=== PATIENT | female | born 1990 | race African-American/Black ===

== ENCOUNTER 2018-08-15 10:41 | Inpatient (IN) | payer OTHER ==
[2018-08-15 11:02] VITALS: BMI 21.4
--- NOTE | 2018-08-15 12:09 | HP ---
CIWA Score Nausea/Vomitin Muscle Tremors: 2 Anxiety: 2 Agitation: 2 Paroxysmal Sweats: 2 Orientation: 0-Oriented Tacttile Disturbances: 1-Very Mild Itch/Numbness Auditory Disturbances: 1-Very Mild Visual Disturbances: 0-None Headache: 2-Mild CIWA-Ar Total Score: 14 - Admission Criteria OASAS Guidelines: Admission for Medically Managed Detox: Requires at least one of the followin. CIWA greater than 12 2. Seizures within the past 24 hours 3. Delirium tremens within the past 24 hours 4. Hallucinations within the past 24 hours 5. Acute intervention needed for co occurring medical disorder 6. Acute intervention needed for co occurring psychiatric disorder 7. Severe withdrawal that cannot be handled at a lower level of care (continued vomiting, continued diarrhea, abnormal vital signs) requiring intravenous medication and/or fluids 8. Patient presents the following: CIWA greater than 12 Admission Criteria Met: Admission criteria met Admission ROS [facility] Chief Complaint: i need help to stop drinking alcohol Allergies/Adverse Reactions: Allergies Allergy/AdvReac Type Severity Reaction Status Date / Time No Known Allergies Allergy Verified 08/15/18 11:13 History of Present Illness: this 27 yearr old female with alcohol dependence,seeking detox,last treatment to 07/16/16, seizure last 04/25 weight loss depression,insomnia,anger longest period of sobriety 6 months - Ebola screening Have you traveled outside of the country in the last 21 days: No Have you had contact with anyone from an Ebola affected area: No Have you been sick,other than usual withdrawal symptoms: No Do you have a fever: No - Review of Systems Constitutional: Loss of Appetite, Malaise, Night Sweats, Changes in sleep, Weakness, Unintentional Wgt. Loss EENT: reports: Tearing, Nose Congestion Respiratory: reports: No Symptoms reported Cardiac: reports: Palpitations GI: reports: Diarrhea, Nausea, Abdominal cramping : reports: No Symptoms Reported Musculoskeletal: reports: Back Pain, Muscle Pain Integumentary: reports: Dryness Neuro: reports: Tremors Endocrine: reports: No Symptoms Reported Hematology: reports: No Symptoms Reported Psychiatric: reports: No Sypmtoms Reported, Judgement Intact, Mood/Affect Appropiate, Orientated x3 (insomnia), Anxious, Depressed Patient History - Patient Medical History Hx Anemia: No Hx Asthma: No Hx Chronic Obstructive Pulmonary Disease (COPD): No Hx Cancer: No Hx Cardiac Disorders: No Hx Congestive Heart Failure: No Hx Hypertension: No Hx Hypercholesterolemia: No Hx Pacemaker: No HX Cerebrovascular Accident: No Hx Seizures: Yes (LAST SEIZURE WAS 2017) Hx Dementia: No Hx Diabetes: No Hx Gastrointestinal Disorders: No Hx Liver Disease: No Hx Genitourinary Disorders: No Hx Sexually Transmitted Disorders: No Hx Renal Disease (ESRD): No Hx Thyroid Disease: No Hx Human Immunodeficiency Virus (HIV): No Hx Hepatitis C: No Hx Depression: Yes (anxiety,insomnia) Hx Suicide Attempt: No Hx Bipolar Disorder: No Hx Schizophrenia: No Other Medical History: no suicidal,no homicidal,sorethroat,coughinbng for 2 days with yellowish sp - Patient Surgical History Past Surgical History: No Hx Neurologic Surgery: No Hx Cataract Extraction: No Hx Cardiac Surgery: No Hx Lung Surgery: No Hx Breast Surgery: No Hx Breast Biopsy: No Hx Abdominal Surgery: No Hx Appendectomy: No Hx Cholecystectomy: No Hx Genitourinary Surgery: No Hx Section: No Hx Orthopedic Surgery: No Anesthesia Reaction: No - PPD History Previous Implant?: Yes Documented Results: Negative w/proof Implanted On Prior [facility] Admission?: Yes Date: 07/15/16 PPD to be Administered?: Yes - Reproductive History Patient is a Female of Child Bearing Age (11 -55 yrs old): Yes Last Menstrual Period: 07/22/18 Patient : No - Smoking Cessation Smoking history: Current every day smoker Have you smoked in the past 12 months: Yes Aproximately how many cigarettes per day: 5 If you are a former smoker, when did you quit?: may 2015( 6 months gestation ) Hx Chewing Tobacco Use: No Initiated information on smoking cessation: Yes 'Breaking Loose' booklet given: 08/15/18 - Substance & Tx. History Hx Alcohol Use: Yes Hx Substance Use: No Substance Use Type: Alcohol Hx Substance Use Treatment: Yes ([facility] 07/13/16 to 07/16/16) - Substances Abused Alcohol Route: Oral Frequency: Daily Amount used: 1PINT -1 LITER OF VODKA Age of first use: 17 Date of Last Use: 08/15/18 Family Disease History - Family Disease History Family History: Denies Admission Physical Exam BHS - Vital Signs Vital Signs: Vital Signs - 24 hr 01/08/19 11:01 Temperature 100.4 F H Pulse Rate 130 H Respiratory 20 Rate Blood Pressure 123/79 - Physical General Appearance: Yes: Moderate Distress, Tremorous, Irritable, Sweating, Anxious HEENTM: Yes: Normal ENT Inspection, FLORY, Pharynx Normal Respiratory: Yes: Lungs Clear, Normal Breath Sounds, No Respiratory Distress Neck: Yes: Within Normal Limits, Supple, Trachea in good position Breast: Yes: Breast Exam Deferred Cardiology: Yes: Within Normal Limits, Regular Rhythm, Regular Rate, S1, S2 Abdominal: Yes: Within Normal Limits, Normal Bowel Sounds, Non Tender, Flat, Soft Genitourinary: Yes: Within Normal Limits Back: Yes: Normal Inspection, Muscle Spasm Musculoskeletal: Yes: Back pain, Muscle Pain Extremities: Yes: Within Normal Limits, Normal Range of Motion, Tremors Neurological: Yes: cancellation clerk II-XII NML intact, Fully Oriented, Alert, Motor Strength 5/5 Integumentary: Yes: Dry Lymphatic: Yes: Within Normal Limits - Diagnostic (1) Alcohol dependence with uncomplicated withdrawal Current Visit: No Status: Chronic (2) Palpitations Current Visit: No Status: Acute (3) Nicotine dependence Current Visit: No Status: Chronic (4) URI (upper respiratory infection) Current Visit: Yes Status: Acute (5) Acute bronchitis Current Visit: Yes Status: Acute Cleared for Admission [facility] - Detox or Rehab [facility] Level of Care: Medically Managed Detox Regimen/Protocol: Librium [facility] Breath Alcohol Content Breath Alcohol Content: 0.013 Urine Pregancy Test - Result Urine Test Results: Negative- NO Line Present Urine Drug Screen - Results Drug Screen Negative: Yes
[2018-08-15] MEDS ORDERED: levETIRAcetam 500 MG TABLET (FP) PO SCH (14:00)
[2018-08-15] MEDS ORDERED: CEPHALEXIN MONOHYDRATE 500 MG CAPSULE (UD) PO SCH (14:00)
[2018-08-15] MEDS ORDERED: P-EPHED 60MG/TRIPROLIDI 2.5MG TABLET PO PRN (14:32)
[2018-08-15] MEDS ORDERED: chlordiazePOXIDE HCL 25 MG CAPSULE PO PRN (14:32)
[2018-08-15] MEDS ORDERED: MAGNESIUM HYDROX 2400MG/30ML ORAL SUSPENSION 30 ML CUP PO PRN (14:32)
[2018-08-15] MEDS ORDERED: ACETAMINOPHEN 325 MG TABLET (FP) PO PRN (14:32)
[2018-08-15] MEDS ORDERED: guaiFENesin/D-METHORPHAN HB 10 ML UNIT-DOSE CUPS PO PRN (14:32)
[2018-08-15] MEDS ORDERED: IBUPROFEN 400 MG TABLET (FP) PO PRN (14:32)
[2018-08-15] MEDS ORDERED: hydrOXYzine PAMOATE 50 MG CAPSULE (FP) PO PRN (14:32)
[2018-08-15] MEDS ORDERED: MAGNESIUM CITRATE 300 ML BOTTLE PO PRN (14:32)
[2018-08-15] MEDS ORDERED: LOPERAMIDE HCL 2 MG CAPSULE PO PRN (14:32)
[2018-08-15] MEDS ORDERED: MAG HYDROX/AL HYDROX/SIMETH 30 ML UNIT-DOSE CUP PO PRN (14:32)
[2018-08-15] MEDS: CEPHALEXIN MONOHYDRATE 500 MG CAPSULE (UD) PO SCH ×2 (17:48→23:04)
[2018-08-15] MEDS: chlordiazePOXIDE HCL 25 MG CAPSULE PO SCH ×2 (17:48→22:07)
[2018-08-15] MEDS: levETIRAcetam 500 MG TABLET (FP) PO SCH (22:07)
[2018-08-15] MEDS: THIAMINE HCL 100 MG TABLET (FP) PO SCH (22:07)
[2018-08-15] MEDS: MELATONIN 5 MG TABLETS PO PRN (23:03)
[2018-08-16] MEDS: chlordiazePOXIDE HCL 25 MG CAPSULE PO SCH ×4 (05:19→22:13)
[2018-08-16] MEDS: CEPHALEXIN MONOHYDRATE 500 MG CAPSULE (UD) PO SCH ×4 (05:19→23:01)
[2018-08-16] MEDS: PRENATAL VITAMINS W/ FOLIC ACID TABLET (FP) PO SCH (10:20)
[2018-08-16] MEDS: levETIRAcetam 500 MG TABLET (FP) PO SCH ×2 (10:20→22:13)
[2018-08-16] MEDS: MENTHOL/PHENOL 1 EACH UD MM PRN (10:22)
[2018-08-16 10:24] LABS: HEMATOCRIT 37.9 % (32.4-45.2); MCH 32.5 pg (25.7-33.7); MCHC 31.7 g/dl (32.0-36.0); MEAN CELL VOLUME 102.4 fl (80-96); MEAN PLT VOLUME 9.7 fl (7.5-11.1); PLATELET COUNT 166 K/MM3 (134-434); RDW 13.5 % (11.6-15.6); WHITE BLOOD COUNT 9.5 K/mm3 (4.0-10.0)
--- NOTE | 2018-08-16 10:32 | PN ---
S CIWA - CIWA Score Nausea/Vomitin-No Nausea/No Vomiting Muscle Tremors: 3 Anxiety: 3 Agitation: 3 Paroxysmal Sweats: 3 Orientation: 0-Oriented Tacttile Disturbances: 0-None Auditory Disturbances: 0-None Visual Disturbances: 0-None Headache: 0-None Present CIWA-Ar Total Score: 12 BHS Progress Note (SOAP) Subjective: tired sweats interrupted sleep body aches Objective: 08/16/18 10:31 Vital Signs Temperature 97.3 F L 08/16/18 09:26 Pulse Rate 78 08/16/18 09:26 Respiratory Rate 18 08/16/18 09:26 Blood Pressure 111/78 08/16/18 09:26 O2 Sat by Pulse Oximetry (%) Assessment: 08/16/18 10:36 withdrawal sx Plan: continue detox increase fluids
[2018-08-16 11:10] LABS: ALBUMIN 3.9 g/dl (3.4-5.0); ALK PHOS 76 U/L (45-117); ANION GAP 14 MMOL/L (8-16); BILIRUBIN,TOTAL 1.4 mg/dL (0.2-1); BLOOD UREA NITROGEN 7 mg/dL (7-18); CALCIUM 9.3 mg/dL (8.5-10.1); CHLORIDE 96 mmol/L (98-107); CO2 24 mmol/L (21-32); CREATININE 0.7 mg/dL (0.55-1.3); GLUCOSE,RANDOM 78 mg/dL (74-106); POTASSIUM 3.8 mmol/L (3.5-5.1); SGOT/AST 51 U/L (15-37); SGPT/ALT 42 U/L (13-61); SODIUM 134 mmol/L (136-145); TOT PROT 8.7 g/dl (6.4-8.2)
[2018-08-16] MEDS: MELATONIN 5 MG TABLETS PO PRN (22:13)
[2018-08-16] MEDS: THIAMINE HCL 100 MG TABLET (FP) PO SCH (22:15)
[2018-08-17] MEDS: chlordiazePOXIDE HCL 25 MG CAPSULE PO SCH ×2 (05:56→10:32)
[2018-08-17] MEDS: CEPHALEXIN MONOHYDRATE 500 MG CAPSULE (UD) PO SCH ×4 (05:57→22:55)
[2018-08-17] MEDS: levETIRAcetam 500 MG TABLET (FP) PO SCH ×2 (10:32→22:16)
[2018-08-17] MEDS: PRENATAL VITAMINS W/ FOLIC ACID TABLET (FP) PO SCH (10:32)
[2018-08-17] MEDS: MENTHOL/PHENOL 1 EACH UD MM PRN (10:35)
--- NOTE | 2018-08-17 13:13 | PN ---
[facility] CIWA - CIWA Score Nausea/Vomitin-No Nausea/No Vomiting Muscle Tremors: None Anxiety: 0-No Anxiety, at Ease Agitation: 0-Normal Activity Paroxysmal Sweats: 3 Orientation: 2-Disoriented Date<2 days Tacttile Disturbances: 3-Moderate Itch/Numb/Burn Auditory Disturbances: 0-None Visual Disturbances: 3-Moderate Sensitivity Headache: 0-None Present CIWA-Ar Total Score: 11 S Progress Note (SOAP) Subjective: Sweating, Diarrhea, Fatigue, Body Aches, Interrupted Sleep. Objective: PATIENT A & O X 2 (UNCERTAIN ABOUT CURRENT DAY / DATE). IN NO ACUTE DISTRESS. 08/17/18 13:10 Vital Signs Temperature 97.5 F L 08/17/18 09:31 Pulse Rate 69 08/17/18 09:31 Respiratory Rate 18 08/17/18 09:31 Blood Pressure 113/67 08/17/18 09:31 O2 Sat by Pulse Oximetry (%) Laboratory Tests 08/16/18 08/16/18 08/16/18 05:45 05:45 05:45 WBC 9.5 RBC 3.70 Hgb 12.0 Hct 37.9 MCV 102.4 H MCH 32.5 MCHC 31.7 L RDW 13.5 D Plt Count 166 D MPV 9.7 D Sodium 134 L Potassium 3.8 Chloride 96 L Carbon Dioxide 24 Anion Gap 14 BUN 7 Creatinine 0.7 Creat Clearance w eGFR > 60 Random Glucose 78 Calcium 9.3 Total Bilirubin 1.4 H AST 51 H ALT 42 Alkaline Phosphatase 76 Total Protein 8.7 H Albumin 3.9 RPR Titer Nonreactive LABS NOTED. Assessment: 08/17/18 13:10 WITHDRAWAL SYMPTOMS. Plan: CONTINUE DETOX. INCREASE DAILY PO FLUID INTAKE. PRN IMMODIUM FOR DIARRHEA.
[2018-08-17] MEDS: chlordiazePOXIDE 5 MG CAPSULE PO SCH ×2 (18:30→22:19)
[2018-08-17] MEDS: THIAMINE HCL 100 MG TABLET (FP) PO SCH (22:16)
[2018-08-17] MEDS: MELATONIN 5 MG TABLETS PO PRN (22:18)
[2018-08-18] MEDS: chlordiazePOXIDE 5 MG CAPSULE PO SCH ×2 (05:12→10:34)
[2018-08-18] MEDS: CEPHALEXIN MONOHYDRATE 500 MG CAPSULE (UD) PO SCH ×4 (05:13→23:09)
[2018-08-18] MEDS: PRENATAL VITAMINS W/ FOLIC ACID TABLET (FP) PO SCH (10:33)
[2018-08-18] MEDS: levETIRAcetam 500 MG TABLET (FP) PO SCH ×2 (10:33→22:23)
--- NOTE | 2018-08-18 12:52 | PN ---
BHS Progress Note (SOAP) Subjective: Pt here for alcohol detox- states feeling tired, but feeling fine. O: Vital Signs - 24 hr 08/17/18 08/17/18 08/17/18 13:41 17:27 22:00 Temperature 98.2 F 97.9 F 98.1 F Pulse Rate 109 H 77 82 Respiratory 18 19 18 Rate Blood Pressure 142/60 116/59 L 119/70 08/18/18 08/18/18 08/18/18 03:30 06:41 09:25 Temperature 97.7 F 97.7 F Pulse Rate 91 H 78 Respiratory 16 16 18 Rate Blood Pressure 120/62 115/77 Laboratory Tests 08/16/18 08/16/18 08/16/18 05:45 05:45 05:45 WBC 9.5 RBC 3.70 Hgb 12.0 Hct 37.9 MCV 102.4 H MCH 32.5 MCHC 31.7 L RDW 13.5 D Plt Count 166 D MPV 9.7 D Sodium 134 L Potassium 3.8 Chloride 96 L Carbon Dioxide 24 Anion Gap 14 BUN 7 Creatinine 0.7 Creat Clearance w eGFR > 60 Random Glucose 78 Calcium 9.3 Total Bilirubin 1.4 H AST 51 H ALT 42 Alkaline Phosphatase 76 Total Protein 8.7 H Albumin 3.9 RPR Titer Nonreactive a/p: alcohol detox- continue detox protocol, pt doing well, considering going to rehab after completing detox
[2018-08-18] MEDS: chlordiazePOXIDE HCL 10 MG CAPSULE PO SCH ×2 (17:47→22:23)
[2018-08-18] MEDS: THIAMINE HCL 100 MG TABLET (FP) PO SCH (22:23)
[2018-08-18] MEDS: MELATONIN 5 MG TABLETS PO PRN (22:24)
[2018-08-19] MEDS: chlordiazePOXIDE HCL 10 MG CAPSULE PO SCH (05:24)
[2018-08-19] MEDS: CEPHALEXIN MONOHYDRATE 500 MG CAPSULE (UD) PO SCH (05:25)
[2018-08-19 06:42] VITALS: BP 106/61; PULSE 84; TEMP 98.2
--- NOTE | 2018-08-19 14:15 | DS ---
[facility] Discharge Summary Admission Date: 08/15/18 Discharge Date: 08/19/18 - History Additional Comments: Pt completed discharge. Pt left unit prior to provider arriving unit Vital Signs Temperature 98.2 F 08/19/18 06:00 Pulse Rate 84 08/19/18 06:00 Respiratory Rate 16 08/19/18 06:00 Blood Pressure 106/61 08/19/18 06:00 O2 Sat by Pulse Oximetry (%) - Physical Exam Results Vital Signs: Vital Signs Temperature 98.2 F 08/19/18 06:00 Pulse Rate 84 08/19/18 06:00 Respiratory Rate 16 08/19/18 06:00 Blood Pressure 106/61 08/19/18 06:00 O2 Sat by Pulse Oximetry (%) - Treatment Hospital Course: Detox Protocol Followed, Detoxed Safely, Responded well, Discharged Condition Good - Medication Discharge Medications: Ambulatory Orders Cephalexin [Keflex] 500 mg PO Q6H 08/15/18 Ibuprofen [Motrin -] 600 mg PO Q6H PRN 08/15/18 Lamotrigine [Lamictal] 25 mg PO DAILY 08/15/18 Multivit,Calc,Mins/Iron/Folic [Therapeutic-M Tablet] 1 each PO DAILY 08/15/18 Thiamine Mononitrate [Vitamin B-1] 100 mg PO DAILY 08/15/18 levETIRAcetam [Keppra -] 500 mg PO Q12H 08/15/18 - AMA Did Patient Leave Against Medical Advice: No
== END 2018-08-19 09:05 | disposition home or self-care (01) | DRG 775 ==
LOC: YASAS 10:41 → Y6N 13:06
PROC: HZ2ZZZZ Detoxification Services for Substance Abuse Treatment (ICD-10-PCS; principal; 2018-08-15)
DX: F10.230 Alcohol dependence with withdrawal, uncomplicated (principal); F17.210 Nicotine dependence, cigarettes, uncomplicated; F41.9 Anxiety disorder, unspecified; F32.9 Major depressive disorder, single episode, unspecified; G40.909 Epilepsy, unspecified, not intractable, without status epilepticus; R00.2 Palpitations; G47.00 Insomnia, unspecified; R63.4 Abnormal weight loss; Z68.21 Body mass index [BMI] 21.0-21.9, adult
CPT/HCPCS: 36415; 80053; 85027; 86593; 93005; 93010

== ENCOUNTER 2018-10-22 08:14 | Inpatient (IN) | payer OTHER ==
[2018-10-22 08:20] VITALS: BMI 20.7
--- NOTE | 2018-10-22 09:09 | HP ---
CIWA Score Nausea/Vomitin Muscle Tremors: 2 Anxiety: 2 Agitation: 2 Paroxysmal Sweats: 1-Minimal Palms Moist Orientation: 0-Oriented Tacttile Disturbances: 1-Very Mild Itch/Numbness Auditory Disturbances: 1-Very Mild Visual Disturbances: 0-None Headache: 2-Mild CIWA-Ar Total Score: 13 - Admission Criteria OASAS Guidelines: Admission for Medically Managed Detox: Requires at least one of the followin. CIWA greater than 12 2. Seizures within the past 24 hours 3. Delirium tremens within the past 24 hours 4. Hallucinations within the past 24 hours 5. Acute intervention needed for co occurring medical disorder 6. Acute intervention needed for co occurring psychiatric disorder 7. Severe withdrawal that cannot be handled at a lower level of care (continued vomiting, continued diarrhea, abnormal vital signs) requiring intravenous medication and/or fluids 8. Patient presents the following: CIWA greater than 12 Admission Criteria Met: Admission criteria met Admission ROS [facility]HS - HPI Chief Complaint: i need help to stop drinking alcohol Allergies/Adverse Reactions: Allergies Allergy/AdvReac Type Severity Reaction Status Date / Time No Known Allergies Allergy Verified 10/22/18 09:29 History of Present Illness: this 28 years old female with alcohol dependence seeking detox,withdrawal symptom, had previous admissions last 08/15/18 to 08/19/18 [facility] seizure for 2 years last 08/26 syncope alcohol related nicotine dependence ,6 cigarette/day no significant period of sobriety Exam Limitations: No Limitations - Ebola screening Have you traveled outside of the country in the last 21 days: No (N) Have you had contact with anyone from an Ebola affected area: No Have you been sick,other than usual withdrawal symptoms: No Do you have a fever: No - Review of Systems Constitutional: Loss of Appetite, Malaise, Night Sweats, Changes in sleep, Weakness, Unintentional Wgt. Loss EENT: reports: Nose Congestion Respiratory: reports: No Symptoms reported Cardiac: reports: No Symptoms Reported GI: reports: Nausea, Poor Appetite, Abdominal cramping : reports: No Symptoms Reported Musculoskeletal: reports: Back Pain, Muscle Pain Integumentary: reports: Dryness Neuro: reports: Tremors Endocrine: reports: No Symptoms Reported Hematology: reports: No Symptoms Reported Psychiatric: reports: No Sypmtoms Reported, Judgement Intact, Mood/Affect Appropiate, Orientated x3, other Other Systems: Reviewed and Negative Patient History - Patient Medical History Hx Anemia: No Hx Asthma: No Hx Chronic Obstructive Pulmonary Disease (COPD): No Hx Cancer: No Hx Cardiac Disorders: No Hx Congestive Heart Failure: No Hx Hypertension: No Hx Hypercholesterolemia: No Hx Pacemaker: No HX Cerebrovascular Accident: No Hx Seizures: Yes (last seizure 08/26) Hx Dementia: No Hx Diabetes: No Hx Gastrointestinal Disorders: No Hx Liver Disease: No Hx Genitourinary Disorders: No Hx Sexually Transmitted Disorders: No Hx Renal Disease (ESRD): No Hx Thyroid Disease: No Hx Human Immunodeficiency Virus (HIV): No (last 08/26 negative) Hx Hepatitis C: No Hx Depression: Yes (anxiety,insomnia) Hx Suicide Attempt: No Hx Bipolar Disorder: No Hx Schizophrenia: No Other Medical History: no suicidal,no homicidal - Patient Surgical History Past Surgical History: No Hx Neurologic Surgery: No Hx Cataract Extraction: No Hx Cardiac Surgery: No Hx Lung Surgery: No Hx Breast Surgery: No Hx Breast Biopsy: No Hx Abdominal Surgery: No Hx Appendectomy: No Hx Cholecystectomy: No Hx Genitourinary Surgery: No Hx Section: No Hx Orthopedic Surgery: No Anesthesia Reaction: No - PPD History Previous Implant?: Yes Documented Results: Negative w/proof Implanted On Prior [facility] Admission?: Yes Date: 08/17/18 Results: 0 mm PPD to be Administered?: No - Reproductive History Patient is a Female of Child Bearing Age (11 -55 yrs old): Yes Last Menstrual Period: 10/08/18 Patient : No - Smoking Cessation Smoking history: Current every day smoker Have you smoked in the past 12 months: Yes Aproximately how many cigarettes per day: 6 If you are a former smoker, when did you quit?: may 2015( 6 months gestation ) Hx Chewing Tobacco Use: No Initiated information on smoking cessation: Yes 'Breaking Loose' booklet given: 10/22/18 - Substance & Tx. History Hx Alcohol Use: Yes Hx Substance Use: No Substance Use Type: Alcohol Hx Substance Use Treatment: Yes ([facility] 08/15/18 to 08/19/18) - Substances Abused Alcohol Route: Oral Frequency: Daily Amount used: 1 pint of vodka Age of first use: 17 Date of Last Use: 10/22/18 Family Disease History - Family Disease History Family Disease History: Other: Mother (nmother ,sober) Admission Physical Exam BHS - Vital Signs Vital Signs: Vital Signs - 24 hr 10/22/18 08:18 Temperature 97.0 F L Pulse Rate 82 Respiratory 18 Rate Blood Pressure 120/88 - Physical General Appearance: Yes: Mild Distress, Intoxicated, Sweating, Anxious HEENTM: Yes: FLORY, Pharynx Normal Respiratory: Yes: Lungs Clear, Normal Breath Sounds, No Respiratory Distress Neck: Yes: Within Normal Limits, Supple, Trachea in good position Breast: Yes: Breast Exam Deferred Cardiology: Yes: Within Normal Limits, Regular Rhythm, Regular Rate, S1, S2 Abdominal: Yes: Within Normal Limits, Normal Bowel Sounds, Non Tender, Flat, Soft Genitourinary: Yes: Within Normal Limits Back: Yes: Muscle Spasm Musculoskeletal: Yes: Back pain, Muscle Pain Extremities: Yes: Tremors Neurological: Yes: flat surfacer jewel II-XII NML intact, Fully Oriented, Alert, Motor Strength 5/5 Integumentary: Yes: Dry Lymphatic: Yes: Within Normal Limits - Diagnostic (1) Alcohol dependence with uncomplicated withdrawal Current Visit: Yes Status: Acute (2) Alcohol dependence with uncomplicated intoxication Current Visit: Yes Status: Acute (3) Seizure Current Visit: Yes Status: Acute (4) Syncope Current Visit: Yes Status: Acute (5) Nicotine dependence Current Visit: No Status: Chronic Qualifiers: Nicotine product type: cigarettes Substance use status: uncomplicated Qualified Code(s): F17.210 - Nicotine dependence, cigarettes, uncomplicated (6) Weight loss Current Visit: No Status: Acute Cleared for Admission [facility] - Detox or Rehab [facility] Level of Care: Medically Managed Detox Regimen/Protocol: Librium [facility] Breath Alcohol Content Breath Alcohol Content: 0.303 Urine Pregancy Test - Result Urine Test Results: Negative - NO Line Present Urine Drug Screen - Results Drug Screen Negative: Yes Inpatient Rehab Admission - Rehab Decision to Admit Inpatient rehab admission?: No
[2018-10-22] MEDS ORDERED: BISMUTH SUBSALICYLATE 524 MG/30 ML UD PO PRN (09:20)
[2018-10-22] MEDS ORDERED: hydrOXYzine PAMOATE 25 MG CAPSULE (FP) PO PRN (09:20)
[2018-10-22] MEDS ORDERED: ACETAMINOPHEN 325 MG TABLET (FP) PO PRN ×2 (09:20)
[2018-10-22] MEDS ORDERED: METHOCARBAMOL 500 MG TABLET PO PRN (09:20)
[2018-10-22] MEDS ORDERED: IBUPROFEN 400 MG TABLET (FP) PO PRN (09:20)
[2018-10-22] MEDS ORDERED: MAGNESIUM CITRATE 300 ML BOTTLE PO PRN (09:20)
[2018-10-22] MEDS ORDERED: chlordiazePOXIDE HCL 25 MG CAPSULE PO PRN (09:20)
[2018-10-22] MEDS ORDERED: MAG HYDROX/AL HYDROX/SIMETH 30 ML UNIT-DOSE CUP PO PRN (09:20)
[2018-10-22] MEDS ORDERED: MAGNESIUM HYDROX 2400MG/30ML ORAL SUSPENSION 30 ML CUP PO PRN (09:20)
[2018-10-22] MEDS ORDERED: MENTHOL/PHENOL 1 EACH UD MM PRN (09:20)
[2018-10-22] MEDS: PRENATAL VITAMINS W/ FOLIC ACID TABLET (FP) PO SCH (11:51)
[2018-10-22] MEDS: levETIRAcetam 500 MG TABLET (FP) PO SCH ×2 (11:51→22:27)
[2018-10-22] MEDS: chlordiazePOXIDE HCL 25 MG CAPSULE PO SCH ×2 (17:48→22:27)
[2018-10-22] MEDS: THIAMINE HCL 100 MG TABLET (FP) PO SCH (22:27)
[2018-10-22] MEDS: MELATONIN 5 MG TABLETS PO PRN (22:28)
[2018-10-23] MEDS: chlordiazePOXIDE HCL 25 MG CAPSULE PO SCH ×4 (06:16→22:14)
[2018-10-23 10:00] LABS: URINE APPEARANCE SLCLOUDY; URINE BILIRUBIN NEGATIVE (<2.0 mg/dL); URINE COLOR AMBER; URINE GLUCOSE (UA) NEGATIVE (NEGATIVE); URINE KETONE NEGATIVE (NEGATIVE); URINE LEUK ESTERASE 1+ (NEGATIVE); URINE NITRITE NEGATIVE (NEGATIVE); URINE PROTEIN 1+ (NEGATIVE); URINE UROBILINOGEN 4.0 E.U/dl mg/dL (0.2-1.0)
[2018-10-23 10:01] LABS: HEMATOCRIT 31.3 % (32.4-45.2); HEMOGLOBIN 10.6 GM/dL (10.7-15.3); MCHC 33.9 g/dl (32.0-36.0); MEAN CELL VOLUME 100.3 fl (80-96); MEAN PLT VOLUME 7.8 fl (7.5-11.1); PLATELET COUNT 288 K/MM3 (134-434); RBC 3.12 M/mm3 (3.60-5.2); RDW 14.8 % (11.6-15.6); WHITE BLOOD COUNT 3.2 K/mm3 (4.0-10.0)
[2018-10-23 10:07] LABS: EPI CELLS FEW /HPF (FEW); URINE HYALINE CAST 2 /lpf; URINE MUCUS MANY
[2018-10-23 10:08] LABS: ALBUMIN 3.3 g/dl (3.4-5.0); ALK PHOS 63 U/L (45-117); ANION GAP 7 MMOL/L (8-16); BILIRUBIN,TOTAL 1.3 mg/dL (0.2-1); BLOOD UREA NITROGEN 4 mg/dL (7-18); CALCIUM 8.7 mg/dL (8.5-10.1); CHLORIDE 99 mmol/L (98-107); CO2 29 mmol/L (21-32); CREATININE 0.6 mg/dL (0.55-1.3); GLUCOSE,RANDOM 71 mg/dL (74-106); POTASSIUM 3.8 mmol/L (3.5-5.1); SGOT/AST 59 U/L (15-37); SGPT/ALT 77 U/L (13-61); SODIUM 136 mmol/L (136-145); TOT PROT 7.2 g/dl (6.4-8.2)
[2018-10-23] MEDS: PRENATAL VITAMINS W/ FOLIC ACID TABLET (FP) PO SCH (10:32)
[2018-10-23] MEDS: levETIRAcetam 500 MG TABLET (FP) PO SCH ×2 (10:32→22:14)
--- NOTE | 2018-10-23 10:45 | PN ---
[facility] CIWA - CIWA Score Nausea/Vomitin-No Nausea/No Vomiting Muscle Tremors: 3 Anxiety: 3 Agitation: 3 Paroxysmal Sweats: 3 Orientation: 0-Oriented Tacttile Disturbances: 0-None Auditory Disturbances: 0-None Visual Disturbances: 0-None Headache: 0-None Present CIWA-Ar Total Score: 12 S Progress Note (SOAP) Subjective: tired sweats shakes interrupted sleep body aches Objective: 10/23/18 10:43 Vital Signs Temperature 97.7 F 10/23/18 09:24 Pulse Rate 65 10/23/18 09:24 Respiratory Rate 18 10/23/18 09:24 Blood Pressure 111/64 10/23/18 09:24 O2 Sat by Pulse Oximetry (%) Laboratory Tests 10/23/18 10/23/18 10/23/18 07:40 07:40 07:40 WBC 3.2 L RBC 3.12 L Hgb 10.6 L Hct 31.3 L D MCV 100.3 H MCH 34.0 H MCHC 33.9 RDW 14.8 Plt Count 288 D MPV 7.8 D Sodium 136 Potassium 3.8 Chloride 99 Carbon Dioxide 29 Anion Gap 7 L BUN 4 L Creatinine 0.6 Creat Clearance w eGFR 119.04 Random Glucose 71 L Calcium 8.7 Total Bilirubin 1.3 H AST 59 H ALT 77 H Alkaline Phosphatase 63 Total Protein 7.2 Albumin 3.3 L Urine Color [place] Urine Appearance Slcloudy Urine pH 6.0 Ur Specific [place] 1.028 Urine Protein 1+ H Urine Glucose (UA) Negative Urine Ketones Negative Urine Blood Negative Urine Nitrite Negative Urine Bilirubin Negative Urine Urobilinogen 4.0 e.u/dl H Ur Leukocyte Esterase 1+ H Urine WBC (Auto) 30 Urine RBC (Auto) 24 Ur Epithelial Cells Few Hyaline Casts 2 Urine Mucus Many labs noted aaox3 ambulating no acute distress repeated labs and u/a Assessment: 10/23/18 10:45 withdrawal sx Plan: continue detox increase fluids
[2018-10-23] MEDS: MELATONIN 5 MG TABLETS PO PRN (22:15)
[2018-10-23] MEDS: THIAMINE HCL 100 MG TABLET (FP) PO SCH (22:15)
[2018-10-24] MEDS: chlordiazePOXIDE HCL 25 MG CAPSULE PO SCH ×2 (05:53→10:28)
[2018-10-24] MEDS: PRENATAL VITAMINS W/ FOLIC ACID TABLET (FP) PO SCH (10:28)
[2018-10-24] MEDS: levETIRAcetam 500 MG TABLET (FP) PO SCH ×2 (10:28→22:06)
[2018-10-24 11:23] LABS: BASO % 0.7 % (0-2.0); EOS % 2.9 % (0-4.5); HEMATOCRIT 37.5 % (32.4-45.2); HEMOGLOBIN 12.7 GM/dL (10.7-15.3); LYMPH % 40.8 % (8-40); MCH 34.6 pg (25.7-33.7); MCHC 33.9 g/dl (32.0-36.0); MEAN CELL VOLUME 101.9 fl (80-96); MONO % 9.1 % (3.8-10.2); NEUT % 46.5 % (42.8-82.8); PLATELET COUNT 305 K/MM3 (134-434); RBC 3.68 M/mm3 (3.60-5.2); WHITE BLOOD COUNT 4.6 K/mm3 (4.0-10.0)
[2018-10-24 11:42] LABS: ALBUMIN 3.6 g/dl (3.4-5.0); ALK PHOS 76 U/L (45-117); ANION GAP 5 MMOL/L (8-16); BILIRUBIN,TOTAL 1.1 mg/dL (0.2-1); BLOOD UREA NITROGEN 5 mg/dL (7-18); CALCIUM 9.6 mg/dL (8.5-10.1); CHLORIDE 99 mmol/L (98-107); CO2 32 mmol/L (21-32); CREATININE 0.6 mg/dL (0.55-1.3); GLUCOSE,RANDOM 74 mg/dL (74-106); POTASSIUM 4.3 mmol/L (3.5-5.1); SGOT/AST 55 U/L (15-37); SGPT/ALT 74 U/L (13-61); SODIUM 135 mmol/L (136-145); TOT PROT 8.1 g/dl (6.4-8.2)
--- NOTE | 2018-10-24 11:50 | PN ---
[facility] CIWA - CIWA Score Nausea/Vomitin-No Nausea/No Vomiting Muscle Tremors: 3 Anxiety: 3 Agitation: 3 Paroxysmal Sweats: 2 Orientation: 0-Oriented Tacttile Disturbances: 0-None Auditory Disturbances: 0-None Visual Disturbances: 0-None Headache: 0-None Present CIWA-Ar Total Score: 11 S Progress Note (SOAP) Subjective: irritable agitation low appetite Objective: 10/24/18 11:48 Vital Signs Temperature 98.3 F 10/24/18 09:38 Pulse Rate 69 10/24/18 09:38 Respiratory Rate 18 10/24/18 09:38 Blood Pressure 114/72 10/24/18 09:38 O2 Sat by Pulse Oximetry (%) Laboratory Tests 10/23/18 10/23/18 10/23/18 07:40 07:40 07:40 WBC 3.2 L RBC 3.12 L Hgb 10.6 L Hct 31.3 L D MCV 100.3 H MCH 34.0 H MCHC 33.9 RDW 14.8 Plt Count 288 D MPV 7.8 D Absolute Neuts (auto) Neutrophils % Lymphocytes % Monocytes % Eosinophils % Basophils % Nucleated RBC % Sodium 136 Potassium 3.8 Chloride 99 Carbon Dioxide 29 Anion Gap 7 L BUN 4 L Creatinine 0.6 Creat Clearance w eGFR 119.04 Random Glucose 71 L Calcium 8.7 Total Bilirubin 1.3 H AST 59 H ALT 77 H Alkaline Phosphatase 63 Total Protein 7.2 Albumin 3.3 L Urine Color Urine Appearance Urine pH Ur Specific [place] Urine Protein Urine Glucose (UA) Urine Ketones Urine Blood Urine Nitrite Urine Bilirubin Urine Urobilinogen Ur Leukocyte Esterase Urine WBC (Auto) Urine RBC (Auto) Ur Epithelial Cells Hyaline Casts Urine Mucus RPR Titer Nonreactive 10/23/18 10/24/18 10/24/18 07:40 07:30 07:30 WBC 4.6 RBC 3.68 Hgb 12.7 Hct 37.5 D MCV 101.9 H MCH 34.6 H MCHC 33.9 RDW 15.0 Plt Count 305 MPV 8.0 Absolute Neuts (auto) 2.1 Neutrophils % 46.5 Lymphocytes % 40.8 H Monocytes % 9.1 Eosinophils % 2.9 D Basophils % 0.7 Nucleated RBC % 0 Sodium 135 L Potassium 4.3 Chloride 99 Carbon Dioxide 32 Anion Gap 5 L BUN 5 L Creatinine 0.6 Creat Clearance w eGFR 119.04 Random Glucose 74 Calcium 9.6 Total Bilirubin 1.1 H AST 55 H ALT 74 H Alkaline Phosphatase 76 Total Protein 8.1 Albumin 3.6 Urine Color [place] Urine Appearance Slcloudy Urine pH 6.0 Ur Specific [place] 1.028 Urine Protein 1+ H Urine Glucose (UA) Negative Urine Ketones Negative Urine Blood Negative Urine Nitrite Negative Urine Bilirubin Negative Urine Urobilinogen 4.0 e.u/dl H Ur Leukocyte Esterase 1+ H Urine WBC (Auto) 30 Urine RBC (Auto) 24 Ur Epithelial Cells Few Hyaline Casts 2 Urine Mucus Many RPR Titer u/a pending labs noted; ast/alt improving aaox3 ambulating no acute distress Assessment: 10/24/18 11:50 withdrawal sx Plan: continue detox increase fluids u/a pending
[2018-10-24] MEDS ORDERED: chlordiazePOXIDE HCL 10 MG CAPSULE PO PRN (17:00)
[2018-10-24] MEDS: chlordiazePOXIDE HCL 10 MG CAPSULE PO SCH ×2 (17:32→22:08)
[2018-10-24 20:11] LABS: URINE APPEARANCE SLCLOUDY; URINE BILIRUBIN NEGATIVE (<2.0 mg/dL); URINE COLOR LTYELLOW; URINE GLUCOSE (UA) NEGATIVE (NEGATIVE); URINE KETONE NEGATIVE (NEGATIVE); URINE LEUK ESTERASE NEGATIVE (NEGATIVE); URINE NITRITE NEGATIVE (NEGATIVE); URINE PROTEIN NEGATIVE (NEGATIVE); URINE UROBILINOGEN NEGATIVE mg/dL (0.2-1.0)
[2018-10-24] MEDS: THIAMINE HCL 100 MG TABLET (FP) PO SCH (22:06)
[2018-10-24] MEDS: MELATONIN 5 MG TABLETS PO PRN (22:07)
[2018-10-25] MEDS: chlordiazePOXIDE HCL 10 MG CAPSULE PO SCH ×3 (05:46→17:47)
[2018-10-25] MEDS: levETIRAcetam 500 MG TABLET (FP) PO SCH ×2 (10:40→22:10)
[2018-10-25] MEDS: PRENATAL VITAMINS W/ FOLIC ACID TABLET (FP) PO SCH (10:40)
--- NOTE | 2018-10-25 14:14 | PN ---
[facility] Progress Note (SOAP) Subjective: feeling better sweats Objective: 10/25/18 14:14 Vital Signs Temperature 97.7 F 10/25/18 09:55 Pulse Rate 61 10/25/18 09:55 Respiratory Rate 18 10/25/18 09:55 Blood Pressure 117/59 L 10/25/18 09:55 O2 Sat by Pulse Oximetry (%) aaox3 ambulating no acute distress Assessment: 10/25/18 14:14 mild withdrawal sx Plan: continue detox increase fluids d/c in am
[2018-10-25] MEDS: MELATONIN 5 MG TABLETS PO PRN (22:09)
[2018-10-25] MEDS: THIAMINE HCL 100 MG TABLET (FP) PO SCH (22:09)
[2018-10-26] MEDS: chlordiazePOXIDE HCL 10 MG CAPSULE PO SCH (06:03)
[2018-10-26 10:09] VITALS: BP 100/73; PULSE 76; TEMP 97
[2018-10-26] MEDS: PRENATAL VITAMINS W/ FOLIC ACID TABLET (FP) PO SCH (10:11)
[2018-10-26] MEDS: levETIRAcetam 500 MG TABLET (FP) PO SCH (10:11)
--- NOTE | 2018-10-26 14:13 | DS ---
[facility] Detox Discharge Summary Admission Date: 10/22/18 Discharge Date: 10/26/18 - History Present History: Alcohol Dependence Additional Comments: PATIENT GOING TO [facility] ([place], [place]) FOR AFTERCARE. PATIENT WAS DISCHARGED FROM DETOX UNIT IN STABLE MEDICAL CONDITION. ACCORDING TO PHARMACIST 'ZENIA SALAZAR' AT [facility] ([place], [place]), PATIENT A REFILL OF KEPPRA (FOR PREVENTION OF SEIZURES) REMAINING AT THAT PHARMACY WAITING TO BE PICKED UP BY PATIENT. Pertinent Past History: History of Seizures, History of Depression, Anxiety, History of Insomnia, Weight Loss, Nicotine Dependence, Syncope. - Physical Exam Results Vital Signs: Vital Signs Temperature 97.0 F L 10/26/18 10:08 Pulse Rate 76 10/26/18 10:08 Respiratory Rate 16 10/26/18 10:08 Blood Pressure 100/73 10/26/18 10:08 O2 Sat by Pulse Oximetry (%) Pertinent Admission Physical Exam Findings: WITHDRAWAL SYMPTOMS. Laboratory Tests 10/23/18 10/23/18 10/23/18 07:40 07:40 07:40 WBC 3.2 L RBC 3.12 L Hgb 10.6 L Hct 31.3 L D MCV 100.3 H MCH 34.0 H MCHC 33.9 RDW 14.8 Plt Count 288 D MPV 7.8 D Absolute Neuts (auto) Neutrophils % Lymphocytes % Monocytes % Eosinophils % Basophils % Nucleated RBC % Sodium 136 Potassium 3.8 Chloride 99 Carbon Dioxide 29 Anion Gap 7 L BUN 4 L Creatinine 0.6 Creat Clearance w eGFR 119.04 Random Glucose 71 L Calcium 8.7 Total Bilirubin 1.3 H AST 59 H ALT 77 H Alkaline Phosphatase 63 Total Protein 7.2 Albumin 3.3 L Urine Color Urine Appearance Urine pH Ur Specific [place] Urine Protein Urine Glucose (UA) Urine Ketones Urine Blood Urine Nitrite Urine Bilirubin Urine Urobilinogen Ur Leukocyte Esterase Urine WBC (Auto) Urine RBC (Auto) Ur Epithelial Cells Hyaline Casts Urine Mucus RPR Titer Nonreactive 10/23/18 10/24/18 10/24/18 07:40 07:30 07:30 WBC 4.6 RBC 3.68 Hgb 12.7 Hct 37.5 D MCV 101.9 H MCH 34.6 H MCHC 33.9 RDW 15.0 Plt Count 305 MPV 8.0 Absolute Neuts (auto) 2.1 Neutrophils % 46.5 Lymphocytes % 40.8 H Monocytes % 9.1 Eosinophils % 2.9 D Basophils % 0.7 Nucleated RBC % 0 Sodium 135 L Potassium 4.3 Chloride 99 Carbon Dioxide 32 Anion Gap 5 L BUN 5 L Creatinine 0.6 Creat Clearance w eGFR 119.04 Random Glucose 74 Calcium 9.6 Total Bilirubin 1.1 H AST 55 H ALT 74 H Alkaline Phosphatase 76 Total Protein 8.1 Albumin 3.6 Urine Color [place] Urine Appearance Slcloudy Urine pH 6.0 Ur Specific [place] 1.028 Urine Protein 1+ H Urine Glucose (UA) Negative Urine Ketones Negative Urine Blood Negative Urine Nitrite Negative Urine Bilirubin Negative Urine Urobilinogen 4.0 e.u/dl H Ur Leukocyte Esterase 1+ H Urine WBC (Auto) 30 Urine RBC (Auto) 24 Ur Epithelial Cells Few Hyaline Casts 2 Urine Mucus Many RPR Titer 10/24/18 11:50 WBC RBC Hgb Hct MCV MCH MCHC RDW Plt Count MPV Absolute Neuts (auto) Neutrophils % Lymphocytes % Monocytes % Eosinophils % Basophils % Nucleated RBC % Sodium Potassium Chloride Carbon Dioxide Anion Gap BUN Creatinine Creat Clearance w eGFR Random Glucose Calcium Total Bilirubin AST ALT Alkaline Phosphatase Total Protein Albumin Urine Color Ltyellow Urine Appearance Slcloudy Urine pH 7.0 Ur Specific [place] 1.010 Urine Protein Negative Urine Glucose (UA) Negative Urine Ketones Negative Urine Blood Negative Urine Nitrite Negative Urine Bilirubin Negative Urine Urobilinogen Negative Ur Leukocyte Esterase Negative Urine WBC (Auto) Urine RBC (Auto) Ur Epithelial Cells Hyaline Casts Urine Mucus RPR Titer LABS NOTED. - Treatment Hospital Course: Detox Protocol Followed, Detoxed Safely, Responded well, Discharged Condition Good Patient has Accepted a Rehab Referral to: PT. REFERRED TO [facility] ([place], [place]). - Medication Discharge Medications: Ambulatory Orders Ibuprofen [Motrin -] 600 mg PO Q6H PRN 08/15/18 Lamotrigine [Lamictal] 25 mg PO DAILY 08/15/18 Multivit,Calc,Mins/Iron/Folic [Therapeutic-M Tablet] 1 each PO DAILY 08/15/18 Thiamine Mononitrate [Vitamin B-1] 100 mg PO DAILY 08/15/18 levETIRAcetam [Keppra -] 500 mg PO Q12H 08/15/18 - Diagnosis (1) Alcohol dependence with uncomplicated intoxication Status: Acute (2) Alcohol dependence with uncomplicated withdrawal Status: Acute (3) Seizure Status: Acute (4) Syncope Status: Acute Qualifiers: Syncope type: unspecified Qualified Code(s): R55 - Syncope and collapse (5) Weight loss Status: Acute (6) Nicotine dependence Status: Chronic Qualifiers: Nicotine product type: cigarettes Substance use status: uncomplicated Qualified Code(s): F17.210 - Nicotine dependence, cigarettes, uncomplicated - AMA Did Patient Leave Against Medical Advice: No
== END 2018-10-26 10:25 | disposition home or self-care (01) | DRG 775 ==
LOC: YASAS 08:14 → Y6N 09:21
PROVIDERS: ADMIT Surgery; ATTEND Surgery
PROC: HZ2ZZZZ Detoxification Services for Substance Abuse Treatment (ICD-10-PCS; principal; 2018-10-22)
DX: F10.230 Alcohol dependence with withdrawal, uncomplicated (principal); F17.213 Nicotine dependence, cigarettes, with withdrawal; F41.8 Other specified anxiety disorders; F32.9 Major depressive disorder, single episode, unspecified; G40.909 Epilepsy, unspecified, not intractable, without status epilepticus; G47.00 Insomnia, unspecified; R55 Syncope and collapse; R63.4 Abnormal weight loss; Z68.20 Body mass index [BMI] 20.0-20.9, adult
CPT/HCPCS: 36415; 80053; 81003; 81015; 85025; 85027; 86593

== ENCOUNTER 2018-11-21 19:06 | Inpatient (IN) | payer OTHER ==
[2018-11-21 22:38] VITALS: BMI 21.6
--- NOTE | 2018-11-21 23:53 | HP ---
CIWA Score Nausea/Vomitin-No Nausea/No Vomiting Muscle Tremors: 4-Moderate,w/Arms Extend Anxiety: 1-Mildly Anxious Agitation: 1-Slight > Activity Paroxysmal Sweats: 3 Orientation: 0-Oriented Tacttile Disturbances: 0-None Auditory Disturbances: 0-None Visual Disturbances: 0-None Headache: 0-None Present CIWA-Ar Total Score: 9 - Admission Criteria OAS Guidelines: Admission for Medically Managed Detox: Requires at least one of the followin. CIWA greater than 12 2. Seizures within the past 24 hours 3. Delirium tremens within the past 24 hours 4. Hallucinations within the past 24 hours 5. Acute intervention needed for co occurring medical disorder 6. Acute intervention needed for co occurring psychiatric disorder 7. Severe withdrawal that cannot be handled at a lower level of care (continued vomiting, continued diarrhea, abnormal vital signs) requiring intravenous medication and/or fluids 8. Patient presents the following: Acute intervention needed for co-occurring med or psych disorder Admission Criteria Met: Admission criteria met Admission ROS S - [facility] Chief Complaint: C/O WITHDRAWAL SX'S. SEEKING DETOX TXMENT Allergies/Adverse Reactions: Allergies Allergy/AdvReac Type Severity Reaction Status Date / Time No Known Allergies Allergy Verified 11/21/18 23:28 History of Present Illness: 28 Y.O. FEMALE WITH HX/O ALCOHOLISM HERE FOR DETOX. CLIENT IS SELF REFERRED. KNOWN TO THE PROGRAM. COMPLETED DETOX 1 MONTH AGO REPORTS RELAPSING SHORTLY THERE AFTER. PRESENTS WITH C/O WITHDRAWAL SX'S. CIWA 10. REPORTS HX/O ALCOHOL WITHDRAWAL SZ when abruptly stopping alcohol intake. LAST SZ 1 MONTH AGO. DENIES SI/HI/AVH. DENIES ANY SIGNIFICANT PERIOD OF CLEAN TIME. UNDOMICILED, HRA , DENIES LEGALS Exam Limitations: No Limitations - Ebola screening Have you traveled outside of the country in the last 21 days: No (N) Have you had contact with anyone from an Ebola affected area: No Do you have a fever: No - Review of Systems Constitutional: Chills, Loss of Appetite, Night Sweats, Changes in sleep EENT: reports: Dental Problems (TOOTH ACHE MISSING TEETH) Respiratory: reports: No Symptoms reported Cardiac: reports: No Symptoms Reported GI: reports: Diarrhea, Poor Appetite : reports: No Symptoms Reported Musculoskeletal: reports: No Symptoms Reported Integumentary: reports: Bruising, Flushing Neuro: reports: Seizure (R/T ALCOHOL WITHDRAWAL) Endocrine: reports: No Symptoms Reported Hematology: reports: No Symptoms Reported Psychiatric: reports: Orientated x3, Anxious, Depressed Other Systems: Reviewed and Negative Patient History - Patient Medical History Hx Anemia: No Hx Asthma: No Hx Chronic Obstructive Pulmonary Disease (COPD): No Hx Cancer: No Hx Cardiac Disorders: No Hx Congestive Heart Failure: No Hx Hypertension: No Hx Hypercholesterolemia: No Hx Pacemaker: No HX Cerebrovascular Accident: No Hx Seizures: Yes (LAST 10/24) Hx Dementia: No Hx Diabetes: No Hx Gastrointestinal Disorders: No Hx Liver Disease: No Hx Genitourinary Disorders: No Hx Sexually Transmitted Disorders: No Hx Renal Disease (ESRD): No Hx Thyroid Disease: No Hx Human Immunodeficiency Virus (HIV): No (last 08/26 negative) Hx Hepatitis C: No Hx Depression: Yes Hx Suicide Attempt: No Hx Bipolar Disorder: No Hx Schizophrenia: No - Patient Surgical History Past Surgical History: No Hx Neurologic Surgery: No Hx Cataract Extraction: No Hx Cardiac Surgery: No Hx Lung Surgery: No Hx Breast Surgery: No Hx Breast Biopsy: No Hx Abdominal Surgery: No Hx Appendectomy: No Hx Cholecystectomy: No Hx Genitourinary Surgery: No Hx Section: No Hx Orthopedic Surgery: No Anesthesia Reaction: No - PPD History Previous Implant?: Yes Documented Results: Negative w/proof Implanted On Prior [facility] Admission?: Yes Date: 08/17/18 Results: 0 mm PPD to be Administered?: No - Reproductive History Patient is a Female of Child Bearing Age (11 -55 yrs old): Yes Last Menstrual Period: 11/11/18 Patient : No ([facility]) - Smoking Cessation Smoking history: Current every day smoker Have you smoked in the past 12 months: Yes Aproximately how many cigarettes per day: 7 Cigars Per Day: 0 Hx Chewing Tobacco Use: No Initiated information on smoking cessation: Yes 'Breaking Loose' booklet given: 11/21/18 - Substance & Tx. History Hx Alcohol Use: Yes Hx Substance Use: Yes Substance Use Type: Alcohol Hx Substance Use Treatment: Yes ([facility]) - Substances abused Alcohol Substance route: Oral Frequency: Daily Amount used: 1 PINT- 1LITER Age of first use: 17 Date of last use: 11/20/18 Family Disease History - Family Disease History Family Disease History: Other: Mother (nmother ,sober) Admission Physical Exam [facility] - Vital Signs Vital Signs: Vital Signs - 24 hr 11/21/18 11/21/18 11/21/18 22:37 22:45 23:07 Temperature 98.5 F 98.5 F 98.5 F Pulse Rate 81 81 81 Respiratory 16 16 16 Rate Blood Pressure 106/75 106/75 106/75 - Physical General Appearance: Yes: Tremorous, Anxious HEENTM: Yes: EOMI, Normal ENT Inspection, Normocephalic, FLORY, Pharynx Normal, Other (MISSING TEETH) Respiratory: Yes: Chest Non-Tender, Lungs Clear, Normal Breath Sounds, No Respiratory Distress, No Accessory Muscle Use Neck: Yes: No masses,lesions,Nodules, Supple, Trachea in good position Breast: Yes: Breast Exam Deferred Cardiology: Yes: Regular Rhythm, Regular Rate, S1, S2 Abdominal: Yes: Non Tender, Soft, Increased Bowel Sounds Genitourinary: Yes: Within Normal Limits Back: Yes: Normal Inspection Musculoskeletal: Yes: full range of Motion, Gait Steady Extremities: Yes: Normal Range of Motion, Non-Tender, Tremors Neurological: Yes: Alert, Motor Strength 5/5, Depressed Affect Integumentary: Yes: Dry, Warm, Other (RESOLVING ECCHYMOSIS TO) Lymphatic: Yes: Within Normal Limits - Diagnostic (1) Cannabis abuse, uncomplicated Current Visit: Yes Status: Acute (2) Depressed affect Current Visit: Yes Status: Acute (3) Homeless Current Visit: Yes Status: Acute (4) At risk for dehydration due to poor fluid intake Current Visit: Yes Status: Acute (5) Alcohol dependence with uncomplicated withdrawal Current Visit: Yes Status: Acute (6) Nicotine dependence Current Visit: Yes Status: Chronic Qualifiers: Nicotine product type: cigarettes Substance use status: uncomplicated Qualified Code(s): F17.210 - Nicotine dependence, cigarettes, uncomplicated (7) Alcohol withdrawal seizure Current Visit: Yes Status: Chronic Qualifiers: Complication of substance-induced condition: uncomplicated Qualified Code(s ): F10.230 - Alcohol dependence with withdrawal, uncomplicated (8) Substance induced mood disorder Current Visit: Yes Status: Acute Cleared for Admission [facility] - Detox or Rehab [facility] Level of Care: Medically Managed Detox Regimen/Protocol: Librium Claeared for Rehab Admission: No Breathalyzer - Breathalyzer Breathalyzer: 0 POC Urine test - Test device test lot number: [id number] Expiration date: 04/07/20 - Control test control: Yes - Result Urine Test Results: Negative - NO line present Urine Drug Screen - Test Device Lot number: [id number] Expiration date: 07/07/20 - Control Is test valid?: Yes - Results Drug screen NEGATIVE: No Urine drug screen results: THC-Marijuana, BZO-Benzodiazepines Inpatient Rehab Admission - Rehab Decision to Admit Inpatient rehab admission?: No
[2018-11-22] MEDS ORDERED: DICYCLOMINE HCL 10 MG CAPSULE PO PRN
[2018-11-22] MEDS ORDERED: guaiFENesin 200 MG/10 ML 10 ML UNIT-DOSE CUPS PO PRN
[2018-11-22] MEDS ORDERED: BISMUTH SUBSALICYLATE 524 MG/30 ML UD PO PRN
[2018-11-22] MEDS ORDERED: ONDANSETRON *ODT* 4 MG TABLET SL PRN
[2018-11-22] MEDS ORDERED: chlordiazePOXIDE HCL 10 MG CAPSULE PO PRN
[2018-11-22] MEDS ORDERED: METHOCARBAMOL 500 MG TABLET PO PRN
[2018-11-22] MEDS ORDERED: MAG HYDROX/AL HYDROX/SIMETH 30 ML UNIT-DOSE CUP PO PRN
[2018-11-22] MEDS ORDERED: ACETAMINOPHEN 325 MG TABLET (FP) PO PRN ×2
[2018-11-22] MEDS ORDERED: MAGNESIUM CITRATE 300 ML BOTTLE PO PRN
[2018-11-22] MEDS ORDERED: MENTHOL/PHENOL 1 EACH UD MM PRN
[2018-11-22] MEDS ORDERED: IBUPROFEN 400 MG TABLET (FP) PO PRN ×2
[2018-11-22] MEDS ORDERED: P-EPHED 60MG/TRIPROLIDI 2.5MG TABLET PO PRN
[2018-11-22] MEDS ORDERED: NICOTINE POLACRILEX 2 MG GUM BUC PRN
[2018-11-22] MEDS ORDERED: MAGNESIUM HYDROX 2400MG/30ML ORAL SUSPENSION 30 ML CUP PO PRN
[2018-11-22] MEDS ORDERED: chlordiazePOXIDE HCL 25 MG CAPSULE PO ONE
[2018-11-22] MEDS: levETIRAcetam 500 MG TABLET (FP) PO SCH ×3 (01:12→22:16)
[2018-11-22] MEDS: chlordiazePOXIDE HCL 25 MG CAPSULE PO SCH ×3 (05:53→22:16)
[2018-11-22] MEDS: PRENATAL VITAMINS W/ FOLIC ACID TABLET (FP) PO SCH (09:44)
[2018-11-22] MEDS: NICOTINE 14 MG/24 HOURS TOPICAL PATCH TD SCH (09:44)
--- NOTE | 2018-11-22 12:09 | PN ---
S CIWA - CIWA Score Nausea/Vomitin-No Nausea/No Vomiting Muscle Tremors: 3 Anxiety: 3 Agitation: 3 Paroxysmal Sweats: 3 Orientation: 0-Oriented Tacttile Disturbances: 0-None Auditory Disturbances: 0-None Visual Disturbances: 0-None Headache: 0-None Present CIWA-Ar Total Score: 12 [facility] Progress Note (SOAP) Subjective: restless agitation interrupted sleep body aches sweats Objective: 11/22/18 12:09 Vital Signs Temperature 97.9 F 11/22/18 09:40 Pulse Rate 57 L 11/22/18 09:40 Respiratory Rate 16 11/22/18 09:40 Blood Pressure 108/69 11/22/18 09:40 O2 Sat by Pulse Oximetry (%) labs pending aaox3 ambulating no acute distress Assessment: 11/22/18 12:09 withdrawal sx Plan: continue detox increase fluids pending labs ensure bid
[2018-11-22 15:01] LABS: EPI CELLS 12.1 /HPF (0-5/HPF); PH,URINE 7.5 (5.0-8.0); URINE APPEARANCE TURBID; URINE BACTERIA 164.8 /hpf (NEGATIVE); URINE BILIRUBIN 1+ (NEGATIVE); URINE CASTS 20 /lpf (0-8); URINE COLOR DK YELLOW; URINE GLUCOSE (UA) NEGATIVE (NEGATIVE); URINE KETONE TRACE (NEGATIVE); URINE LEUK ESTERASE 2+ (NEGATIVE); URINE NITRITE NEGATIVE (NEGATIVE); URINE PROTEIN TRACE (NEGATIVE); URINE UROBILINOGEN 4.0 E.U/dl mg/dL (0.2-1.0); URINE WBC 33 /hpf (0-5)
[2018-11-22 15:57] LABS: URINE RBC NONE SEEN /hpf (0-4)
[2018-11-22] MEDS: THIAMINE HCL 100 MG TABLET (FP) PO SCH (22:17)
[2018-11-22] MEDS: MELATONIN 5 MG TABLETS PO PRN (22:17)
[2018-11-23] MEDS: chlordiazePOXIDE 5 MG CAPSULE PO SCH ×3 (05:28→22:07)
[2018-11-23] MEDS: NICOTINE 14 MG/24 HOURS TOPICAL PATCH TD SCH (10:56)
[2018-11-23] MEDS: PRENATAL VITAMINS W/ FOLIC ACID TABLET (FP) PO SCH (10:56)
[2018-11-23] MEDS: levETIRAcetam 500 MG TABLET (FP) PO SCH ×2 (10:56→22:07)
[2018-11-23 10:58] LABS: HEMATOCRIT 34.7 % (32.4-45.2); HEMOGLOBIN 11.7 GM/dL (10.7-15.3); MCH 34.6 pg (25.7-33.7); MCHC 33.7 g/dl (32.0-36.0); MEAN CELL VOLUME 102.6 fl (80-96); MEAN PLT VOLUME 8.5 fl (7.5-11.1); PLATELET COUNT 230 K/MM3 (134-434); RBC 3.38 M/mm3 (3.60-5.2); RDW 14.4 % (11.6-15.6); WHITE BLOOD COUNT 4.2 K/mm3 (4.0-10.0)
--- NOTE | 2018-11-23 11:38 | PN ---
[facility] Progress Note Note: Patient does not want to be seen
[2018-11-23 12:15] LABS: ALBUMIN 3.4 g/dl (3.4-5.0); ALK PHOS 71 U/L (45-117); ANION GAP 5 MMOL/L (8-16); BILIRUBIN,TOTAL 0.5 mg/dL (0.2-1); BLOOD UREA NITROGEN 7 mg/dL (7-18); CALCIUM 9.6 mg/dL (8.5-10.1); CHLORIDE 100 mmol/L (98-107); CO2 31 mmol/L (21-32); CREATININE 0.6 mg/dL (0.55-1.3); GLUCOSE,RANDOM 78 mg/dL (74-106); POTASSIUM 4.1 mmol/L (3.5-5.1); SGOT/AST 57 U/L (15-37); SGPT/ALT 47 U/L (13-61); SODIUM 136 mmol/L (136-145); TOT PROT 7.7 g/dl (6.4-8.2)
--- NOTE | 2018-11-23 12:52 | PN ---
[facility] CIWA - CIWA Score Nausea/Vomitin-No Nausea/No Vomiting Muscle Tremors: 3 Anxiety: 3 Agitation: 3 Paroxysmal Sweats: 2 Orientation: 0-Oriented Tacttile Disturbances: 0-None Auditory Disturbances: 0-None Visual Disturbances: 0-None Headache: 0-None Present CIWA-Ar Total Score: 11 S Progress Note (SOAP) Subjective: sweats shakes body aches interrupted sleep low appetite Objective: 11/23/18 12:45 Vital Signs Temperature 98.1 F 11/23/18 10:53 Pulse Rate 60 11/23/18 10:53 Respiratory Rate 18 11/23/18 10:53 Blood Pressure 115/79 11/23/18 10:53 O2 Sat by Pulse Oximetry (%) Laboratory Tests 11/22/18 11/23/18 11/23/18 12:05 07:00 07:00 WBC 4.2 RBC 3.38 L Hgb 11.7 Hct 34.7 MCV 102.6 H MCH 34.6 H MCHC 33.7 RDW 14.4 Plt Count 230 D MPV 8.5 Sodium Potassium Chloride Carbon Dioxide Anion Gap BUN Creatinine Creat Clearance w eGFR Random Glucose Calcium Total Bilirubin AST ALT Alkaline Phosphatase Total Protein Albumin Urine Color Dk yellow Urine Appearance Turbid Urine pH 7.5 Ur Specific [place] 1.025 Urine Protein Trace Urine Glucose (UA) Negative Urine Ketones Trace H Urine Blood Negative Urine Nitrite Negative Urine Bilirubin 1+ H Urine Urobilinogen 4.0 e.u/dl H Ur Leukocyte Esterase 2+ H Urine WBC (Auto) 33 Urine RBC (Auto) None seen Urine Casts (Auto) 20 U Epithel Cells (Auto) 12.1 Urine Bacteria (Auto) 164.8 HIV 1&2 Antibody Screen Negative HIV P24 Antigen Negative 11/23/18 07:00 WBC RBC Hgb Hct MCV MCH MCHC RDW Plt Count MPV Sodium 136 Potassium 4.1 Chloride 100 Carbon Dioxide 31 Anion Gap 5 L BUN 7 Creatinine 0.6 Creat Clearance w eGFR 119.04 Random Glucose 78 Calcium 9.6 Total Bilirubin 0.5 AST 57 H ALT 47 Alkaline Phosphatase 71 Total Protein 7.7 Albumin 3.4 Urine Color Urine Appearance Urine pH Ur Specific [place] Urine Protein Urine Glucose (UA) Urine Ketones Urine Blood Urine Nitrite Urine Bilirubin Urine Urobilinogen Ur Leukocyte Esterase Urine WBC (Auto) Urine RBC (Auto) Urine Casts (Auto) U Epithel Cells (Auto) Urine Bacteria (Auto) HIV 1&2 Antibody Screen HIV P24 Antigen labs noted u/a with c&s ordered aaox3 ambulating no acute distress Assessment: 11/23/18 12:52 withdrawal sx pt was asked regarding her recent u/a result and if there is any s/s of urinary infection or pelvic pain. Pt is denies of any UTI s/s. Plan: continue detox increase fluids repeat u/a with c&s ordered, f/u pending results. pt advised to let RN or medical provider know if any urinary changes occur so we can provide the right course of treatment.
[2018-11-23] MEDS: hydrOXYzine PAMOATE 25 MG CAPSULE (FP) PO PRN (17:44)
[2018-11-23 20:20] LABS: PH,URINE 8.5 (5.0-8.0); URINE APPEARANCE CLOUDY; URINE BACTERIA 300.5 /hpf (NEGATIVE); URINE BILIRUBIN NEGATIVE (NEGATIVE); URINE CASTS 1 /lpf (0-8); URINE COLOR YELLOW; URINE GLUCOSE (UA) NEGATIVE (NEGATIVE); URINE KETONE NEGATIVE (NEGATIVE); URINE LEUK ESTERASE 2+ (NEGATIVE); URINE NITRITE NEGATIVE (NEGATIVE); URINE PROTEIN NEGATIVE (NEGATIVE); URINE RBC 2 /hpf (0-4); URINE UROBILINOGEN 0.2 mg/dL (0.2-1.0); URINE WBC 11 /hpf (0-5)
[2018-11-23] MEDS: THIAMINE HCL 100 MG TABLET (FP) PO SCH (22:07)
[2018-11-23] MEDS: MELATONIN 5 MG TABLETS PO PRN (22:08)
[2018-11-24] MEDS ORDERED: chlordiazePOXIDE HCL 10 MG CAPSULE PO PRN (05:00)
[2018-11-24] MEDS: chlordiazePOXIDE HCL 10 MG CAPSULE PO SCH ×3 (05:32→21:24)
[2018-11-24] MEDS: levETIRAcetam 500 MG TABLET (FP) PO SCH ×2 (10:24→21:24)
[2018-11-24] MEDS: NICOTINE 14 MG/24 HOURS TOPICAL PATCH TD SCH (10:24)
[2018-11-24] MEDS: PRENATAL VITAMINS W/ FOLIC ACID TABLET (FP) PO SCH (10:24)
--- NOTE | 2018-11-24 13:42 | PN ---
[facility] Progress Note Note: Vital Signs Temperature 96 F L 11/24/18 11:37 Pulse Rate 76 11/24/18 11:37 Respiratory Rate 16 11/24/18 11:37 Blood Pressure 122/94 11/24/18 11:37 O2 Sat by Pulse Oximetry (%) Laboratory Tests 11/22/18 11/23/18 11/23/18 12:05 07:00 07:00 WBC 4.2 RBC 3.38 L Hgb 11.7 Hct 34.7 MCV 102.6 H MCH 34.6 H MCHC 33.7 RDW 14.4 Plt Count 230 D MPV 8.5 Sodium Potassium Chloride Carbon Dioxide Anion Gap BUN Creatinine Creat Clearance w eGFR Random Glucose Calcium Total Bilirubin AST ALT Alkaline Phosphatase Total Protein Albumin Urine Color Dk yellow Urine Appearance Turbid Urine pH 7.5 Ur Specific [place] 1.025 Urine Protein Trace Urine Glucose (UA) Negative Urine Ketones Trace H Urine Blood Negative Urine Nitrite Negative Urine Bilirubin 1+ H Urine Urobilinogen 4.0 e.u/dl H Ur Leukocyte Esterase 2+ H Urine WBC (Auto) 33 Urine RBC (Auto) None seen Urine Casts (Auto) 20 U Epithel Cells (Auto) 12.1 Urine Bacteria (Auto) 164.8 HIV 1&2 Antibody Screen Negative HIV P24 Antigen Negative 11/23/18 11/23/18 07:00 17:00 WBC RBC Hgb Hct MCV MCH MCHC RDW Plt Count MPV Sodium 136 Potassium 4.1 Chloride 100 Carbon Dioxide 31 Anion Gap 5 L BUN 7 Creatinine 0.6 Creat Clearance w eGFR 119.04 Random Glucose 78 Calcium 9.6 Total Bilirubin 0.5 AST 57 H ALT 47 Alkaline Phosphatase 71 Total Protein 7.7 Albumin 3.4 Urine Color Yellow Urine Appearance Cloudy Urine pH 8.5 H Ur Specific [place] 1.009 L Urine Protein Negative Urine Glucose (UA) Negative Urine Ketones Negative Urine Blood Negative Urine Nitrite Negative Urine Bilirubin Negative Urine Urobilinogen 0.2 Ur Leukocyte Esterase 2+ H Urine WBC (Auto) 11 Urine RBC (Auto) 2 Urine Casts (Auto) 1 U Epithel Cells (Auto) 27.0 Urine Bacteria (Auto) 300.5 HIV 1&2 Antibody Screen HIV P24 Antigen c/o of interrupted sleep, back pain, body aches AOx3, no acute distress, +back pain, full ROM ambulating in the unit withdrawal sx u/a improve from previous UC results pending increase po fluids continue detox robaxin prn for back pain continue to monitor
[2018-11-24] MEDS: hydrOXYzine PAMOATE 25 MG CAPSULE (FP) PO PRN (21:25)
[2018-11-24] MEDS: THIAMINE HCL 100 MG TABLET (FP) PO SCH (21:30)
[2018-11-24 21:56] VITALS: TEMP 98.1
[2018-11-25] MEDS: chlordiazePOXIDE HCL 10 MG CAPSULE PO SCH (05:23)
[2018-11-25] MEDS: PRENATAL VITAMINS W/ FOLIC ACID TABLET (FP) PO SCH (10:07)
[2018-11-25] MEDS: levETIRAcetam 500 MG TABLET (FP) PO SCH (10:07)
[2018-11-25] MEDS: NICOTINE 14 MG/24 HOURS TOPICAL PATCH TD SCH (10:08)
[2018-11-25 10:17] VITALS: BP 108/58; PULSE 94
--- NOTE | 2018-11-25 12:15 | DS ---
[facility] Detox Discharge Summary Admission Date: 11/21/18 Discharge Date: 11/25/18 - History Present History: Alcohol Dependence Additional Comments: Clinician discussed the importance of increased 12 step participation for recovery. Pt states this morning during rounds that, she has to get her kids first from her mother. Pt is medically stable for discharge home. Pertinent Past History: H/O seizures, depression, and alcohol use disorder. - Physical Exam Results Vital Signs: Vital Signs Temperature 98.1 F 11/25/18 10:16 Pulse Rate 94 H 11/25/18 10:16 Respiratory Rate 18 11/25/18 10:16 Blood Pressure 108/58 L 11/25/18 10:16 O2 Sat by Pulse Oximetry (%) Laboratory Last Values WBC 4.2 K/mm3 (4.0-10.0) 11/23/18 07:00 RBC 3.38 M/mm3 (3.60-5.2) L 11/23/18 07:00 Hgb 11.7 GM/dL (10.7-15.3) 11/23/18 07:00 Hct 34.7 % (32.4-45.2) 11/23/18 07:00 MCV 102.6 fl (80-96) H 11/23/18 07:00 MCH 34.6 pg (25.7-33.7) H 11/23/18 07:00 MCHC 33.7 g/dl (32.0-36.0) 11/23/18 07:00 RDW 14.4 % (11.6-15.6) 11/23/18 07:00 Plt Count 230 K/MM3 (134-434) D 11/23/18 07:00 MPV 8.5 fl (7.5-11.1) 11/23/18 07:00 Sodium 136 mmol/L (136-145) 11/23/18 07:00 Potassium 4.1 mmol/L (3.5-5.1) 11/23/18 07:00 Chloride 100 mmol/L (98-107) 11/23/18 07:00 Carbon Dioxide 31 mmol/L (21-32) 11/23/18 07:00 Anion Gap 5 MMOL/L (8-16) L 11/23/18 07:00 BUN 7 mg/dL (7-18) 11/23/18 07:00 Creatinine 0.6 mg/dL (0.55-1.3) 11/23/18 07:00 Creat Clearance w eGFR 119.04 (>60) 11/23/18 07:00 Random Glucose 78 mg/dL (74-106) 11/23/18 07:00 Calcium 9.6 mg/dL (8.5-10.1) 11/23/18 07:00 Total Bilirubin 0.5 mg/dL (0.2-1) 11/23/18 07:00 AST 57 U/L (15-37) H 11/23/18 07:00 ALT 47 U/L (13-61) 11/23/18 07:00 Alkaline Phosphatase 71 U/L (45-117) 11/23/18 07:00 Total Protein 7.7 g/dl (6.4-8.2) 11/23/18 07:00 Albumin 3.4 g/dl (3.4-5.0) 11/23/18 07:00 Urine Color Yellow 11/23/18 17:00 Urine Appearance Cloudy 11/23/18 17:00 Urine pH 8.5 (5.0-8.0) H 11/23/18 17:00 Ur Specific [place] 1.009 (1.010-1.035) L 11/23/18 17:00 Urine Protein Negative (NEGATIVE) 11/23/18 17:00 Urine Glucose (UA) Negative (NEGATIVE) 11/23/18 17:00 Urine Ketones Negative (NEGATIVE) 11/23/18 17:00 Urine Blood Negative (NEGATIVE) 11/23/18 17:00 Urine Nitrite Negative (NEGATIVE) 11/23/18 17:00 Urine Bilirubin Negative (NEGATIVE) 11/23/18 17:00 Urine Urobilinogen 0.2 mg/dL (0.2-1.0) 11/23/18 17:00 Ur Leukocyte Esterase 2+ (NEGATIVE) H 11/23/18 17:00 Urine WBC (Auto) 11 /hpf (0-5) 11/23/18 17:00 Urine RBC (Auto) 2 /hpf (0-4) 11/23/18 17:00 Urine Casts (Auto) 1 /lpf (0-8) 11/23/18 17:00 U Epithel Cells (Auto) 27.0 /HPF (0-5/HPF) 11/23/18 17:00 Urine Bacteria (Auto) 300.5 /hpf (NEGATIVE) 11/23/18 17:00 HIV 1&2 Antibody Screen Negative 11/23/18 07:00 HIV P24 Antigen Negative 11/23/18 07:00 Labs reviewed Pertinent Admission Physical Exam Findings: withdrawal symptoms - Treatment Hospital Course: Detox Protocol Followed, Detoxed Safely, Responded well, Discharged Condition Good - Medication Discharge Medications: Ambulatory Orders Ibuprofen [Motrin -] 600 mg PO Q6H PRN 08/15/18 Multivit,Calc,Mins/Iron/Folic [Therapeutic-M Tablet] 1 each PO DAILY 08/15/18 Thiamine Mononitrate [Vitamin B-1] 100 mg PO DAILY 08/15/18 levETIRAcetam [Keppra -] 500 mg PO Q12H 08/15/18 Lamotrigine [Lamictal -] 100 mg PO DAILY 11/21/18 - Diagnosis (1) Alcohol dependence with uncomplicated withdrawal Status: Acute (2) Depressed affect Status: Acute (3) Seizure Status: Acute (4) Substance induced mood disorder Status: Acute - AMA Did Patient Leave Against Medical Advice: No
== END 2018-11-25 11:10 | disposition home or self-care (01) | DRG 775 ==
LOC: YASAS 19:06 → Y6N 23:50
PROVIDERS: ADMIT Surgery; ATTEND Surgery
PROC: HZ2ZZZZ Detoxification Services for Substance Abuse Treatment (ICD-10-PCS; principal; 2018-11-21)
DX: F10.230 Alcohol dependence with withdrawal, uncomplicated (principal); F12.10 Cannabis abuse, uncomplicated; F17.210 Nicotine dependence, cigarettes, uncomplicated; F32.9 Major depressive disorder, single episode, unspecified; F19.24 Other psychoactive substance dependence with psychoactive substance-induced mood disorder; G40.909 Epilepsy, unspecified, not intractable, without status epilepticus; R63.8 Other symptoms and signs concerning food and fluid intake; Z59.0 Homelessness
CPT/HCPCS: 36415; 80053; 81003; 85027; 87077; 87086; 87389

== ENCOUNTER 2019-01-26 08:34 | Inpatient (IN) | payer OTHER ==
[2019-01-26 10:30] VITALS: BMI 22.3
--- NOTE | 2019-01-26 11:24 | HP ---
CIWA Score Nausea/Vomitin-No Nausea/No Vomiting Muscle Tremors: 2 Anxiety: 0-No Anxiety, at Ease Agitation: 1-Slight > Activity Paroxysmal Sweats: No Perspiration Orientation: 0-Oriented Tacttile Disturbances: 0-None Auditory Disturbances: 0-None Visual Disturbances: 0-None Headache: 0-None Present CIWA-Ar Total Score: 3 - Admission Criteria OASAS Guidelines: Admission for Medically Managed Detox: Requires at least one of the followin. CIWA greater than 12 2. Seizures within the past 24 hours 3. Delirium tremens within the past 24 hours 4. Hallucinations within the past 24 hours 5. Acute intervention needed for co occurring medical disorder 6. Acute intervention needed for co occurring psychiatric disorder 7. Severe withdrawal that cannot be handled at a lower level of care (continued vomiting, continued diarrhea, abnormal vital signs) requiring intravenous medication and/or fluids 8. Admission ROS S - HPI Allergies/Adverse Reactions: Allergies Allergy/AdvReac Type Severity Reaction Status Date / Time No Known Allergies Allergy Verified 01/26/19 10:22 History of Present Illness: pt here requesting detox from etoh use , reports w/d seizures if not drinking , latest seizure 2 mo ago , currently on meds from [facility] . tobacco : 08/11 ppd PMHX : denies pshx : January 2019 , ages 3 & 4 w/ MGM Exam Limitations: Clinical Condition, Intoxication - Ebola screening Have you traveled outside of the country in the last 21 days: No Have you had contact with anyone from an Ebola affected area: No Do you have a fever: No - Review of Systems Constitutional: See HPI, Loss of Appetite EENT: reports: Other (reading glasses) Respiratory: reports: No Symptoms reported Cardiac: reports: No Symptoms Reported GI: reports: No Symptoms Reported : reports: No Symptoms Reported Musculoskeletal: reports: No Symptoms Reported Integumentary: reports: No Symptoms Reported Neuro: reports: See HPI, Seizure Endocrine: reports: No Symptoms Reported Psychiatric: reports: Orientated x3, Anxious Patient History - Patient Medical History Hx Anemia: No Hx Asthma: No Hx Chronic Obstructive Pulmonary Disease (COPD): No Hx Cancer: No Hx Cardiac Disorders: No Hx Congestive Heart Failure: No Hx Hypertension: No Hx Hypercholesterolemia: No Hx Pacemaker: No HX Cerebrovascular Accident: No Hx Seizures: Yes (LAST 10/24) Hx Dementia: No Hx Diabetes: No Hx Gastrointestinal Disorders: No Hx Liver Disease: No Hx Genitourinary Disorders: No Hx Sexually Transmitted Disorders: No Hx Renal Disease (ESRD): No Hx Thyroid Disease: No Hx Human Immunodeficiency Virus (HIV): No (last 08/26 negative) Hx Hepatitis C: No Hx Depression: Yes Hx Suicide Attempt: No Hx Bipolar Disorder: No Hx Schizophrenia: No - Patient Surgical History Past Surgical History: No Hx Neurologic Surgery: No Hx Cataract Extraction: No Hx Cardiac Surgery: No Hx Lung Surgery: No Hx Breast Surgery: No Hx Breast Biopsy: No Hx Abdominal Surgery: No Hx Appendectomy: No Hx Cholecystectomy: No Hx Genitourinary Surgery: No Hx Section: No Hx Orthopedic Surgery: No Anesthesia Reaction: No - PPD History Date: 08/17/18 Results: 0 mm - Reproductive History Last Menstrual Period: 11/11/18 - Smoking Cessation Smoking history: Current every day smoker Have you smoked in the past 12 months: Yes Aproximately how many cigarettes per day: 7 If you are a former smoker, when did you quit?: may 2015( 6 months gestation ) Cigars Per Day: 0 Hx Chewing Tobacco Use: No Initiated information on smoking cessation: No - Substances abused Alcohol Substance route: Oral Frequency: Daily Amount used: 1 PINT- 1LITER Age of first use: 17 Date of last use: 01/26/19 Family Disease History - Family Disease History Family History: Unable to Obtain Admission Physical Exam BHS - Vital Signs Vital Signs: Vital Signs - 24 hr 01/26/19 10:25 Temperature 97.4 F L Pulse Rate 86 Respiratory 20 Rate Blood Pressure 104/73 - Physical General Appearance: Yes: Alcohol on Breath, Intoxicated, Anxious HEENTM: Yes: EOMI, Normocephalic, Normal Voice, Lessions (lower lip midline area of edema/ raised area - pt reports fall while intoxicated several weeks ago , states went to [facility] 2 weeks ago , was given abx PCN which she claims she completed and was told no sutures as she presented too late after the fall. Pt was avised to f/up w/ plastic surgery or oral surgeon for further eval & tx and is agreeable to do so after d/c .), Other Respiratory: Yes: Lungs Clear, Normal Breath Sounds, No Respiratory Distress, No Accessory Muscle Use Neck: Yes: No masses,lesions,Nodules, Trachea in good position Cardiology: Yes: Regular Rhythm, Regular Rate, S1, S2, Tachycardia Abdominal: Yes: Non Tender, Soft Musculoskeletal: Yes: Gait Steady Extremities: Yes: Normal Range of Motion, Non-Tender Neurological: Yes: Fully Oriented, Alert, Motor Strength 5/5 Integumentary: Yes: Warm - Diagnostic (1) Alcohol dependence with uncomplicated intoxication Current Visit: Yes Status: Acute Breathalyzer - Breathalyzer Breathalyzer: 0.301 POC Urine test - Test device test lot number: [id number] Expiration date: 04/07/20 - Control test control: Yes Urine Drug Screen - Test Device Lot number: [id number] Expiration date: 10/05/20 - Control Is test valid?: Yes - Results Drug screen NEGATIVE: Yes Urine drug screen results: THC-Marijuana, BZO-Benzodiazepines Inpatient Rehab Admission - Rehab Decision to Admit Inpatient rehab admission?: No
[2019-01-26] MEDS ORDERED: MENTHOL/PHENOL 1 EACH UD MM PRN (11:29)
[2019-01-26] MEDS ORDERED: ACETAMINOPHEN 325 MG TABLET (FP) PO PRN ×2 (11:29)
[2019-01-26] MEDS ORDERED: BISMUTH SUBSALICYLATE 262 MG/15 ML BTL PO PRN (11:29)
[2019-01-26] MEDS ORDERED: MAGNESIUM CITRATE 300 ML BOTTLE PO PRN (11:29)
[2019-01-26] MEDS ORDERED: hydrOXYzine PAMOATE 25 MG CAPSULE (FP) PO PRN (11:29)
[2019-01-26] MEDS ORDERED: MAG HYDROX/AL HYDROX/SIMETH 30 ML UNIT-DOSE CUP PO PRN (11:29)
[2019-01-26] MEDS ORDERED: MAGNESIUM HYDROX 2400MG/30ML ORAL SUSPENSION 30 ML CUP PO PRN (11:29)
[2019-01-26] MEDS ORDERED: chlordiazePOXIDE HCL 25 MG CAPSULE PO PRN (11:31)
[2019-01-26] MEDS: levETIRAcetam 500 MG TABLET (FP) PO SCH ×2 (13:12→23:48)
[2019-01-26] MEDS: lamoTRIgine 100 MG TABLET (FP) PO SCH (13:12)
[2019-01-26 16:08] LABS: HEMATOCRIT 36.3 % (32.4-45.2); HEMOGLOBIN 11.9 GM/dL (10.7-15.3); MCHC 32.9 g/dl (32.0-36.0); MEAN CELL VOLUME 100.4 fl (80-96); PLATELET COUNT 351 K/MM3 (134-434); RBC 3.61 M/mm3 (3.60-5.2); RDW 14.9 % (11.6-15.6); WHITE BLOOD COUNT 3.8 K/mm3 (4.0-10.0)
[2019-01-26 16:22] LABS: BILIRUBIN,TOTAL 0.7 mg/dL (0.2-1); BLOOD UREA NITROGEN 6.7 mg/dL (7-18); CALCIUM 9.1 mg/dL (8.5-10.1); CREATININE 0.7 mg/dL (0.55-1.3); POTASSIUM 3.7 mmol/L (3.5-5.1); TOT PROT 8.9 g/dl (6.4-8.2)
[2019-01-26] MEDS: chlordiazePOXIDE HCL 25 MG CAPSULE PO SCH ×2 (17:46→22:16)
[2019-01-26] MEDS: THIAMINE HCL 100 MG TABLET (FP) PO SCH (22:16)
[2019-01-26] MEDS: MELATONIN 5 MG TABLETS PO PRN (22:18)
[2019-01-27] MEDS: chlordiazePOXIDE HCL 25 MG CAPSULE PO SCH ×4 (05:36→22:36)
[2019-01-27] MEDS: lamoTRIgine 100 MG TABLET (FP) PO SCH (10:43)
[2019-01-27] MEDS: PRENATAL VITAMINS W/ FOLIC ACID TABLET (FP) PO SCH (10:43)
--- NOTE | 2019-01-27 11:05 | PN ---
S CIWA - CIWA Score Nausea/Vomitin-No Nausea/No Vomiting Muscle Tremors: None Anxiety: 2 Agitation: 0-Normal Activity Paroxysmal Sweats: 3 Orientation: 0-Oriented Tacttile Disturbances: 0-None Auditory Disturbances: 0-None Visual Disturbances: 0-None Headache: 0-None Present CIWA-Ar Total Score: 5 BHS Progress Note (SOAP) Subjective: c/o sweats and anxiety. Objective: 01/27/19 11:05 Vital Signs 01/27/19 01/27/19 01/27/19 03:30 03:56 04:30 Temperature Pulse Rate 76 76 72 Respiratory 18 Rate Blood Pressure 01/27/19 01/27/19 01/27/19 05:00 05:30 06:00 Temperature Pulse Rate 72 70 69 Respiratory 18 18 18 Rate Blood Pressure 01/27/19 01/27/19 01/27/19 06:30 06:47 07:00 Temperature 97.7 F Pulse Rate 66 66 62 Respiratory 18 18 18 Rate Blood Pressure 105/69 01/27/19 01/27/19 01/27/19 07:30 08:00 09:57 Temperature 98.4 F Pulse Rate 60 60 88 Respiratory 18 18 18 Rate Blood Pressure 101/63 Lab Results WBC 3.8 K/mm3 (4.0-10.0) L 01/26/19 12:35 RBC 3.61 M/mm3 (3.60-5.2) 01/26/19 12:35 Hgb 11.9 GM/dL (10.7-15.3) 01/26/19 12:35 Hct 36.3 % (32.4-45.2) 01/26/19 12:35 MCV 100.4 fl (80-96) H 01/26/19 12:35 MCHC 32.9 g/dl (32.0-36.0) 01/26/19 12:35 RDW 14.9 % (11.6-15.6) 01/26/19 12:35 Plt Count 351 K/MM3 (134-434) D 01/26/19 12:35 Sodium 141 mmol/L (136-145) 01/26/19 12:35 Potassium 3.7 mmol/L (3.5-5.1) 01/26/19 12:35 Chloride 102 mmol/L (98-107) 01/26/19 12:35 Carbon Dioxide 31 mmol/L (21-32) 01/26/19 12:35 Anion Gap 8 MMOL/L (8-16) 01/26/19 12:35 BUN 6.7 mg/dL (7-18) L 01/26/19 12:35 Creatinine 0.7 mg/dL (0.55-1.3) 01/26/19 12:35 Random Glucose 91 mg/dL (74-106) 01/26/19 12:35 Calcium 9.1 mg/dL (8.5-10.1) 01/26/19 12:35 Labs noted Assessment: 01/27/19 11:05 AOX3, in no acute distress. Full rom, ambulates in the unit. withdrawal signs Plan: continue detox.
[2019-01-27] MEDS: THIAMINE HCL 100 MG TABLET (FP) PO SCH (22:36)
[2019-01-27] MEDS: levETIRAcetam 500 MG TABLET (FP) PO SCH (22:36)
[2019-01-28] MEDS: chlordiazePOXIDE HCL 25 MG CAPSULE PO SCH ×2 (05:47→10:20)
[2019-01-28] MEDS: IBUPROFEN 400 MG TABLET (FP) PO PRN ×2 (05:49→12:34)
[2019-01-28] MEDS: levETIRAcetam 500 MG TABLET (FP) PO SCH ×2 (10:20→22:46)
[2019-01-28] MEDS: lamoTRIgine 100 MG TABLET (FP) PO SCH (10:20)
[2019-01-28] MEDS: PRENATAL VITAMINS W/ FOLIC ACID TABLET (FP) PO SCH (10:20)
--- NOTE | 2019-01-28 10:31 | PN ---
S CIWA - CIWA Score Nausea/Vomitin-Mild Nausea/No Vomiting Muscle Tremors: 2 Anxiety: 3 Agitation: 2 Paroxysmal Sweats: No Perspiration Orientation: 0-Oriented Tacttile Disturbances: 0-None Auditory Disturbances: 0-None Visual Disturbances: 0-None Headache: 1-Very Mild CIWA-Ar Total Score: 9 BHS Progress Note (SOAP) Subjective: this am co poor sleep, shakiness, and anxiety Objective: 01/28/19 10:30 Laboratory Tests 01/26/19 01/26/19 01/26/19 10:46 12:35 12:35 WBC 3.8 L RBC 3.61 Hgb 11.9 Hct 36.3 MCV 100.4 H MCH 33.0 MCHC 32.9 RDW 14.9 Plt Count 351 D MPV 7.0 L D Sodium 141 Potassium 3.7 Chloride 102 Carbon Dioxide 31 Anion Gap 8 BUN 6.7 L Creatinine 0.7 Est GFR (CKD-EPI)AfAm 136.66 Est GFR (CKD-EPI)NonAf 117.91 Random Glucose 91 Calcium 9.1 Total Bilirubin 0.7 AST 47 H ALT 36 Alkaline Phosphatase 73 Total Protein 8.9 H Albumin 4.0 POC Urine HCG, Qual Negative RPR Titer HIV 1&2 Antibody Screen HIV P24 Antigen 01/26/19 01/26/19 12:35 12:35 WBC RBC Hgb Hct MCV MCH MCHC RDW Plt Count MPV Sodium Potassium Chloride Carbon Dioxide Anion Gap BUN Creatinine Est GFR (CKD-EPI)AfAm Est GFR (CKD-EPI)NonAf Random Glucose Calcium Total Bilirubin AST ALT Alkaline Phosphatase Total Protein Albumin POC Urine HCG, Qual RPR Titer Nonreactive HIV 1&2 Antibody Screen Negative HIV P24 Antigen Negative Vital Signs - 24 hr 01/27/19 01/27/19 01/27/19 11:00 11:30 12:00 Temperature Pulse Rate 86 82 80 Respiratory 18 18 18 Rate Blood Pressure 01/27/19 01/27/19 01/28/19 18:00 22:47 00:30 Temperature 97.9 F 97.8 F Pulse Rate 64 60 Respiratory 16 17 18 Rate Blood Pressure 101/70 114/75 01/28/19 01/28/19 01/28/19 03:30 06:44 09:30 Temperature 97 F L 99 F Pulse Rate 71 82 Respiratory 18 18 20 Rate Blood Pressure 103/76 122/87 Assessment: 01/28/19 10:31 ongoing withdrawal Plan: continue detox protocol psych eval for continuationof standing regimen
--- NOTE | 2019-01-28 12:37 | CONSULT ---
[facility] Psychiatric Consult - Data Date of interview: 01/28/19 Admission source: Self-referred Identifying data: 28 y/o AA female , mother of 2, domiciled, unemployed, on welfare Substance Abuse History: Here for detox of alcohol. Patient drink vodka several times. week, she reports no history pof black out spelss but seizure disorder and withdrawal symptoms. Most recent reported seizure was in October. Refer to addiction counselor summary for more detailed alcohol use disorder Medical History: Patient medical and surgical history are unremarkable Psychiatric History: She started out patient mental health care treatment at a community clinic in [facility] in [place] in August 2018, she is treated with an antidepressant medication, patient does not recall medication name or dosage dosage. She complains of insomnia, fatigue, denies appetite disturbances. No suicidal or homicidal ideation Physical/Sexual Abuse/Trauma History: Denied Additional Comment: Past history pf incarceration for violation of probation Mental Status Exam - Mental Status Exam Alert and Oriented to: Time, Place, Person Cognitive Function: Fair Patient Appearance: Well Groomed Mood: Sad Affect: Appropriate Patient Behavior: Cooperative Speech Pattern: Clear Voice Loudness: Normal, Moderately Soft/Quiet Thought Process: Intact Thought Disorder: Not Present Hallucinations: None Suicidal Ideation: None Homicidal Ideation: None Insight/Judgement: Poor Sleep: Poorly Appetite: Fair Muscle strength/Tone: Normal Gait/Station: Normal Psychiatric Findings - Problem List ([place] 1, 2,3) (1) Depression Current Visit: Yes Status: Acute (2) Alcohol dependence with uncomplicated withdrawal Current Visit: No Status: Acute (3) Seizure Current Visit: No Status: Acute - Initial Treatment Plan Initial Treatment Plan: Continue Detox treatment. Contact patient out patient clinic to obtain information regarding her treatment for depression. Monotor response
[2019-01-28] MEDS ORDERED: chlordiazePOXIDE HCL 10 MG CAPSULE PO PRN (17:00)
[2019-01-28] MEDS: chlordiazePOXIDE HCL 10 MG CAPSULE PO SCH ×2 (17:45→22:46)
[2019-01-28] MEDS: THIAMINE HCL 100 MG TABLET (FP) PO SCH (22:46)
[2019-01-28] MEDS: MELATONIN 5 MG TABLETS PO PRN (22:46)
[2019-01-29] MEDS: chlordiazePOXIDE HCL 10 MG CAPSULE PO SCH ×2 (06:00→11:49)
[2019-01-29 06:29] VITALS: BP 100/69; PULSE 71; TEMP 97.8
[2019-01-29] MEDS: PRENATAL VITAMINS W/ FOLIC ACID TABLET (FP) PO SCH (11:49)
[2019-01-29] MEDS: levETIRAcetam 500 MG TABLET (FP) PO SCH (11:49)
[2019-01-29] MEDS: lamoTRIgine 100 MG TABLET (FP) PO SCH (11:49)
[2019-01-29] MEDS ORDERED: chlordiazePOXIDE HCL 10 MG CAPSULE PO SCH (17:00)
--- NOTE | 2019-01-29 18:30 | DS ---
[facility] Detox Discharge Summary Admission Date: 01/26/19 Discharge Date: 01/29/19 - History Present History: Alcohol Dependence Additional Comments: PATIENT DID NOT WISH TO REMAIN TO COMPLETE DETOX REGIMEN. PATIENT DID NOT WISH TO WAIT AND ELECTED TO LEAVE DETOX UNIT PRIOR TO TIME OF ARRIVAL OF FEATHER BALER ONTO DETOX UNIT. THUS, MEDICAL ASSESSMENT COULD BNOT BE DONE PRIOR TO PATIENT LEAVING DETOX UNIT. Pertinent Past History: History of Seizures, Depression, - Physical Exam Results Vital Signs: Vital Signs Temperature 97.8 F 01/29/19 06:28 Pulse Rate 71 01/29/19 06:28 Respiratory Rate 18 01/29/19 06:30 Blood Pressure 100/69 01/29/19 06:28 O2 Sat by Pulse Oximetry (%) Pertinent Admission Physical Exam Findings: WITHDRAWAL SYMPTOMS. Laboratory Tests 01/26/19 01/26/19 01/26/19 10:46 12:35 12:35 WBC 3.8 L RBC 3.61 Hgb 11.9 Hct 36.3 MCV 100.4 H MCH 33.0 MCHC 32.9 RDW 14.9 Plt Count 351 D MPV 7.0 L D Sodium 141 Potassium 3.7 Chloride 102 Carbon Dioxide 31 Anion Gap 8 BUN 6.7 L Creatinine 0.7 Est GFR (CKD-EPI)AfAm 136.66 Est GFR (CKD-EPI)NonAf 117.91 Random Glucose 91 Calcium 9.1 Total Bilirubin 0.7 AST 47 H ALT 36 Alkaline Phosphatase 73 Total Protein 8.9 H Albumin 4.0 POC Urine HCG, Qual Negative RPR Titer HIV 1&2 Antibody Screen HIV P24 Antigen 01/26/19 01/26/19 12:35 12:35 WBC RBC Hgb Hct MCV MCH MCHC RDW Plt Count MPV Sodium Potassium Chloride Carbon Dioxide Anion Gap BUN Creatinine Est GFR (CKD-EPI)AfAm Est GFR (CKD-EPI)NonAf Random Glucose Calcium Total Bilirubin AST ALT Alkaline Phosphatase Total Protein Albumin POC Urine HCG, Qual RPR Titer Nonreactive HIV 1&2 Antibody Screen Negative HIV P24 Antigen Negative LABS NOTED. - Treatment Hospital Course: Detox Protocol Followed, Detoxed Safely - Medication Discharge Medications: Ambulatory Orders levETIRAcetam [Keppra -] 500 mg PO Q12H 08/15/18 Lamotrigine [Lamictal -] 100 mg PO DAILY 11/21/18 - Diagnosis (1) Alcohol dependence with uncomplicated withdrawal Status: Acute (2) Alcohol dependence with uncomplicated intoxication Status: Acute (3) Depression Status: Acute Qualifiers: Depression Type: unspecified Qualified Code(s): F32.9 - Major depressive disorder, single episode, unspecified (4) Seizure Status: Acute - AMA Did Patient Leave Against Medical Advice: Yes (PATIENT DID NOT WISH TO REMAIN TO COMPLETE DETOX REGIMEN.)
== END 2019-01-29 08:42 | disposition left against medical advice (07) | DRG 770 ==
LOC: YASAS 08:34 → Y3N 11:51
PROVIDERS: ADMIT Surgery; ATTEND Surgery
PROC: HZ2ZZZZ Detoxification Services for Substance Abuse Treatment (ICD-10-PCS; principal; 2019-01-26)
DX: F10.230 Alcohol dependence with withdrawal, uncomplicated (principal); F10.220 Alcohol dependence with intoxication, uncomplicated; F13.10 Sedative, hypnotic or anxiolytic abuse, uncomplicated; F12.10 Cannabis abuse, uncomplicated; F17.210 Nicotine dependence, cigarettes, uncomplicated; F32.9 Major depressive disorder, single episode, unspecified; G40.509 Epileptic seizures related to external causes, not intractable, without status epilepticus
CPT/HCPCS: 36415; 80053; 81025; 85027; 86593; 87389

== ENCOUNTER 2019-02-15 00:11 | Emergency (ER) | payer OTHER ==
--- NOTE | 2019-02-15 00:28 | PDOC ---
Medical Decision Making - Medical Decision Making 02/15/19 00:28 Patient seen by the advanced practice provider under my direct supervision. Ancillary testing reviewed as necessary. I agree with plan as outlined by the advanced practice provider. *DC/Admit/Observation/Transfer Diagnosis at time of Disposition: Alcoholism /alcohol abuse - Referrals - Patient Instructions - Post Discharge Activity
[2019-02-15 00:48] VITALS: BP 111/73; PULSE 79; TEMP 98.2; BMI 22.3
--- NOTE | 2019-02-15 01:17 | PDOC ---
History of Present Illness - General Chief Complaint: Alcohol intoxication Stated Complaint: INTOX Time Seen by Provider: 02/15/19 00:23 History Source: Patient Exam Limitations: No Limitations Past History - Past Medical History Allergies/Adverse Reactions: Allergies Allergy/AdvReac Type Severity Reaction Status Date / Time No Known Allergies Allergy Verified 02/14/19 14:49 Home Medications: Ambulatory Orders levETIRAcetam [Keppra -] 500 mg PO Q12H 08/15/18 Lamotrigine [Lamictal -] 100 mg PO DAILY 11/21/18 Multivit-Min/FA/Lycopen/Lutein [Centrum Silver Tablet] 1 each PO DAILY 02/14/19 Thiamine HCl [B-1] 100 mg PO DAILY 02/14/19 Anemia: No Asthma: No Cancer: No Cardiac Disorders: No CVA: No COPD: No CHF: No Dementia: No Diabetes: No GI Disorders: No Disorders: No HTN: No Hypercholesterolemia: No Kidney Stones: No Liver Disease: No Seizures: Yes (LAST 10/24) Thyroid Disease: No - Surgical History Abdominal Surgery: No Appendectomy: No Cardiac Surgery: No Cholecystectomy: No Lung Surgery: No Neurologic Surgery: No Orthopedic Surgery: No - Reproductive History PID: No - Immunization History Immunization Up to Date: No - Suicide/Smoking/Psychosocial Hx Smoking Status: No Smoking History: Never smoked Have you smoked in the past 12 months: Yes Number of Cigarettes Smoked Daily: 7 If you are a former smoker, when did you quit?: may 2015( 6 months gestation ) Cigars Per Day: 0 'Breaking Loose' booklet given: 11/21/18 Hx Alcohol Use: Yes Drug/Substance Use Hx: Yes Substance Use Type: Alcohol Hx Substance Use Treatment: Yes *Physical Exam - Vital Signs Last Vital Signs Temp Pulse Resp BP Pulse Ox 98.2 F 79 17 111/73 98 02/15/19 00:44 02/15/19 00:44 02/15/19 00:44 02/15/19 00:44 02/15/19 00:44 - Physical Exam General Appearance: Yes: Alcohol on Breath. No: Apparent Distress HEENT: positive: Other (no tongue fasciculations, no hand tremors) Respiratory/Chest: positive: Lungs Clear, Normal Breath Sounds. negative: Respiratory Distress Cardiovascular: positive: Regular Rhythm, Regular Rate, S1, S2. negative: Murmur Gastrointestinal/Abdominal: positive: Normal Bowel Sounds, Soft. negative: Tender, Distended, Guarding, Rebound Extremity: positive: Other (old R knee skin tear (from 2 weeks ago)) Neurologic: positive: Fully Oriented, Alert, Normal Mood/Affect Medical Decision Making - Medical Decision Making 28 y/o F hx of alcohol dependence, seizures (Keppra) BIBEMS for alcohol intox. Patient was seen at [facility] for detox but there was no bed available; patient stated she would return in morning. Patient was found sleeping in park when bystanders called EMS. Last drink was few hours ago. Denies drug use. Denies sob , cp, abd pain, n/v, headache Patient clinically sober, steady gait noted in ED No concern for trauma No evidence of withdrawal Stable for dc 02/15/19 01:14 *DC/Admit/Observation/Transfer Diagnosis at time of Disposition: Alcoholism /alcohol abuse - Discharge Dispostion Disposition: HOME Condition at time of disposition: Stable Decision to Admit order: No - Referrals - Patient Instructions Printed Discharge Instructions: DI for Alcohol Abuse - Post Discharge Activity
== END 2019-02-15 01:38 | disposition home or self-care (01) ==
LOC: JER 00:11
DX: F10.220 Alcohol dependence with intoxication, uncomplicated (principal); G40.909 Epilepsy, unspecified, not intractable, without status epilepticus
CPT/HCPCS: 99282-25

== ENCOUNTER 2021-02-03 19:23 | Emergency (ER) | payer OTHER ==
[2021-02-03 19:31] VITALS: BP 109/64; PULSE 103; TEMP 98.3; BMI 22.3
[2021-02-03] MEDS ORDERED: KETOROLAC TROMETHAMINE 60 MG/2 ML VIAL IM ONE (21:05)
[2021-02-03] MEDS ORDERED: LIDOCAINE 5% TOPICAL PATCH TP ONE (21:05)
[2021-02-03] MEDS ORDERED: LIDOCAINE 5% TOPICAL PATCH ONE (21:37)
[2021-02-03] MEDS ORDERED: KETOROLAC TROMETHAMINE 30 MG/1 ML VIAL ONE (21:38)
[2021-02-03] MEDS ORDERED: LIDOCAINE PATCH REMOVAL MC ONE (22:00)
== END 2021-02-04 10:52 | disposition home or self-care (01) ==
LOC: JERFT 19:23
PROC: 3E0233Z Introduction of Anti-inflammatory into Muscle, Percutaneous Approach (ICD-10-PCS; principal; 2021-02-03)
DX: M62.830 Muscle spasm of back (principal); M25.562 Pain in left knee
CPT/HCPCS: 72100-TC-FY; 73030-TC-LT-FY; 73560-TC-LT-FY; 99285-25

== ENCOUNTER 2021-02-15 04:09 | Emergency (ER) | payer OTHER ==
[2021-02-15 05:15] VITALS: BP 93/60; PULSE 72; TEMP 97.4; BMI 21.6
[2021-02-15] MEDS ORDERED: levETIRAcetam 500 MG TABLET (FP) PO ONE ×2 (07:00→07:12)
[2021-02-15] MEDS ORDERED: IBUPROFEN 600 MG TABLET (FP) PO ONE ×2 (08:46→08:57)
== END 2021-02-15 09:00 | disposition home or self-care (01) ==
LOC: JER 04:09
DX: F10.129 Alcohol abuse with intoxication, unspecified (principal)
CPT/HCPCS: 99283-25

== ENCOUNTER 2021-02-27 22:10 | Emergency (ER) | payer OTHER ==
[2021-02-27 22:25] VITALS: BP 103/70; PULSE 87; TEMP 97.9; BMI 22.3
[2021-02-28 00:21] LABS: BASO % 0.7 % (0-2.0); EOS % 1.7 % (0-4.5); HEMATOCRIT 37.7 % (32.4-45.2); HEMOGLOBIN 12.7 GM/dL (10.7-15.3); LYMPH % 44.4 % (8-40); MCH 35.1 pg (25.7-33.7); MCHC 33.7 g/dl (32.0-36.0); MEAN CELL VOLUME 104.3 fl (80-96); MEAN PLT VOLUME 7.7 fl (7.5-11.1); MONO % 8.4 % (3.8-10.2); NEUT % 44.8 % (42.8-82.8); PLATELET COUNT 320 10^3/uL (134-434); RBC 3.62 M/mm3 (3.60-5.2); RDW 13.2 % (11.6-15.6); WHITE BLOOD COUNT 5.3 K/mm3 (4.0-10.0)
[2021-02-28 00:27] LABS: ALBUMIN 4.1 g/dl (3.4-5.0); CALCIUM 9.4 mg/dL (8.5-10.1)
[2021-02-28 00:28] LABS: BLOOD UREA NITROGEN 8.8 mg/dL (7-18)
[2021-02-28 00:31] LABS: CREATININE 0.8 mg/dL (0.55-1.3)
[2021-02-28 00:32] LABS: BILIRUBIN,TOTAL 0.3 mg/dL (0.2-1); TOT PROT 9.1 g/dl (6.4-8.2)
[2021-02-28] MEDS ORDERED: GENTAMICIN SULFATE 0.3% OPHTHALMIC (EYE DROPS) 5ML BOTTLE OS ONE (02:54)
[2021-02-28] MEDS ORDERED: GENTAMICIN SULFATE 0.3% OPHTHALMIC (EYE DROPS) 5ML BOTTLE ONE (03:01)
[2021-02-28 03:32] LABS: URINE BARBITURATES NEGATIVE (NEGATIVE)
[2021-02-28 03:33] LABS: COCAINE, UR NEGATIVE (NEGATIVE); OPIATES, URI NEGATIVE (NEGATIVE); PHENCYCLIDINE,URINE NEGATIVE (NEGATIVE)
[2021-02-28 03:38] LABS: METHADONE, UR NEGATIVE (NEGATIVE); URINE AMPHETAMINES NEGATIVE (NEGATIVE); URINE BENZODIAZEPINES POSITIVE (NEGATIVE)
== END 2021-02-28 03:00 | disposition home or self-care (01) ==
LOC: JER 22:10
DX: F10.920 Alcohol use, unspecified with intoxication, uncomplicated (principal)
CPT/HCPCS: 36415; 70450-TC; 80053; 80307; 84703; 85025; 99284-25

== ENCOUNTER 2021-02-28 03:35 | Emergency (ER) | payer OTHER ==
[2021-02-28 03:40] VITALS: BP 114/86; PULSE 74; TEMP 98.9; BMI 27.4
== END 2021-02-28 06:57 | disposition short-term general hospital (02) ==
LOC: JER 03:35
DX: F10.220 Alcohol dependence with intoxication, uncomplicated (principal); R11.0 Nausea
CPT/HCPCS: 70450-TC; 99284-25

== ENCOUNTER 2021-03-11 01:18 | Emergency (ER) | payer OTHER ==
[2021-03-11 01:35] VITALS: BP 105/74; PULSE 84; TEMP 98.1; BMI 22.3
[2021-03-11 07:33] LABS: COCAINE, UR NEGATIVE (NEGATIVE); URINE AMPHETAMINES NEGATIVE (NEGATIVE)
[2021-03-11 07:34] LABS: OPIATES, URI NEGATIVE (NEGATIVE); PHENCYCLIDINE,URINE NEGATIVE (NEGATIVE)
[2021-03-11 07:35] LABS: METHADONE, UR NEGATIVE (NEGATIVE); URINE BARBITURATES NEGATIVE (NEGATIVE); URINE BENZODIAZEPINES POSITIVE (NEGATIVE)
== END 2021-03-11 07:16 | disposition home or self-care (01) ==
LOC: JER 01:18
DX: F10.920 Alcohol use, unspecified with intoxication, uncomplicated (principal)
CPT/HCPCS: 70450-TC; 80307; 82962; 99284-25

== ENCOUNTER 2022-08-30 14:28 | Inpatient (IN) | payer OTHER ==
[2022-08-30 15:04] VITALS: BMI 22.3
[2022-08-30] MEDS ORDERED: FOLIC ACID INJECTION - 1 MG, THIAMINE HCL 100 MG, MULTIVIT INJECTION ADULT 10 ML in SOD... IVPB ONE (16:02)
[2022-08-30 16:30] LABS: BASO % 0.9 % (0-2.0); EOS % 2.5 % (0-4.5); HEMATOCRIT 38.9 % (32.4-45.2); HEMOGLOBIN 12.6 GM/dL (10.7-15.3); LYMPH % 36.5 % (8-40); MCH 32.4 pg (25.7-33.7); MCHC 32.5 g/dl (32.0-36.0); MEAN CELL VOLUME 99.9 fl (80-96); MEAN PLT VOLUME 7.2 fl (7.5-11.1); MONO % 6.3 % (3.8-10.2); NEUT % 53.8 % (42.8-82.8); PLATELET COUNT 310 10^3/uL (134-434); RBC 3.89 M/mm3 (3.60-5.2); RDW 13.3 % (11.6-15.6); WHITE BLOOD COUNT 4.1 K/mm3 (4.0-10.0)
[2022-08-30 16:39] LABS: CHLORIDE 105 mmol/L (98-107); SODIUM 145 mmol/L (136-145)
[2022-08-30 16:41] LABS: ANION GAP 12 MMOL/L (8-16); BLOOD UREA NITROGEN 6.5 mg/dL (7-18); CO2 28 mmol/L (21-32)
[2022-08-30 16:42] LABS: ALBUMIN 3.6 g/dl (3.4-5.0); GLUCOSE,RANDOM 89 mg/dL (74-106)
[2022-08-30 16:45] LABS: CREATININE 0.5 mg/dL (0.55-1.3); SGOT/AST 68 U/L (15-37); SGPT/ALT 38 U/L (13-61)
[2022-08-30 16:46] LABS: BILIRUBIN,TOTAL 0.4 mg/dL (0.2-1); TOT PROT 8.7 g/dl (6.4-8.2)
[2022-08-30 16:47] LABS: ALK PHOS 78 U/L (45-117)
[2022-08-31] MEDS ORDERED: diazePAM 5 MG TABLET PO PRN (02:11)
[2022-08-31] MEDS: diazePAM 5 MG TABLET PO SCH ×4 (02:30→19:42)
[2022-08-31] MEDS: levETIRAcetam 500 MG TABLET (FP) PO SCH ×3 (02:40→21:20)
[2022-08-31] MEDS: THIAMINE HCL 200 MG/2 ML VIAL IVPB SCH ×3 (02:52→14:37)
[2022-08-31 03:18] LABS: URINE APPEARANCE CLOUDY; URINE BILIRUBIN NEGATIVE (NEGATIVE); URINE COLOR YELLOW; URINE GLUCOSE (UA) NEGATIVE (NEGATIVE); URINE KETONE NEGATIVE (NEGATIVE); URINE LEUK ESTERASE TRACE (NEGATIVE); URINE NITRITE NEGATIVE (NEGATIVE); URINE PROTEIN 1+ (NEGATIVE)
[2022-08-31] MEDS: LORazepam 1 MG TABLET PO PRN ×2 (08:53→19:42)
[2022-08-31 09:07] LABS: BASO % 0.6 % (0-2.0); EOS % 1.9 % (0-4.5); HEMATOCRIT 32.5 % (32.4-45.2); HEMOGLOBIN 10.8 GM/dL (10.7-15.3); LYMPH % 28.9 % (8-40); MCH 33.1 pg (25.7-33.7); MCHC 33.1 g/dl (32.0-36.0); MEAN CELL VOLUME 99.8 fl (80-96); MEAN PLT VOLUME 7.9 fl (7.5-11.1); NEUT % 61.6 % (42.8-82.8); PLATELET COUNT 236 10^3/uL (134-434); RBC 3.26 M/mm3 (3.60-5.2); RDW 13.6 % (11.6-15.6); WHITE BLOOD COUNT 5.2 K/mm3 (4.0-10.0)
[2022-08-31 09:15] LABS: URINE AMPHETAMINES NEGATIVE (NEGATIVE)
[2022-08-31 09:16] LABS: COCAINE, UR NEGATIVE (NEGATIVE); METHADONE, UR NEGATIVE (NEGATIVE); OPIATES, URI NEGATIVE (NEGATIVE); PHENCYCLIDINE,URINE NEGATIVE (NEGATIVE); URINE BARBITURATES NEGATIVE (NEGATIVE); URINE BENZODIAZEPINES POSITIVE (NEGATIVE)
[2022-08-31 09:23] LABS: CHLORIDE 97 mmol/L (98-107); SODIUM 136 mmol/L (136-145)
[2022-08-31 09:27] LABS: ALBUMIN 3.2 g/dl (3.4-5.0); ANION GAP 12 MMOL/L (8-16); BLOOD UREA NITROGEN 4.4 mg/dL (7-18); CALCIUM 8.6 mg/dL (8.5-10.1); CO2 27 mmol/L (21-32); GLUCOSE,RANDOM 112 mg/dL (74-106)
[2022-08-31 09:30] LABS: CREATININE 0.7 mg/dL (0.55-1.3); SGOT/AST 51 U/L (15-37); SGPT/ALT 30 U/L (13-61)
[2022-08-31 09:31] LABS: TOT PROT 7.6 g/dl (6.4-8.2)
[2022-08-31 09:32] LABS: ALK PHOS 59 U/L (45-117)
[2022-08-31] MEDS ORDERED: POTASSIUM CHLORIDE TABS 20 MEQ TABLET.ER (FP) PO ONE (09:48)
[2022-08-31 09:57] LABS: MAGNESIUM 0.9 mg/dL (1.8-2.4)
[2022-08-31] MEDS: ENOXAPARIN NA (PORCINE) 40 MG/0.4 ML DISP.SYRIN SQ SCH (09:59)
[2022-08-31] MEDS: FOLIC ACID 1 MG TABLET (FP) PO SCH (09:59)
[2022-08-31] MEDS ORDERED: MAGNESIUM SULF 50% (8.12 MEQ/2 ML-1 GM VIAL) IVPB ONE ×3 (13:28→19:33)
[2022-08-31] MEDS ORDERED: levETIRAcetam 500 MG TABLET (FP) PO SCH (13:30)
[2022-08-31 18:00] LABS: CHLORIDE 98 mmol/L (98-107); SODIUM 135 mmol/L (136-145)
[2022-08-31 18:02] LABS: CALCIUM 9.1 mg/dL (8.5-10.1)
[2022-08-31 18:03] LABS: ANION GAP 8 MMOL/L (8-16); CO2 29 mmol/L (21-32); GLUCOSE,RANDOM 105 mg/dL (74-106); MAGNESIUM 1.7 mg/dL (1.8-2.4)
[2022-08-31 18:06] LABS: CREATININE 0.6 mg/dL (0.55-1.3)
[2022-08-31] MEDS: LACTATED RINGERS SOLUTION 1,000 ML/1,000 ML INFUS.BAG IV SCH (18:07)
[2022-08-31 18:13] LABS: BLOOD UREA NITROGEN 2.4 mg/dL (7-18)
[2022-09-01] MEDS ORDERED: diazePAM 5 MG TABLET PO SCH (06:00)
[2022-09-01 10:01] LABS: CALCIUM 9.5 mg/dL (8.5-10.1)
[2022-09-01 10:02] LABS: BLOOD UREA NITROGEN 3.1 mg/dL (7-18); MAGNESIUM 1.8 mg/dL (1.8-2.4)
[2022-09-01 10:05] LABS: CREATININE 0.6 mg/dL (0.55-1.3)
[2022-09-01] MEDS: levETIRAcetam 500 MG TABLET (FP) PO SCH ×2 (10:20→21:38)
[2022-09-01] MEDS: ENOXAPARIN NA (PORCINE) 40 MG/0.4 ML DISP.SYRIN SQ SCH (10:21)
[2022-09-01] MEDS: FOLIC ACID 1 MG TABLET (FP) PO SCH (10:21)
[2022-09-01] MEDS ORDERED: THIAMINE HCL 200 MG/2 ML VIAL IVPB SCH (15:15)
[2022-09-01] MEDS: LACTATED RINGERS SOLUTION 1,000 ML/1,000 ML INFUS.BAG IV SCH (17:02)
[2022-09-02] MEDS ORDERED: diazePAM 5 MG TABLET PO SCH (06:00)
[2022-09-02] MEDS: LACTATED RINGERS SOLUTION 1,000 ML/1,000 ML INFUS.BAG IV SCH (07:02)
[2022-09-02] MEDS ORDERED: THIAMINE HCL 200 MG/2 ML VIAL IVPB SCH (10:00)
[2022-09-02] MEDS: THIAMINE HCL 100 MG TABLET (FP) PO SCH (10:23)
[2022-09-02] MEDS: ENOXAPARIN NA (PORCINE) 40 MG/0.4 ML DISP.SYRIN SQ SCH (10:23)
[2022-09-02] MEDS: FOLIC ACID 1 MG TABLET (FP) PO SCH (10:23)
[2022-09-02] MEDS: levETIRAcetam 500 MG TABLET (FP) PO SCH ×2 (10:23→21:39)
[2022-09-02 10:53] VITALS: RESP 18
[2022-09-02 13:04] LABS: BLOOD UREA NITROGEN 4.5 mg/dL (7-18); CALCIUM 9.8 mg/dL (8.5-10.1); MAGNESIUM 1.4 mg/dL (1.8-2.4)
[2022-09-02 13:08] LABS: CREATININE 0.6 mg/dL (0.55-1.3); PHOSPHOROUS 3.7 mg/dL (2.5-4.9)
[2022-09-02] MEDS ORDERED: MAGNESIUM SULF 50% (8.12 MEQ/2 ML-1 GM VIAL) IVPB ONE (13:36)
[2022-09-03] MEDS ORDERED: diazePAM 5 MG TABLET PO ONE (06:00)
[2022-09-03 09:36] LABS: CALCIUM 9.7 mg/dL (8.5-10.1)
[2022-09-03 09:37] LABS: BLOOD UREA NITROGEN 7.5 mg/dL (7-18); MAGNESIUM 1.8 mg/dL (1.8-2.4)
[2022-09-03 09:40] LABS: CREATININE 0.5 mg/dL (0.55-1.3); PHOSPHOROUS 4.4 mg/dL (2.5-4.9)
[2022-09-03] MEDS: levETIRAcetam 500 MG TABLET (FP) PO SCH (10:33)
[2022-09-03] MEDS: THIAMINE HCL 100 MG TABLET (FP) PO SCH (10:33)
[2022-09-03] MEDS: FOLIC ACID 1 MG TABLET (FP) PO SCH (10:33)
[2022-09-03] MEDS: ENOXAPARIN NA (PORCINE) 40 MG/0.4 ML DISP.SYRIN SQ SCH (10:33)
[2022-09-03 14:47] VITALS: BP 117/67; PULSE 86; TEMP 98.1
== END 2022-09-03 16:35 | disposition other institution (70) | DRG 775 ==
LOC: JER 14:28 → JERBED 23:24 → OBSVTOIN 08-31 02:22 → J6S 08-31 03:22
PROVIDERS: ADMIT Internal Medicine; ATTEND Internal Medicine
PROC: HZ2ZZZZ Detoxification Services for Substance Abuse Treatment (ICD-10-PCS; principal; 2022-08-30)
DX: F10.239 Alcohol dependence with withdrawal, unspecified (principal); M21.331 Wrist drop, right wrist; K02.9 Dental caries, unspecified; E83.42 Hypomagnesemia; R26.81 Unsteadiness on feet; G40.909 Epilepsy, unspecified, not intractable, without status epilepticus; S02.2XXA Fracture of nasal bones, initial encounter for closed fracture; G56.31 Lesion of radial nerve, right upper limb; M27.40 Unspecified cyst of jaw; W18.30XA Fall on same level, unspecified, initial encounter; Y92.098 Other place in other non-institutional residence as the place of occurrence of the external cause
CPT/HCPCS: 0241U-QW; 36415; 70450-TC; 70486-TC; 70491-TC; 70551-TC; 71045-TC-FY; 71260-TC; 72125-TC; 72141-TC; 73070-TC-RT-FY; 73130-TC-RT-FY; 73200-TC-RT; 80048; 80053; 80177; 80307; 81003; 82607; 82746; 83735; 84100; 84484; 84702; 84703; 85025; 87086; 93005; 93010; 97116-GP; 97162-GP; 99285-25; G0378; Q9967

== ENCOUNTER 2022-10-09 11:09 | Inpatient (IN) | payer OTHER ==
[2022-10-09] MEDS ORDERED: levETIRAcetam 500 MG TABLET (FP) PO ONE ×2 (14:50→14:56)
[2022-10-09 18:44] LABS: BASO % 0.8 % (0-2.0); EOS % 1.1 % (0-4.5); HEMATOCRIT 36.5 % (32.4-45.2); HEMOGLOBIN 11.9 GM/dL (10.7-15.3); LYMPH % 41.6 % (8-40); MCH 31.5 pg (25.7-33.7); MCHC 32.5 g/dl (32.0-36.0); MEAN CELL VOLUME 96.8 fl (80-96); MONO % 5.5 % (3.8-10.2); PLATELET COUNT 379 10^3/uL (134-434); RBC 3.77 M/mm3 (3.60-5.2); RDW 14.5 % (11.6-15.6); WHITE BLOOD COUNT 4.9 K/mm3 (4.0-10.0)
[2022-10-09 19:06] LABS: ALBUMIN 3.4 g/dl (3.4-5.0); BLOOD UREA NITROGEN 10.2 mg/dL (7-18)
[2022-10-09 19:09] LABS: CREATININE 0.6 mg/dL (0.55-1.3)
[2022-10-09 19:10] LABS: BILIRUBIN,TOTAL 0.7 mg/dL (0.2-1)
[2022-10-09 19:11] LABS: TOT PROT 8.2 g/dl (6.4-8.2)
[2022-10-09] MEDS ORDERED: THIAMINE HCL 200 MG/2 ML VIAL IVPB ONE (20:26)
[2022-10-09] MEDS ORDERED: FOLIC ACID 5 MG/1 ML SQ ONE (20:27)
[2022-10-09] MEDS ORDERED: MULTIVIT INJ. ADULT COMBO WITH VIT K 1 COMBO 10 ML VIAL IV ONE (20:27)
[2022-10-09] MEDS ORDERED: THIAMINE HCL 200 MG/2 ML VIAL ONE (20:41)
[2022-10-09 21:38] LABS: EPI CELLS >36 /uL (0-25.1); HYALINE CASTS 1 /uL (0-3.1); URINE APPEARANCE CLOUDY; URINE BACTERIA 177 /uL (0-1359); URINE BILIRUBIN NEGATIVE (NEGATIVE); URINE COLOR YELLOW; URINE GLUCOSE (UA) NEGATIVE (NEGATIVE); URINE KETONE TRACE (NEGATIVE); URINE LEUK ESTERASE 2+ (NEGATIVE); URINE NITRITE NEGATIVE (NEGATIVE); URINE PROTEIN NEGATIVE (NEGATIVE); URINE WBC 275 /uL (0-25.8)
[2022-10-09 21:45] LABS: URINE RBC 19.8 /uL (0-23.9)
[2022-10-09] MEDS ORDERED: FOLIC ACID 1 MG TABLET (FP) PO ONE (21:45)
[2022-10-09 21:49] LABS: COCAINE, UR NEGATIVE (NEGATIVE); OPIATES, URI NEGATIVE (NEGATIVE); PHENCYCLIDINE,URINE NEGATIVE (NEGATIVE)
[2022-10-09 21:50] LABS: URINE BARBITURATES NEGATIVE (NEGATIVE); URINE BENZODIAZEPINES NEGATIVE (NEGATIVE)
[2022-10-09] MEDS ORDERED: FOLIC ACID 1 MG TABLET (FP) ONE (21:50)
[2022-10-09 21:51] LABS: URINE AMPHETAMINES NEGATIVE (NEGATIVE)
[2022-10-09 22:08] LABS: METHADONE, UR NEGATIVE (NEGATIVE)
[2022-10-09] MEDS ORDERED: LORazepam 2 MG/ML SDV VIAL IVPUSH PRN (23:53)
[2022-10-10 01:25] VITALS: BMI 23.2
[2022-10-10] MEDS ORDERED: chlordiazePOXIDE HCL 25 MG CAPSULE PO PRN (03:21)
[2022-10-10] MEDS ORDERED: THIAMINE HCL 200 MG/2 ML VIAL IVPB SCH ×3 (04:00→10:00)
[2022-10-10] MEDS: chlordiazePOXIDE HCL 25 MG CAPSULE PO SCH ×4 (05:02→23:17)
[2022-10-10] MEDS: THIAMINE HCL 200 MG/2 ML VIAL IVPB SCH ×3 (05:03→21:24)
[2022-10-10 08:22] LABS: HEMATOCRIT 33.8 % (32.4-45.2); HEMOGLOBIN 11.1 GM/dL (10.7-15.3); MCH 31.7 pg (25.7-33.7); MCHC 32.7 g/dl (32.0-36.0); MEAN CELL VOLUME 96.7 fl (80-96); MEAN PLT VOLUME 7.8 fl (7.5-11.1); PLATELET COUNT 321 10^3/uL (134-434); RDW 14.4 % (11.6-15.6)
[2022-10-10 08:46] LABS: ALBUMIN 3.3 g/dl (3.4-5.0); BLOOD UREA NITROGEN 7.7 mg/dL (7-18); CALCIUM 8.6 mg/dL (8.5-10.1); MAGNESIUM 1.1 mg/dL (1.8-2.4)
[2022-10-10] MEDS ORDERED: MAGNESIUM 2GM/50ML STERILE WATER IVPB IVPB ONE ×2 (08:48→09:30)
[2022-10-10 08:49] LABS: EPI CELLS >36 /uL (0-25.1); HYALINE CASTS 3 /uL (0-3.1); PH,URINE 6.5 (5.0-8.0); URINE APPEARANCE CLOUDY; URINE BACTERIA 202 /uL (0-1359); URINE BILIRUBIN NEGATIVE (NEGATIVE); URINE COLOR YELLOW; URINE GLUCOSE (UA) NEGATIVE (NEGATIVE); URINE KETONE TRACE (NEGATIVE); URINE LEUK ESTERASE 2+ (NEGATIVE); URINE NITRITE NEGATIVE (NEGATIVE); URINE PROTEIN 1+ (NEGATIVE); URINE RBC 35 /uL (0-23.9); URINE WBC 342 /uL (0-25.8)
[2022-10-10 08:50] LABS: CREATININE 0.5 mg/dL (0.55-1.3); PHOSPHOROUS 3.5 mg/dL (2.5-4.9)
[2022-10-10 08:51] LABS: TOT PROT 7.7 g/dl (6.4-8.2)
[2022-10-10 08:52] LABS: BILIRUBIN,TOTAL 1.5 mg/dL (0.2-1)
[2022-10-10] MEDS: levETIRAcetam 500 MG TABLET (FP) PO SCH ×2 (09:32→21:26)
[2022-10-10] MEDS: ENOXAPARIN NA (PORCINE) 40 MG/0.4 ML DISP.SYRIN SQ SCH (09:32)
[2022-10-10 09:33] LABS: MAGNESIUM 1.5 mg/dL (1.8-2.4)
[2022-10-10] MEDS ORDERED: FOLIC ACID 1 MG TABLET (FP) PO SCH (10:00)
[2022-10-10] MEDS: FOLIC ACID 1 MG TABLET (FP) PO SCH (16:25)
[2022-10-10] MEDS: MAGNESIUM OXIDE 400 MG TABLET (FP) PO SCH (21:39)
[2022-10-11] MEDS: chlordiazePOXIDE HCL 25 MG CAPSULE PO SCH ×4 (05:37→22:04)
[2022-10-11] MEDS: THIAMINE HCL 200 MG/2 ML VIAL IVPB SCH ×3 (05:51→21:48)
[2022-10-11] MEDS: FOLIC ACID 1 MG TABLET (FP) PO SCH (09:46)
[2022-10-11] MEDS: MAGNESIUM OXIDE 400 MG TABLET (FP) PO SCH ×2 (09:46→21:48)
[2022-10-11] MEDS: ENOXAPARIN NA (PORCINE) 40 MG/0.4 ML DISP.SYRIN SQ SCH (09:46)
[2022-10-11] MEDS: levETIRAcetam 500 MG TABLET (FP) PO SCH ×2 (09:46→21:48)
[2022-10-11 12:51] LABS: BASO % 0.7 % (0-2.0); EOS % 3.7 % (0-4.5); HEMATOCRIT 35.2 % (32.4-45.2); HEMOGLOBIN 11.6 GM/dL (10.7-15.3); MCH 32.8 pg (25.7-33.7); MCHC 33.1 g/dl (32.0-36.0); MEAN CELL VOLUME 99.2 fl (80-96); MONO % 5.5 % (3.8-10.2); NEUT % 75.1 % (42.8-82.8); PLATELET COUNT 348 10^3/uL (134-434); RBC 3.55 M/mm3 (3.60-5.2); RDW 14.6 % (11.6-15.6); WHITE BLOOD COUNT 5.1 K/mm3 (4.0-10.0)
[2022-10-11 13:17] LABS: ALBUMIN 3.4 g/dl (3.4-5.0); BLOOD UREA NITROGEN 9.1 mg/dL (7-18); MAGNESIUM 1.9 mg/dL (1.8-2.4)
[2022-10-11 13:20] LABS: CREATININE 0.5 mg/dL (0.55-1.3)
[2022-10-11 13:21] LABS: BILIRUBIN,TOTAL 0.9 mg/dL (0.2-1); TOT PROT 7.9 g/dl (6.4-8.2)
[2022-10-11 13:29] LABS: CALCIUM 9.9 mg/dL (8.5-10.1)
[2022-10-12] MEDS ORDERED: chlordiazePOXIDE HCL 10 MG CAPSULE PO PRN
[2022-10-12] MEDS: THIAMINE HCL 200 MG/2 ML VIAL IVPB SCH ×2 (06:46→14:35)
[2022-10-12] MEDS: chlordiazePOXIDE HCL 10 MG CAPSULE PO SCH ×4 (06:47→23:08)
[2022-10-12 09:25] LABS: HEMATOCRIT 37.7 % (32.4-45.2); HEMOGLOBIN 12.4 GM/dL (10.7-15.3); MCH 32.7 pg (25.7-33.7); MCHC 32.8 g/dl (32.0-36.0); MEAN CELL VOLUME 99.5 fl (80-96); MEAN PLT VOLUME 7.9 fl (7.5-11.1); PLATELET COUNT 358 10^3/uL (134-434); RBC 3.79 M/mm3 (3.60-5.2); RDW 14.5 % (11.6-15.6); WHITE BLOOD COUNT 6.8 K/mm3 (4.0-10.0)
[2022-10-12 10:02] LABS: ALBUMIN 3.6 g/dl (3.4-5.0); MAGNESIUM 1.7 mg/dL (1.8-2.4)
[2022-10-12 10:05] LABS: BILIRUBIN,TOTAL 0.8 mg/dL (0.2-1); CREATININE 0.5 mg/dL (0.55-1.3); TOT PROT 8.6 g/dl (6.4-8.2)
[2022-10-12] MEDS: ENOXAPARIN NA (PORCINE) 40 MG/0.4 ML DISP.SYRIN SQ SCH (10:33)
[2022-10-12] MEDS: MAGNESIUM OXIDE 400 MG TABLET (FP) PO SCH ×2 (10:33→21:38)
[2022-10-12] MEDS: FOLIC ACID 1 MG TABLET (FP) PO SCH (10:33)
[2022-10-12] MEDS: levETIRAcetam 500 MG TABLET (FP) PO SCH ×2 (10:33→21:38)
[2022-10-12 10:40] LABS: ANISOCYTOSIS 0; HELMET CELLS 0; HOWELL-JOLLY BODIES 0; MACROCYTOSIS 0; OVALOCYTE 0; ROULEAU 0; SICKELED CELLS 0; TARGET CELLS 0; TEAR DROP CELLS 0; TOXIC GRANULATION 0
[2022-10-13 02:07] VITALS: RESP 16; TEMP 97.7
[2022-10-13] MEDS ORDERED: chlordiazePOXIDE HCL 10 MG CAPSULE PO SCH (05:00)
[2022-10-13] MEDS: levETIRAcetam 500 MG TABLET (FP) PO SCH (09:51)
[2022-10-13] MEDS: MAGNESIUM OXIDE 400 MG TABLET (FP) PO SCH (09:51)
[2022-10-13] MEDS: ENOXAPARIN NA (PORCINE) 40 MG/0.4 ML DISP.SYRIN SQ SCH (09:51)
[2022-10-13] MEDS: FOLIC ACID 1 MG TABLET (FP) PO SCH (09:51)
[2022-10-13] MEDS ORDERED: THIAMINE HCL 200 MG/2 ML VIAL IVPB SCH (10:00)
[2022-10-13] MEDS ORDERED: THIAMINE HCL 100 MG TABLET (FP) PO SCH (10:00)
[2022-10-13 10:29] VITALS: BP 124/78; PULSE 98
[2022-10-14] MEDS ORDERED: chlordiazePOXIDE HCL 10 MG CAPSULE PO ONE (05:00)
== END 2022-10-13 12:00 | disposition home or self-care (01) | DRG 775 ==
LOC: JER 11:09 → JERBED 21:46 → J8W 10-10 00:56
PROVIDERS: ADMIT Internal Medicine; ATTEND Nurse Practitioner Acute Care
PROC: HZ2ZZZZ Detoxification Services for Substance Abuse Treatment (ICD-10-PCS; principal; 2022-10-09)
DX: F10.229 Alcohol dependence with intoxication, unspecified (principal); G40.909 Epilepsy, unspecified, not intractable, without status epilepticus; R26.81 Unsteadiness on feet; E51.2 Wernicke's encephalopathy; Z59.00 Homelessness unspecified
CPT/HCPCS: 0241U-QW; 36415; 70450-TC; 80053; 80177; 80307; 81003; 82140; 82607; 82962; 83735; 84100; 84439; 84443; 85025; 85027; 87086; 93005; 93010; 97116-GP; 99285-25

== ENCOUNTER 2022-10-15 02:59 | Inpatient (IN) | payer OTHER ==
[2022-10-15 03:21] VITALS: BMI 25.7
[2022-10-15] MEDS ORDERED: levETIRAcetam 500 MG/5 ML INJECTION VIAL IVPB ONE ×5 (06:43→21:54)
[2022-10-15] MEDS ORDERED: THIAMINE HCL 200 MG/2 ML VIAL IVPB ONE ×2 (06:47→06:50)
[2022-10-15] MEDS ORDERED: THIAMINE HCL 200 MG/2 ML VIAL ONE (06:50)
[2022-10-15 07:06] LABS: BASO % 0.5 % (0-2.0); EOS % 1.5 % (0-4.5); HEMATOCRIT 36.8 % (32.4-45.2); HEMOGLOBIN 12.1 GM/dL (10.7-15.3); LYMPH % 34.6 % (8-40); MCH 32.8 pg (25.7-33.7); MCHC 32.9 g/dl (32.0-36.0); MEAN CELL VOLUME 99.6 fl (80-96); MEAN PLT VOLUME 7.4 fl (7.5-11.1); MONO % 13.2 % (3.8-10.2); NEUT % 50.2 % (42.8-82.8); PLATELET COUNT 331 10^3/uL (134-434); RBC 3.69 M/mm3 (3.60-5.2); RDW 15.4 % (11.6-15.6); WHITE BLOOD COUNT 8.1 K/mm3 (4.0-10.0)
[2022-10-15 07:42] LABS: CALCIUM 9.2 mg/dL (8.5-10.1)
[2022-10-15 07:43] LABS: ALBUMIN 3.8 g/dl (3.4-5.0); BLOOD UREA NITROGEN 14.9 mg/dL (7-18); MAGNESIUM 1.5 mg/dL (1.8-2.4)
[2022-10-15 07:46] LABS: CREATININE 0.5 mg/dL (0.55-1.3)
[2022-10-15 07:47] LABS: TOT PROT 8.9 g/dl (6.4-8.2)
[2022-10-15 07:48] LABS: BILIRUBIN,TOTAL 0.2 mg/dL (0.2-1)
[2022-10-15 12:23] VITALS: RESP 18
[2022-10-15] MEDS ORDERED: DEXTROSE 5%-NORMAL SALINE 1,000 ML IV ONE (12:57)
[2022-10-15] MEDS: FOLIC ACID 1 MG TABLET (FP) PO SCH (13:23)
[2022-10-15 14:59] LABS: EPI CELLS >36 /uL (0-25.1); HYALINE CASTS 3 /uL (0-3.1); URINE APPEARANCE CLOUDY; URINE BACTERIA 323 /uL (0-1359); URINE BILIRUBIN NEGATIVE (NEGATIVE); URINE COLOR YELLOW; URINE GLUCOSE (UA) NEGATIVE (NEGATIVE); URINE KETONE NEGATIVE (NEGATIVE); URINE LEUK ESTERASE 1+ (NEGATIVE); URINE NITRITE NEGATIVE (NEGATIVE); URINE PROTEIN TRACE (NEGATIVE); URINE RBC 27 /uL (0-23.9); URINE UROBILINOGEN 0.2 mg/dL (0.2-1.0); URINE WBC 122 /uL (0-25.8)
[2022-10-15] MEDS ORDERED: chlordiazePOXIDE HCL 25 MG CAPSULE PO ONE (16:25)
[2022-10-15] MEDS ORDERED: chlordiazePOXIDE HCL 25 MG CAPSULE PO PRN (16:25)
[2022-10-15] MEDS ORDERED: MAGNESIUM 2GM/50ML STERILE WATER IVPB IVPB ONE (16:31)
[2022-10-15] MEDS ORDERED: MAGNESIUM SULFATE IN WATER 2 GM/50 ML IVPB IVPB ONE (16:41)
[2022-10-15] MEDS: DEXTROSE 5%-NORMAL SALINE 1,000 ML IV SCH (16:52)
[2022-10-15] MEDS ORDERED: chlordiazePOXIDE HCL 25 MG CAPSULE ONE ×2 (16:58→21:56)
[2022-10-15] MEDS: chlordiazePOXIDE HCL 25 MG CAPSULE PO SCH ×2 (16:59→17:12)
[2022-10-15] MEDS: levETIRAcetam 500 MG/5 ML INJECTION VIAL IVPB SCH (22:01)
[2022-10-16] MEDS: DEXTROSE 5%-NORMAL SALINE 1,000 ML IV SCH ×2 (03:49→16:57)
[2022-10-16] MEDS: chlordiazePOXIDE HCL 25 MG CAPSULE PO SCH ×4 (04:53→22:37)
[2022-10-16 08:21] LABS: BASO % 0.5 % (0-2.0); EOS % 2.4 % (0-4.5); HEMOGLOBIN 10.4 GM/dL (10.7-15.3); LYMPH % 32.5 % (8-40); MCH 33.1 pg (25.7-33.7); MCHC 33.7 g/dl (32.0-36.0); MEAN CELL VOLUME 98.2 fl (80-96); MEAN PLT VOLUME 7.7 fl (7.5-11.1); MONO % 10.9 % (3.8-10.2); NEUT % 53.7 % (42.8-82.8); PLATELET COUNT 267 10^3/uL (134-434); RBC 3.15 M/mm3 (3.60-5.2); RDW 14.6 % (11.6-15.6); WHITE BLOOD COUNT 5.9 K/mm3 (4.0-10.0)
[2022-10-16 08:41] LABS: CALCIUM 8.8 mg/dL (8.5-10.1)
[2022-10-16 08:42] LABS: BLOOD UREA NITROGEN 21.7 mg/dL (7-18); MAGNESIUM 1.6 mg/dL (1.8-2.4)
[2022-10-16 08:45] LABS: CREATININE 0.5 mg/dL (0.55-1.3); PHOSPHOROUS 3.8 mg/dL (2.5-4.9)
[2022-10-16 08:46] LABS: BILIRUBIN,TOTAL 0.4 mg/dL (0.2-1)
[2022-10-16 09:00] LABS: ALBUMIN 2.9 g/dl (3.4-5.0); TOT PROT 6.8 g/dl (6.4-8.2)
[2022-10-16] MEDS ORDERED: MAGNESIUM 2GM/50ML STERILE WATER IVPB IVPB ONE (11:00)
[2022-10-16] MEDS: ENOXAPARIN NA (PORCINE) 40 MG/0.4 ML DISP.SYRIN SQ SCH (11:34)
[2022-10-16] MEDS: FOLIC ACID 1 MG TABLET (FP) PO SCH (11:34)
[2022-10-16] MEDS: levETIRAcetam 500 MG/5 ML INJECTION VIAL IVPB SCH ×2 (11:34→22:35)
[2022-10-16] MEDS: THIAMINE HCL 200 MG/2 ML VIAL IVPB SCH (11:34)
[2022-10-17] MEDS ORDERED: chlordiazePOXIDE HCL 10 MG CAPSULE PO PRN
[2022-10-17] MEDS: chlordiazePOXIDE HCL 25 MG CAPSULE PO SCH ×4 (05:42→22:41)
[2022-10-17] MEDS: levETIRAcetam 500 MG/5 ML INJECTION VIAL IVPB SCH ×2 (10:36→22:41)
[2022-10-17] MEDS: THIAMINE HCL 200 MG/2 ML VIAL IVPB SCH (10:36)
[2022-10-17] MEDS: ENOXAPARIN NA (PORCINE) 40 MG/0.4 ML DISP.SYRIN SQ SCH (10:37)
[2022-10-17] MEDS: FOLIC ACID 1 MG TABLET (FP) PO SCH (10:37)
[2022-10-18] MEDS: chlordiazePOXIDE HCL 10 MG CAPSULE PO SCH ×4 (05:38→22:18)
[2022-10-18] MEDS: levETIRAcetam 500 MG/5 ML INJECTION VIAL IVPB SCH (10:17)
[2022-10-18] MEDS: THIAMINE HCL 200 MG/2 ML VIAL IVPB SCH (10:17)
[2022-10-18] MEDS: FOLIC ACID 1 MG TABLET (FP) PO SCH (11:10)
[2022-10-18] MEDS: ENOXAPARIN NA (PORCINE) 40 MG/0.4 ML DISP.SYRIN SQ SCH (11:11)
[2022-10-18] MEDS ORDERED: levETIRAcetam 250 MG TABLET PO SCH ×2 (18:00→22:00)
[2022-10-18] MEDS ORDERED: levETIRAcetam 500 MG TABLET (FP) PO SCH (18:00)
[2022-10-19] MEDS ORDERED: chlordiazePOXIDE HCL 10 MG CAPSULE PO ONE (05:00)
[2022-10-19] MEDS: chlordiazePOXIDE HCL 10 MG CAPSULE PO SCH ×2 (05:56→17:16)
[2022-10-19] MEDS: ENOXAPARIN NA (PORCINE) 40 MG/0.4 ML DISP.SYRIN SQ SCH ×2 (10:23→10:50)
[2022-10-19] MEDS: FOLIC ACID 1 MG TABLET (FP) PO SCH (10:24)
[2022-10-19] MEDS: THIAMINE HCL 200 MG/2 ML VIAL IVPB SCH (10:24)
[2022-10-20] MEDS: FOLIC ACID 1 MG TABLET (FP) PO SCH (10:24)
[2022-10-20] MEDS: THIAMINE HCL 200 MG/2 ML VIAL IVPB SCH (10:25)
[2022-10-20] MEDS: ENOXAPARIN NA (PORCINE) 40 MG/0.4 ML DISP.SYRIN SQ SCH (10:25)
[2022-10-20 11:48] VITALS: BP 106/59; PULSE 82; TEMP 98.1
== END 2022-10-20 13:06 | disposition home or self-care (01) | DRG 775 ==
LOC: JER 02:59 → JERBED 08:42 → J7W 10-16 01:46
PROVIDERS: ADMIT Internal Medicine; ATTEND Family Medicine
PROC: HZ2ZZZZ Detoxification Services for Substance Abuse Treatment (ICD-10-PCS; principal; 2022-10-15)
DX: F10.239 Alcohol dependence with withdrawal, unspecified (principal); E51.2 Wernicke's encephalopathy; F32.9 Major depressive disorder, single episode, unspecified; G40.909 Epilepsy, unspecified, not intractable, without status epilepticus
CPT/HCPCS: 0241U-QW; 36415; 70450-TC; 80053; 80177; 80307; 81003; 82607; 82962; 83735; 84100; 84443; 84703; 85025; 93005; 93010; 97116-GP; 99285-25

== ENCOUNTER 2022-12-21 13:50 | Observation (INO) | payer OTHER ==
[2022-12-21] MEDS ORDERED: THIAMINE HCL 200 MG/2 ML VIAL IVPB ONE ×2 (14:41→14:49)
[2022-12-21] MEDS ORDERED: chlordiazePOXIDE HCL 25 MG CAPSULE PO ONE (14:46)
[2022-12-21] MEDS ORDERED: FOLIC ACID INJECTION - 1 MG, THIAMINE HCL 100 MG, MULTIVIT INJECTION ADULT 10 ML in SOD... IVPB ONE (14:46)
[2022-12-21] MEDS ORDERED: levETIRAcetam 500 MG/5 ML INJECTION VIAL IVPB ONE ×2 (15:31→16:00)
[2022-12-21] MEDS ORDERED: chlordiazePOXIDE HCL 25 MG CAPSULE ONE (16:00)
[2022-12-21 16:08] LABS: VENOUS BASE EXCESS -1.2 mmol/L (-2-2); VENOUS O2 SATURATION 48.5 % (70-80); VENOUS PCO2 44.1 mmHg (38-52); VENOUS PH 7.362 (7.310-7.410)
[2022-12-21 16:10] LABS: POTASSIUM 3.7 mmol/L (3.5-5.1)
[2022-12-21 16:13] LABS: ALBUMIN 3.8 g/dl (3.4-5.0); BASO % 0.9 % (0-2.0); BLOOD UREA NITROGEN 6.7 mg/dL (7-18); CALCIUM 8.7 mg/dL (8.5-10.1); EOS % 0.4 % (0-4.5); HEMATOCRIT 35.1 % (32.4-45.2); HEMOGLOBIN 11.8 GM/dL (10.7-15.3); LYMPH % 45.7 % (8-40); MCH 31.1 pg (25.7-33.7); MCHC 33.5 g/dl (32.0-36.0); MEAN CELL VOLUME 92.8 fl (80-96); MEAN PLT VOLUME 6.9 fl (7.5-11.1); MONO % 6.1 % (3.8-10.2); NEUT % 46.9 % (42.8-82.8); PLATELET COUNT 309 10^3/uL (134-434); RBC 3.79 M/mm3 (3.60-5.2); RDW 13.7 % (11.6-15.6); WHITE BLOOD COUNT 5.8 K/mm3 (4.0-10.0)
[2022-12-21 16:16] LABS: CREATININE 0.6 mg/dL (0.55-1.3)
[2022-12-21 16:18] LABS: TOT PROT 9.3 g/dl (6.4-8.2)
[2022-12-21] MEDS ORDERED: THIAMINE HCL 200 MG/2 ML VIAL ONE ×2 (16:58→17:04)
[2022-12-21] MEDS ORDERED: DOCUSATE SODIUM 100 MG CAPSULE (FP) PO PRN (20:03)
[2022-12-21] MEDS ORDERED: FOLIC ACID 1 MG TABLET (FP) PO ONE (20:13)
[2022-12-21] MEDS ORDERED: chlordiazePOXIDE HCL 25 MG CAPSULE PO PRN (20:19)
[2022-12-21] MEDS ORDERED: FOLIC ACID 1 MG TABLET (FP) ONE (20:33)
[2022-12-21] MEDS ORDERED: HEPARIN NA (PORCINE) 5,000 UNITS/ML 1ML VIAL ONE (21:36)
[2022-12-21 21:44] LABS: POTASSIUM 3.3 mmol/L (3.5-5.1)
[2022-12-21 21:46] LABS: BLOOD UREA NITROGEN 8.1 mg/dL (7-18)
[2022-12-21 21:47] LABS: CALCIUM 7.9 mg/dL (8.5-10.1); MAGNESIUM 1.3 mg/dL (1.8-2.4)
[2022-12-21 21:49] LABS: CREATININE 0.6 mg/dL (0.55-1.3); PHOSPHOROUS 2.6 mg/dL (2.5-4.9)
[2022-12-21 22:02] LABS: ACTIVATED PTT 26.1 SECONDS (25.2-36.5); INR 1.12 (0.83-1.09)
[2022-12-21] MEDS ORDERED: chlordiazePOXIDE HCL 25 MG CAPSULE PO SCH (23:00)
[2022-12-22] MEDS ORDERED: MAGNESIUM OXIDE 400 MG TABLET (FP) PO ONE (04:30)
[2022-12-22] MEDS ORDERED: MAGNESIUM SULFATE IN WATER 2 GM/50 ML IVPB IVPB ONE (04:30)
[2022-12-22] MEDS ORDERED: POTASSIUM CHLORIDE ORAL LIQUID 20 MEQ/15 ML PO ONE (04:30)
[2022-12-22 05:22] VITALS: BMI 24.7
[2022-12-22 07:39] LABS: BASO % 0.7 % (0-2.0); EOS % 2.2 % (0-4.5); HEMATOCRIT 29.4 % (32.4-45.2); LYMPH % 49.9 % (8-40); MCH 31.5 pg (25.7-33.7); MCHC 33.9 g/dl (32.0-36.0); MEAN CELL VOLUME 92.8 fl (80-96); MEAN PLT VOLUME 7.1 fl (7.5-11.1); MONO % 8.7 % (3.8-10.2); NEUT % 38.5 % (42.8-82.8); PLATELET COUNT 223 10^3/uL (134-434); RBC 3.16 M/mm3 (3.60-5.2); RDW 13.2 % (11.6-15.6); WHITE BLOOD COUNT 3.7 K/mm3 (4.0-10.0)
[2022-12-22 08:01] LABS: POTASSIUM 4.2 mmol/L (3.5-5.1)
[2022-12-22 08:06] LABS: CALCIUM 8.3 mg/dL (8.5-10.1)
[2022-12-22 08:07] LABS: BLOOD UREA NITROGEN 8.2 mg/dL (7-18)
[2022-12-22 08:10] LABS: CREATININE 0.5 mg/dL (0.55-1.3)
[2022-12-22] MEDS ORDERED: chlordiazePOXIDE HCL 25 MG CAPSULE PO PRN (10:03)
[2022-12-22] MEDS: THIAMINE HCL 100 MG TABLET (FP) PO SCH (10:07)
[2022-12-22] MEDS: levETIRAcetam 250 MG TABLET PO SCH ×2 (10:07→23:50)
[2022-12-22] MEDS: MULTIVITAMINS THER W-MINERALS COMBO TABLET (FP) PO SCH (10:07)
[2022-12-22] MEDS: chlordiazePOXIDE HCL 25 MG CAPSULE PO SCH ×3 (10:44→23:49)
[2022-12-22] MEDS: HEPARIN NA (PORCINE) 5,000 UNITS/ML 1ML VIAL SQ SCH (23:50)
[2022-12-23] MEDS ORDERED: chlordiazePOXIDE HCL 25 MG CAPSULE PO SCH (05:00)
[2022-12-23] MEDS: chlordiazePOXIDE HCL 25 MG CAPSULE PO SCH ×2 (06:47→11:11)
[2022-12-23 07:51] LABS: BASO % 0.7 % (0-2.0); HEMATOCRIT 30.4 % (32.4-45.2); HEMOGLOBIN 10.4 GM/dL (10.7-15.3); LYMPH % 48.5 % (8-40); MCH 31.8 pg (25.7-33.7); MCHC 34.4 g/dl (32.0-36.0); MEAN CELL VOLUME 92.5 fl (80-96); MEAN PLT VOLUME 7.8 fl (7.5-11.1); MONO % 9.3 % (3.8-10.2); NEUT % 37.5 % (42.8-82.8); PLATELET COUNT 210 10^3/uL (134-434); RBC 3.28 M/mm3 (3.60-5.2); RDW 12.9 % (11.6-15.6); WHITE BLOOD COUNT 3.2 K/mm3 (4.0-10.0)
[2022-12-23 08:09] LABS: POTASSIUM 3.8 mmol/L (3.5-5.1)
[2022-12-23 08:15] LABS: MAGNESIUM 1.5 mg/dL (1.8-2.4)
[2022-12-23 08:16] LABS: BLOOD UREA NITROGEN 5.3 mg/dL (7-18)
[2022-12-23 08:18] LABS: CREATININE 0.5 mg/dL (0.55-1.3)
[2022-12-23 08:19] LABS: TOT PROT 7.6 g/dl (6.4-8.2)
[2022-12-23 08:20] LABS: BILIRUBIN,TOTAL 1.2 mg/dL (0.2-1)
[2022-12-23] MEDS ORDERED: MAGNESIUM OXIDE 400 MG TABLET (FP) PO SCH (10:00)
[2022-12-23] MEDS: MULTIVITAMINS THER W-MINERALS COMBO TABLET (FP) PO SCH (10:01)
[2022-12-23] MEDS: levETIRAcetam 250 MG TABLET PO SCH (10:01)
[2022-12-23] MEDS: THIAMINE HCL 100 MG TABLET (FP) PO SCH (10:01)
[2022-12-23] MEDS: HEPARIN NA (PORCINE) 5,000 UNITS/ML 1ML VIAL SQ SCH (10:03)
[2022-12-23 11:12] VITALS: TEMP 98.3
[2022-12-23 13:59] VITALS: BP 124/62; PULSE 93; RESP 18
[2022-12-23] MEDS ORDERED: BANATROL PLUS POWDER PACKET PO SCH (14:00)
[2022-12-24] MEDS ORDERED: chlordiazePOXIDE HCL 10 MG CAPSULE PO PRN
[2022-12-24] MEDS ORDERED: chlordiazePOXIDE HCL 10 MG CAPSULE PO SCH (05:00)
[2022-12-24] MEDS ORDERED: chlordiazePOXIDE HCL 25 MG CAPSULE PO SCH (05:00)
[2022-12-25] MEDS ORDERED: chlordiazePOXIDE HCL 10 MG CAPSULE PO PRN
[2022-12-25] MEDS ORDERED: chlordiazePOXIDE HCL 10 MG CAPSULE PO SCH ×2 (05:00)
[2022-12-26] MEDS ORDERED: chlordiazePOXIDE HCL 10 MG CAPSULE PO ONE (05:00)
[2022-12-26] MEDS ORDERED: chlordiazePOXIDE HCL 10 MG CAPSULE PO SCH (05:00)
[2022-12-27] MEDS ORDERED: chlordiazePOXIDE HCL 10 MG CAPSULE PO ONE (05:00)
== END 2022-12-23 14:44 | disposition left against medical advice (07) ==
LOC: JER 13:50 → JERBED 17:37 → J8W 22:44
PROVIDERS: ADMIT Internal Medicine; ATTEND Nurse Practitioner Acute Care
PROC: 3E033GC Introduction of Other Therapeutic Substance into Peripheral Vein, Percutaneous Approach (ICD-10-PCS; principal; 2022-12-21)
DX: E51.2 Wernicke's encephalopathy (principal); R27.0 Ataxia, unspecified; F10.20 Alcohol dependence, uncomplicated; R56.9 Unspecified convulsions; R29.6 Repeated falls; Z87.898 Personal history of other specified conditions; F17.210 Nicotine dependence, cigarettes, uncomplicated; E87.6 Hypokalemia
CPT/HCPCS: 0241U-QW; 36415; 70450-TC; 80048; 80053; 80177; 80307; 82607; 82746; 82803; 82962; 83690; 83735; 84100; 84425; 84484; 84703; 85025; 85610; 85730; 93005; 93010; 96365; 96367; 96375; 99285-25; G0378; J1644

== ENCOUNTER 2023-05-16 17:30 | Inpatient (IN) | payer OTHER ==
[2023-05-16 18:03] VITALS: BMI 21.1
[2023-05-16] MEDS ORDERED: POLYETHYLENE GLYCOL (HEALTHYLAX) 3350 17 GM PACKET PO PRN (18:45)
[2023-05-16] MEDS ORDERED: LOPERAMIDE HCL 2 MG CAPSULE PO PRN (18:45)
[2023-05-16] MEDS ORDERED: METHOCARBAMOL 500 MG TABLET PO PRN (18:45)
[2023-05-16] MEDS ORDERED: BENZONATATE 200 MG CAPSULE PO PRN (18:45)
[2023-05-16] MEDS ORDERED: IBUPROFEN 400 MG TABLET (FP) PO PRN (18:45)
[2023-05-16] MEDS ORDERED: guaiFENesin 600 MG TABLET.ER (FP) PO PRN (18:45)
[2023-05-16] MEDS ORDERED: ACETAMINOPHEN 325 MG TABLET (FP) PO PRN (18:45)
[2023-05-16] MEDS ORDERED: BENZOCAINE/MENTHOL (CHLORASEPTIC ) LOZENGE MM PRN (18:45)
[2023-05-16] MEDS ORDERED: DICYCLOMINE HCL 10 MG CAPSULE PO PRN (18:45)
[2023-05-16] MEDS ORDERED: BISMUTH SUBSALICYLATE 524 MG/30 ML PO PRN (18:45)
[2023-05-16] MEDS ORDERED: IBUPROFEN 600 MG TABLET (FP) PO PRN (18:45)
[2023-05-16] MEDS ORDERED: MAGNESIUM HYDROX 2400MG/30ML ORAL SUSPENSION 30 ML CUP PO PRN (18:45)
[2023-05-16] MEDS ORDERED: ONDANSETRON *ODT* 4 MG TABLET SL PRN (18:45)
[2023-05-16] MEDS ORDERED: MAG HYDROX/AL HYDROX/SIMETH 30 ML UNIT-DOSE CUP PO PRN (18:45)
[2023-05-16] MEDS: levETIRAcetam 500 MG TABLET (FP) PO SCH (21:45)
[2023-05-16] MEDS: MELATONIN 5 MG TABLETS PO SCH (21:45)
[2023-05-16] MEDS: THIAMINE HCL 100 MG TABLET (FP) PO SCH (21:46)
[2023-05-16] MEDS: hydrOXYzine PAMOATE 25 MG CAPSULE (FP) PO PRN (21:46)
[2023-05-17] MEDS: levETIRAcetam 500 MG TABLET (FP) PO SCH ×2 (09:24→22:35)
[2023-05-17] MEDS: PRENATAL VITAMINS W/ FOLIC ACID TABLET (FP) PO SCH (09:27)
[2023-05-17] MEDS ORDERED: chlordiazePOXIDE HCL 25 MG CAPSULE PO PRN (09:54)
[2023-05-17 10:24] LABS: POTASSIUM 4.5 mmol/L (3.5-5.1)
[2023-05-17] MEDS: chlordiazePOXIDE HCL 25 MG CAPSULE PO SCH ×3 (10:24→22:36)
[2023-05-17 10:26] LABS: HEMATOCRIT 34.1 % (32.4-45.2); HEMOGLOBIN 11.6 GM/dL (10.7-15.3); MCH 33.2 pg (25.7-33.7); MEAN CELL VOLUME 97.7 fl (80-96); MEAN PLT VOLUME 6.8 fl (7.5-11.1); PLATELET COUNT 271 10^3/uL (134-434); RBC 3.49 M/mm3 (3.60-5.2); RDW 16.1 % (11.6-15.6); WHITE BLOOD COUNT 3.2 K/mm3 (4.0-10.0)
[2023-05-17 10:28] LABS: CALCIUM 8.9 mg/dL (8.5-10.1)
[2023-05-17 10:29] LABS: ALBUMIN 3.4 g/dl (3.4-5.0)
[2023-05-17 10:32] LABS: CREATININE 0.7 mg/dL (0.55-1.3)
[2023-05-17 10:33] LABS: TOT PROT 8.5 g/dl (6.4-8.2)
[2023-05-17 10:34] LABS: BILIRUBIN,TOTAL 0.6 mg/dL (0.2-1)
[2023-05-17] MEDS: THIAMINE HCL 100 MG TABLET (FP) PO SCH (22:35)
[2023-05-17] MEDS: MELATONIN 5 MG TABLETS PO SCH (22:35)
[2023-05-18] MEDS: chlordiazePOXIDE HCL 25 MG CAPSULE PO SCH ×4 (05:54→22:37)
[2023-05-18] MEDS: levETIRAcetam 500 MG TABLET (FP) PO SCH ×2 (10:11→22:37)
[2023-05-18] MEDS: PRENATAL VITAMINS W/ FOLIC ACID TABLET (FP) PO SCH (10:12)
[2023-05-18] MEDS: THIAMINE HCL 100 MG TABLET (FP) PO SCH (22:37)
[2023-05-18] MEDS: MELATONIN 5 MG TABLETS PO SCH (22:37)
[2023-05-19] MEDS: chlordiazePOXIDE HCL 25 MG CAPSULE PO SCH ×4 (05:50→22:20)
[2023-05-19] MEDS: levETIRAcetam 500 MG TABLET (FP) PO SCH ×2 (10:32→22:20)
[2023-05-19] MEDS: PRENATAL VITAMINS W/ FOLIC ACID TABLET (FP) PO SCH (10:34)
[2023-05-19] MEDS: MELATONIN 5 MG TABLETS PO SCH (22:20)
[2023-05-19] MEDS: THIAMINE HCL 100 MG TABLET (FP) PO SCH (22:20)
[2023-05-19] MEDS: hydrOXYzine PAMOATE 25 MG CAPSULE (FP) PO PRN (22:21)
[2023-05-20] MEDS ORDERED: chlordiazePOXIDE HCL 10 MG CAPSULE PO PRN
[2023-05-20] MEDS: chlordiazePOXIDE HCL 10 MG CAPSULE PO SCH ×4 (05:38→22:20)
[2023-05-20] MEDS: levETIRAcetam 500 MG TABLET (FP) PO SCH ×2 (10:27→22:19)
[2023-05-20] MEDS: PRENATAL VITAMINS W/ FOLIC ACID TABLET (FP) PO SCH (10:28)
[2023-05-20] MEDS: MELATONIN 5 MG TABLETS PO SCH (22:19)
[2023-05-20] MEDS: THIAMINE HCL 100 MG TABLET (FP) PO SCH (22:20)
[2023-05-21] MEDS: chlordiazePOXIDE HCL 10 MG CAPSULE PO SCH ×2 (05:43→17:18)
[2023-05-21] MEDS: levETIRAcetam 500 MG TABLET (FP) PO SCH ×2 (10:32→22:09)
[2023-05-21] MEDS: PRENATAL VITAMINS W/ FOLIC ACID TABLET (FP) PO SCH (10:32)
[2023-05-21 21:18] VITALS: RESP 18
[2023-05-21] MEDS: MELATONIN 5 MG TABLETS PO SCH (22:09)
[2023-05-21] MEDS: THIAMINE HCL 100 MG TABLET (FP) PO SCH (22:09)
[2023-05-22] MEDS ORDERED: chlordiazePOXIDE HCL 10 MG CAPSULE PO ONE (05:00)
[2023-05-22 08:59] VITALS: BP 108/67; PULSE 73; TEMP 98.1
[2023-05-22] MEDS: levETIRAcetam 500 MG TABLET (FP) PO SCH (09:23)
[2023-05-22] MEDS: PRENATAL VITAMINS W/ FOLIC ACID TABLET (FP) PO SCH (09:23)
== END 2023-05-22 10:03 | disposition home or self-care (01) | DRG 775 ==
LOC: YASAS 17:30 → Y3N 20:19
PROVIDERS: ADMIT Allergy & Immunology; ATTEND Surgery
PROC: HZ2ZZZZ Detoxification Services for Substance Abuse Treatment (ICD-10-PCS; principal; 2023-05-16)
DX: F10.230 Alcohol dependence with withdrawal, uncomplicated (principal); F10.220 Alcohol dependence with intoxication, uncomplicated; F12.10 Cannabis abuse, uncomplicated; R26.89 Other abnormalities of gait and mobility; Z99.89 Dependence on other enabling machines and devices; Z86.69 Personal history of other diseases of the nervous system and sense organs; Z28.310 Unvaccinated for COVID-19; Z28.9 Immunization not carried out for unspecified reason
CPT/HCPCS: 36415; 80053; 81025; 85027; 86780; 87635

== ENCOUNTER 2023-06-03 01:42 | Emergency (ER) | payer OTHER ==
[2023-06-03 01:52] VITALS: BP 108/69; PULSE 110; RESP 20; TEMP 98.3; BMI 22.3
[2023-06-03] MEDS ORDERED: LIDOCAINE 4% PATCH TP ONE ×2 (02:34→02:54)
[2023-06-03] MEDS ORDERED: LIDOCAINE PATCH REMOVAL MC SCH (22:00)
== END 2023-06-03 03:06 | disposition home or self-care (01) ==
LOC: JER 01:42
DX: M25.571 Pain in right ankle and joints of right foot (principal)
CPT/HCPCS: 99283-25

== ENCOUNTER 2023-06-15 15:40 | Emergency (ER) | payer OTHER ==
[2023-06-15 17:18] VITALS: RESP 17; BMI 22.3
[2023-06-15] MEDS ORDERED: levETIRAcetam 500 MG/5 ML INJECTION VIAL IVPB ONE ×3 (17:52→18:02)
[2023-06-15] MEDS ORDERED: ONDANSETRON 4 MG/2 ML VIAL IVPUSH ONE (18:10)
[2023-06-15] MEDS ORDERED: SODIUM CHLORIDE 0.9% 500 ML INFUS.BAG IV ONE (18:10)
[2023-06-15] MEDS ORDERED: ONDANSETRON 4 MG/2 ML VIAL ONE (18:14)
[2023-06-15 18:18] LABS: BASO % 0.2 % (0-2.0); EOS % 0.3 % (0-4.5); HEMATOCRIT 33.9 % (32.4-45.2); HEMOGLOBIN 11.5 GM/dL (10.7-15.3); LYMPH % 17.3 % (8-40); MCH 32.4 pg (25.7-33.7); MCHC 33.9 g/dl (32.0-36.0); MEAN CELL VOLUME 95.5 fl (80-96); MEAN PLT VOLUME 6.6 fl (7.5-11.1); NEUT % 74.2 % (42.8-82.8); PLATELET COUNT 231 10^3/uL (134-434); RBC 3.55 M/mm3 (3.60-5.2); RDW 15.5 % (11.6-15.6); WHITE BLOOD COUNT 6.4 K/mm3 (4.0-10.0)
[2023-06-15 18:26] LABS: POTASSIUM 3.6 mmol/L (3.5-5.1)
[2023-06-15 18:29] LABS: ALBUMIN 3.6 g/dl (3.4-5.0); BLOOD UREA NITROGEN 5.9 mg/dL (7-18)
[2023-06-15 18:32] LABS: CREATININE 0.6 mg/dL (0.55-1.3)
[2023-06-15 18:33] LABS: BILIRUBIN,TOTAL 1.1 mg/dL (0.2-1); TOT PROT 8.6 g/dl (6.4-8.2)
[2023-06-15 21:33] VITALS: BP 132/89; PULSE 88; TEMP 97.5
== END 2023-06-15 21:51 | disposition home or self-care (01) ==
LOC: JER 15:40
PROC: 3E033GC Introduction of Other Therapeutic Substance into Peripheral Vein, Percutaneous Approach (ICD-10-PCS; principal; 2023-06-15)
PROC: 3E033GC Introduction of Other Therapeutic Substance into Peripheral Vein, Percutaneous Approach (ICD-10-PCS; 2023-06-15)
DX: G40.909 Epilepsy, unspecified, not intractable, without status epilepticus (principal); R11.0 Nausea
CPT/HCPCS: 36415; 70450-TC; 80053; 84703; 85025; 93005; 93010; 99285-25

== ENCOUNTER 2023-08-19 18:10 | Emergency (ER) | payer OTHER ==
[2023-08-19 18:31] VITALS: BP 125/70; TEMP 98.4; BMI 24.0
[2023-08-19] MEDS ORDERED: ONDANSETRON 4 MG/2 ML VIAL IVPUSH ONE (18:41)
[2023-08-19] MEDS ORDERED: levETIRAcetam 500 MG/5 ML INJECTION VIAL IVPB ONE ×2 (18:47→19:24)
[2023-08-19] MEDS ORDERED: SODIUM CHLORIDE 0.9% 500 ML INFUS.BAG IV ONE ×2 (19:01→20:17)
[2023-08-19] MEDS ORDERED: ONDANSETRON 4 MG/2 ML VIAL ONE (19:24)
[2023-08-19 19:45] LABS: BASO % 0.7 % (0-2.0); EOS % 0.2 % (0-4.5); HEMATOCRIT 35.4 % (32.4-45.2); HEMOGLOBIN 11.5 GM/dL (10.7-15.3); LYMPH % 20.7 % (8-40); MCH 31.8 pg (25.7-33.7); MCHC 32.6 g/dl (32.0-36.0); MEAN CELL VOLUME 97.6 fl (80-96); MONO % 10.5 % (3.8-10.2); NEUT % 67.9 % (42.8-82.8); PLATELET COUNT 258 10^3/uL (134-434); RBC 3.63 M/mm3 (3.60-5.2); RDW 16.4 % (11.6-15.6); WHITE BLOOD COUNT 3.5 K/mm3 (4.0-10.0)
[2023-08-19 20:05] LABS: POTASSIUM 3.7 mmol/L (3.5-5.1)
[2023-08-19 20:07] LABS: ALBUMIN 3.2 g/dl (3.4-5.0); BLOOD UREA NITROGEN 6.4 mg/dL (7-18); CALCIUM 8.2 mg/dL (8.5-10.1); MAGNESIUM 1.6 mg/dL (1.8-2.4)
[2023-08-19 20:10] LABS: CREATININE 0.7 mg/dL (0.55-1.3)
[2023-08-19] MEDS ORDERED: MAGNESIUM SULF 50% (8.12 MEQ/2 ML-1 GM VIAL) IVPB ONE (20:11)
[2023-08-19 20:12] LABS: BILIRUBIN,TOTAL 0.7 mg/dL (0.2-1); TOT PROT 8.4 g/dl (6.4-8.2)
[2023-08-19] MEDS ORDERED: METOCLOPRAMIDE HCL INJECTION 10 MG/2 ML VIAL IVPB ONE (20:17)
[2023-08-19] MEDS ORDERED: ACETAMINOPHEN 1000 MG/100 ML BAG IVPB ONE (20:17)
[2023-08-19] MEDS ORDERED: ACETAMINOPHEN INJECTION 100 ML IVPB ONE (20:53)
[2023-08-19] MEDS ORDERED: METOCLOPRAMIDE HCL INJECTION 10 MG/2 ML VIAL ONE (20:53)
[2023-08-19] MEDS ORDERED: MAGNESIUM 1GM/D5W - 1 GM/100 ML IVPB IVPB ONE (20:53)
[2023-08-19 22:36] VITALS: PULSE 85; RESP 18
== END 2023-08-19 22:50 | disposition home or self-care (01) ==
LOC: JER 18:10
PROC: 3E033NZ Introduction of Analgesics, Hypnotics, Sedatives into Peripheral Vein, Percutaneous Approach (ICD-10-PCS; principal; 2023-08-19)
PROC: 3E033GC Introduction of Other Therapeutic Substance into Peripheral Vein, Percutaneous Approach (ICD-10-PCS; 2023-08-19)
PROC: 3E033GC Introduction of Other Therapeutic Substance into Peripheral Vein, Percutaneous Approach (ICD-10-PCS; 2023-08-19)
PROC: 3E033GC Introduction of Other Therapeutic Substance into Peripheral Vein, Percutaneous Approach (ICD-10-PCS; 2023-08-19)
PROC: 3E033GC Introduction of Other Therapeutic Substance into Peripheral Vein, Percutaneous Approach (ICD-10-PCS; 2023-08-19)
DX: G40.909 Epilepsy, unspecified, not intractable, without status epilepticus (principal); R11.2 Nausea with vomiting, unspecified; Z20.822 Contact with and (suspected) exposure to COVID-19
CPT/HCPCS: 0241U-QW; 36415; 80053; 82962; 83735; 84703; 85025; 99284-25

== ENCOUNTER 2023-10-12 10:05 | Inpatient (IN) | payer OTHER ==
[2023-10-12 10:27] VITALS: BMI 21.4
[2023-10-12] MEDS ORDERED: guaiFENesin 600 MG TABLET.ER (FP) PO PRN (13:02)
[2023-10-12] MEDS ORDERED: MAGNESIUM HYDROX 2400MG/30ML ORAL SUSPENSION 30 ML CUP PO PRN (13:02)
[2023-10-12] MEDS ORDERED: NALOXONE HCL (KLOXXADO) 8 MG SPRAY NS PRN (13:02)
[2023-10-12] MEDS ORDERED: POLYETHYLENE GLYCOL (HEALTHYLAX) 3350 17 GM PACKET PO PRN (13:02)
[2023-10-12] MEDS ORDERED: DICYCLOMINE HCL 10 MG CAPSULE PO PRN (13:02)
[2023-10-12] MEDS ORDERED: BENZOCAINE/MENTHOL (CHLORASEPTIC ) LOZENGE MM PRN (13:02)
[2023-10-12] MEDS ORDERED: BENZONATATE 200 MG CAPSULE PO PRN (13:02)
[2023-10-12] MEDS ORDERED: MAG HYDROX/AL HYDROX/SIMETH 30 ML UNIT-DOSE CUP PO PRN (13:02)
[2023-10-12] MEDS ORDERED: BISMUTH SUBSALICYLATE 524 MG/30 ML PO PRN (13:02)
[2023-10-12] MEDS ORDERED: ACETAMINOPHEN 325 MG TABLET (FP) PO PRN (13:02)
[2023-10-12] MEDS ORDERED: IBUPROFEN 400 MG TABLET (FP) PO PRN (13:02)
[2023-10-12] MEDS ORDERED: ONDANSETRON *ODT* 4 MG TABLET SL PRN (13:02)
[2023-10-12] MEDS ORDERED: NALOXONE HCL 0.4 MG/ML VIAL IM PRN (13:02)
[2023-10-12] MEDS ORDERED: NICOTINE POLACRILEX 2 MG GUM BUC PRN (13:02)
[2023-10-12] MEDS ORDERED: LOPERAMIDE HCL 2 MG CAPSULE PO PRN (13:02)
[2023-10-12] MEDS ORDERED: levETIRAcetam 500 MG TABLET (FP) PO ONE (13:33)
[2023-10-12] MEDS ORDERED: TRIMETHOBENZAMIDE HCL 200MG/2ML INJ IM ONE (13:33)
[2023-10-12] MEDS: TRIMETHOBENZAMIDE HCL 200MG/2ML INJ IM ONE (13:41)
[2023-10-12] MEDS: levETIRAcetam 500 MG TABLET (FP) PO SCH (14:11)
[2023-10-12] MEDS: chlordiazePOXIDE HCL 25 MG CAPSULE PO PRN (14:55)
[2023-10-12] MEDS: chlordiazePOXIDE HCL 25 MG CAPSULE PO SCH (17:47)
[2023-10-12] MEDS ORDERED: THIAMINE HCL 100 MG TABLET (FP) PO SCH (22:00)
[2023-10-12] MEDS: MELATONIN 5 MG TABLETS PO SCH (23:12)
[2023-10-13] MEDS: PRENATAL VITAMINS W/ FOLIC ACID TABLET (FP) PO SCH (10:12)
[2023-10-13] MEDS: THIAMINE HCL 100 MG TABLET (FP) PO SCH (10:12)
[2023-10-13] MEDS: FOLIC ACID 1 MG TABLET (FP) PO SCH (10:12)
[2023-10-13] MEDS: NICOTINE 14 MG/24 HOURS TOPICAL PATCH TD SCH (10:18)
[2023-10-14] MEDS: chlordiazePOXIDE HCL 25 MG CAPSULE PO SCH (05:45)
[2023-10-14] MEDS: METHOCARBAMOL 500 MG TABLET PO PRN (22:22)
[2023-10-15] MEDS ORDERED: chlordiazePOXIDE HCL 10 MG CAPSULE PO PRN
[2023-10-15] MEDS: chlordiazePOXIDE HCL 10 MG CAPSULE PO SCH (05:07)
[2023-10-15] MEDS: IBUPROFEN 600 MG TABLET (FP) PO PRN (10:16)
[2023-10-15] MEDS: hydrOXYzine PAMOATE 25 MG CAPSULE (FP) PO PRN (22:14)
[2023-10-16] MEDS: chlordiazePOXIDE HCL 10 MG CAPSULE PO SCH (05:01)
[2023-10-17] MEDS: chlordiazePOXIDE HCL 10 MG CAPSULE PO ONE (05:47)
[2023-10-17 09:04] VITALS: BP 110/73; PULSE 85; RESP 18; TEMP 97.3
== END 2023-10-17 10:46 | disposition home or self-care (01) | DRG 775 ==
LOC: YASAS 10:05 → Y6N 13:27
PROVIDERS: ADMIT Allergy & Immunology; ATTEND Surgery
PROC: HZ2ZZZZ Detoxification Services for Substance Abuse Treatment (ICD-10-PCS; principal; 2023-10-12)
DX: F10.230 Alcohol dependence with withdrawal, uncomplicated (principal); F12.10 Cannabis abuse, uncomplicated; F17.210 Nicotine dependence, cigarettes, uncomplicated; G40.909 Epilepsy, unspecified, not intractable, without status epilepticus; I10 Essential (primary) hypertension; R63.4 Abnormal weight loss; Z68.21 Body mass index [BMI] 21.0-21.9, adult; Z56.0 Unemployment, unspecified; Z59.00 Homelessness unspecified; Z99.89 Dependence on other enabling machines and devices
CPT/HCPCS: 80305; 81025; 87635; 93005; 93010

== ENCOUNTER 2023-11-15 22:03 | Inpatient (IN) | payer OTHER ==
[2023-11-15 22:24] VITALS: BMI 22.3
[2023-11-15] MEDS ORDERED: BISMUTH SUBSALICYLATE 524 MG/30 ML PO PRN (23:03)
[2023-11-15] MEDS ORDERED: IBUPROFEN 400 MG TABLET (FP) PO PRN (23:03)
[2023-11-15] MEDS ORDERED: hydrOXYzine PAMOATE 25 MG CAPSULE (FP) PO PRN (23:03)
[2023-11-15] MEDS ORDERED: MAG HYDROX/AL HYDROX/SIMETH 30 ML UNIT-DOSE CUP PO PRN (23:03)
[2023-11-15] MEDS ORDERED: guaiFENesin 600 MG TABLET.ER (FP) PO PRN (23:03)
[2023-11-15] MEDS ORDERED: BENZONATATE 200 MG CAPSULE PO PRN (23:03)
[2023-11-15] MEDS ORDERED: IBUPROFEN 600 MG TABLET (FP) PO PRN (23:03)
[2023-11-15] MEDS ORDERED: MAGNESIUM HYDROX 2400MG/30ML ORAL SUSPENSION 30 ML CUP PO PRN (23:03)
[2023-11-15] MEDS ORDERED: ONDANSETRON *ODT* 4 MG TABLET SL PRN (23:03)
[2023-11-15] MEDS ORDERED: NALOXONE HCL (KLOXXADO) 8 MG SPRAY NS PRN (23:03)
[2023-11-15] MEDS ORDERED: BENZOCAINE/MENTHOL (CHLORASEPTIC ) LOZENGE MM PRN (23:03)
[2023-11-15] MEDS ORDERED: POLYETHYLENE GLYCOL (HEALTHYLAX) 3350 17 GM PACKET PO PRN (23:03)
[2023-11-15] MEDS ORDERED: ACETAMINOPHEN 325 MG TABLET (FP) PO PRN (23:03)
[2023-11-15] MEDS ORDERED: NALOXONE HCL 0.4 MG/ML VIAL IM PRN (23:03)
[2023-11-15] MEDS ORDERED: NICOTINE POLACRILEX 2 MG GUM BUC PRN (23:03)
[2023-11-15] MEDS ORDERED: DICYCLOMINE HCL 10 MG CAPSULE PO PRN (23:03)
[2023-11-15] MEDS ORDERED: LOPERAMIDE HCL 2 MG CAPSULE PO PRN (23:03)
[2023-11-16] MEDS ORDERED: chlordiazePOXIDE HCL 25 MG CAPSULE PO PRN (09:39)
[2023-11-16] MEDS: levETIRAcetam 500 MG TABLET (FP) PO SCH (10:18)
[2023-11-16] MEDS: NICOTINE 14 MG/24 HOURS TOPICAL PATCH TD SCH (10:18)
[2023-11-16] MEDS: PRENATAL VITAMINS W/ FOLIC ACID TABLET (FP) PO SCH (10:18)
[2023-11-16 12:00] LABS: HEMATOCRIT 31.3 % (32.4-45.2); HEMOGLOBIN 10.5 GM/dL (10.7-15.3); MCH 33.9 pg (25.7-33.7); MCHC 33.4 g/dl (32.0-36.0); MEAN CELL VOLUME 101.5 fl (80-96); MEAN PLT VOLUME 6.9 fl (7.5-11.1); PLATELET COUNT 222 10^3/uL (134-434); RBC 3.08 M/mm3 (3.60-5.2); RDW 16.3 % (11.6-15.6); WHITE BLOOD COUNT 2.9 K/mm3 (4.0-10.0)
[2023-11-16 12:15] LABS: POTASSIUM 3.9 mmol/L (3.5-5.1)
[2023-11-16 12:33] LABS: CALCIUM 8.2 mg/dL (8.5-10.1)
[2023-11-16 12:34] LABS: BLOOD UREA NITROGEN 4.4 mg/dL (7-18)
[2023-11-16 12:37] LABS: CREATININE 0.6 mg/dL (0.55-1.3)
[2023-11-16 12:39] LABS: BILIRUBIN,TOTAL 1.2 mg/dL (0.2-1); TOT PROT 7.2 g/dl (6.4-8.2)
[2023-11-16] MEDS: chlordiazePOXIDE HCL 25 MG CAPSULE PO SCH (17:10)
[2023-11-16] MEDS: THIAMINE HCL 100 MG TABLET (FP) PO SCH (22:34)
[2023-11-16] MEDS: MELATONIN 5 MG TABLETS PO SCH (22:34)
[2023-11-18] MEDS: chlordiazePOXIDE HCL 25 MG CAPSULE PO SCH (05:46)
[2023-11-19] MEDS ORDERED: chlordiazePOXIDE HCL 10 MG CAPSULE PO PRN
[2023-11-19] MEDS: chlordiazePOXIDE HCL 10 MG CAPSULE PO SCH (05:27)
[2023-11-19] MEDS: METHOCARBAMOL 500 MG TABLET PO PRN (22:19)
[2023-11-20] MEDS: chlordiazePOXIDE HCL 10 MG CAPSULE PO SCH (05:20)
[2023-11-21] MEDS: chlordiazePOXIDE HCL 10 MG CAPSULE PO ONE (05:50)
[2023-11-21 06:09] VITALS: RESP 16
[2023-11-21 09:47] VITALS: BP 106/68; PULSE 90; TEMP 98.2
== END 2023-11-21 08:58 | disposition home or self-care (01) | DRG 775 ==
LOC: YASAS 22:03 → Y3N 23:47
PROVIDERS: ADMIT Allergy & Immunology; ATTEND Surgery
PROC: HZ2ZZZZ Detoxification Services for Substance Abuse Treatment (ICD-10-PCS; principal; 2023-11-15)
DX: F10.230 Alcohol dependence with withdrawal, uncomplicated (principal); F12.20 Cannabis dependence, uncomplicated; F17.210 Nicotine dependence, cigarettes, uncomplicated; G40.909 Epilepsy, unspecified, not intractable, without status epilepticus; I10 Essential (primary) hypertension; Z87.81 Personal history of (healed) traumatic fracture; Z99.89 Dependence on other enabling machines and devices; Z28.310 Unvaccinated for COVID-19; Z28.9 Immunization not carried out for unspecified reason; Z59.01 Sheltered homelessness; Z91.81 History of falling
CPT/HCPCS: 36415; 70450-TC; 71046-TC-FY; 72125-TC; 80053; 80307; 81025; 83735; 84100; 84484; 84703; 85025; 85027; 85610; 85730; 86780; 93005; 93010; 99283-25

== ENCOUNTER 2023-12-01 09:51 | Inpatient (IN) | payer OTHER ==
[2023-12-01 10:48] VITALS: BMI 22.6
[2023-12-01] MEDS ORDERED: MAGNESIUM HYDROX 2400MG/30ML ORAL SUSPENSION 30 ML CUP PO PRN (10:58)
[2023-12-01] MEDS ORDERED: LOPERAMIDE HCL 2 MG CAPSULE PO PRN (10:58)
[2023-12-01] MEDS ORDERED: POLYETHYLENE GLYCOL (HEALTHYLAX) 3350 17 GM PACKET PO PRN (10:58)
[2023-12-01] MEDS ORDERED: DICYCLOMINE HCL 10 MG CAPSULE PO PRN (10:58)
[2023-12-01] MEDS ORDERED: NALOXONE HCL (KLOXXADO) 8 MG SPRAY NS PRN (10:58)
[2023-12-01] MEDS ORDERED: BENZOCAINE/MENTHOL (CHLORASEPTIC ) LOZENGE MM PRN (10:58)
[2023-12-01] MEDS ORDERED: LORazepam 1 MG TABLET PO PRN (10:58)
[2023-12-01] MEDS ORDERED: IBUPROFEN 400 MG TABLET (FP) PO PRN (10:58)
[2023-12-01] MEDS ORDERED: NALOXONE HCL 0.4 MG/ML VIAL IM PRN (10:58)
[2023-12-01] MEDS ORDERED: BENZONATATE 200 MG CAPSULE PO PRN (10:58)
[2023-12-01] MEDS ORDERED: ONDANSETRON *ODT* 4 MG TABLET SL PRN (10:58)
[2023-12-01] MEDS ORDERED: BISMUTH SUBSALICYLATE 524 MG/30 ML PO PRN (10:58)
[2023-12-01] MEDS ORDERED: ACETAMINOPHEN 325 MG TABLET (FP) PO PRN (10:58)
[2023-12-01] MEDS ORDERED: MAG HYDROX/AL HYDROX/SIMETH 30 ML UNIT-DOSE CUP PO PRN (10:58)
[2023-12-01] MEDS ORDERED: guaiFENesin 600 MG TABLET.ER (FP) PO PRN (10:58)
[2023-12-01] MEDS: PRENATAL VITAMINS W/ FOLIC ACID TABLET (FP) PO SCH (11:29)
[2023-12-01] MEDS: LORazepam 2 MG TABLET PO SCH (11:29)
[2023-12-01] MEDS: NICOTINE 7 MG/24 HOURS TOPICAL PATCH TD SCH (11:29)
[2023-12-01] MEDS ORDERED: LORazepam 2 MG TABLET ONE (11:32)
[2023-12-01] MEDS ORDERED: NICOTINE 7 MG/24 HOURS TOPICAL PATCH TD ONE (11:32)
[2023-12-01] MEDS ORDERED: PRENATAL VITAMINS W/ FOLIC ACID TABLET (FP) PO ONE (11:33)
[2023-12-01] MEDS ORDERED: METHOCARBAMOL 500 MG TABLET ONE (11:39)
[2023-12-01] MEDS: METHOCARBAMOL 500 MG TABLET PO PRN (11:57)
[2023-12-01] MEDS: MELATONIN 5 MG TABLETS PO SCH (22:07)
[2023-12-01] MEDS: THIAMINE 100 MG TABLET PO SCH (22:07)
[2023-12-01] MEDS: levETIRAcetam 500 MG TABLET (FP) PO SCH (22:07)
[2023-12-02] MEDS: FOLIC ACID 1 MG TABLET (FP) PO SCH (11:07)
[2023-12-02 11:50] LABS: HEMATOCRIT 32.6 % (32.4-45.2); HEMOGLOBIN 11.1 GM/dL (10.7-15.3); MCH 34.3 pg (25.7-33.7); MEAN CELL VOLUME 100.9 fl (80-96); MEAN PLT VOLUME 7.8 fl (7.5-11.1); PLATELET COUNT 300 10^3/uL (134-434); RBC 3.23 M/mm3 (3.60-5.2); RDW 15.2 % (11.6-15.6)
[2023-12-02 11:51] LABS: POTASSIUM 3.6 mmol/L (3.5-5.1)
[2023-12-02] MEDS: hydrOXYzine PAMOATE 25 MG CAPSULE (FP) PO PRN (11:54)
[2023-12-02 11:57] LABS: BLOOD UREA NITROGEN 4.1 mg/dL (7-18); CREATININE 0.5 mg/dL (0.55-1.3)
[2023-12-02 11:58] LABS: CALCIUM 9.3 mg/dL (8.5-10.1); TOT PROT 7.5 g/dl (6.4-8.2)
[2023-12-02 11:59] LABS: BILIRUBIN,TOTAL 1.1 mg/dL (0.2-1)
[2023-12-03] MEDS: LORazepam 1 MG TABLET PO SCH (05:53)
[2023-12-03] MEDS: IBUPROFEN 600 MG TABLET (FP) PO PRN (05:54)
[2023-12-03] MEDS: LACTULOSE 20 GM/30 ML UDC (FOR ORAL USE ONLY) PO SCH (15:14)
[2023-12-04] MEDS ORDERED: LORazepam 0.5 MG TABLET PO PRN
[2023-12-04] MEDS: LORazepam 0.5 MG TABLET PO SCH (05:34)
[2023-12-04] MEDS ORDERED: NICOTINE POLACRILEX 2 MG GUM BUC PRN (18:05)
[2023-12-05] MEDS: LORazepam 0.5 MG TABLET PO ONE (05:50)
[2023-12-05 09:25] VITALS: BP 139/70; PULSE 90; RESP 18; TEMP 97.1
== END 2023-12-05 09:43 | disposition home or self-care (01) | DRG 775 ==
LOC: YASAS 09:51 → Y6N 11:35
PROVIDERS: ADMIT Allergy & Immunology; ATTEND Surgery
PROC: HZ2ZZZZ Detoxification Services for Substance Abuse Treatment (ICD-10-PCS; principal; 2023-12-01)
DX: F10.230 Alcohol dependence with withdrawal, uncomplicated (principal); F12.10 Cannabis abuse, uncomplicated; F17.210 Nicotine dependence, cigarettes, uncomplicated; E72.20 Disorder of urea cycle metabolism, unspecified; G40.909 Epilepsy, unspecified, not intractable, without status epilepticus; I10 Essential (primary) hypertension; Z99.89 Dependence on other enabling machines and devices; Z59.01 Sheltered homelessness
CPT/HCPCS: 36415; 70450-TC; 71250-TC; 72125-TC; 73610-TC-RT-FY; 73630-TC-RT-FY; 80053; 80307; 81025; 82140; 83735; 84703; 85025; 85027; 86780; 93005; 93010; 99283-25

== ENCOUNTER 2023-12-27 22:00 | Inpatient (IN) | payer OTHER ==
[2023-12-27 22:49] VITALS: BMI 22.3
[2023-12-27] MEDS ORDERED: NICOTINE POLACRILEX 2 MG GUM BUC PRN (22:52)
[2023-12-27] MEDS ORDERED: ONDANSETRON *ODT* 4 MG TABLET SL PRN (22:52)
[2023-12-27] MEDS ORDERED: BENZONATATE 200 MG CAPSULE PO PRN (22:52)
[2023-12-27] MEDS ORDERED: guaiFENesin 600 MG TABLET.ER (FP) PO PRN (22:52)
[2023-12-27] MEDS ORDERED: BISMUTH SUBSALICYLATE 524 MG/30 ML PO PRN (22:52)
[2023-12-27] MEDS ORDERED: NICOTINE POLACRILEX 2 MG LOZENGE BC PRN (22:52)
[2023-12-27] MEDS ORDERED: LOPERAMIDE HCL 2 MG CAPSULE PO PRN (22:52)
[2023-12-27] MEDS ORDERED: BENZOCAINE/MENTHOL (CHLORASEPTIC ) LOZENGE MM PRN (22:52)
[2023-12-27] MEDS ORDERED: IBUPROFEN 400 MG TABLET (FP) PO PRN (22:52)
[2023-12-27] MEDS ORDERED: POLYETHYLENE GLYCOL (HEALTHYLAX) 3350 17 GM PACKET PO PRN (22:52)
[2023-12-27] MEDS ORDERED: DICYCLOMINE HCL 10 MG CAPSULE PO PRN (22:52)
[2023-12-27] MEDS ORDERED: IBUPROFEN 600 MG TABLET (FP) PO PRN (22:52)
[2023-12-27] MEDS ORDERED: MAG HYDROX/AL HYDROX/SIMETH 30 ML UNIT-DOSE CUP PO PRN (22:52)
[2023-12-27] MEDS ORDERED: ACETAMINOPHEN 325 MG TABLET (FP) PO PRN (22:52)
[2023-12-27] MEDS ORDERED: levETIRAcetam 500 MG TABLET (FP) PO ONE (22:58)
[2023-12-27] MEDS: levETIRAcetam 500 MG TABLET (FP) PO SCH (23:00)
[2023-12-28] MEDS: PRENATAL VITAMINS W/ FOLIC ACID TABLET (FP) PO SCH (10:34)
[2023-12-28 17:16] LABS: HEMATOCRIT 32.9 % (32.4-45.2); MCH 33.3 pg (25.7-33.7); MCHC 33.3 g/dl (32.0-36.0); MEAN CELL VOLUME 99.9 fl (80-96); MEAN PLT VOLUME 7.3 fl (7.5-11.1); PLATELET COUNT 326 10^3/uL (134-434); RDW 15.2 % (11.6-15.6)
[2023-12-28 17:17] LABS: POTASSIUM 3.9 mmol/L (3.5-5.1)
[2023-12-28 17:22] LABS: ALBUMIN 3.1 g/dl (3.4-5.0); BLOOD UREA NITROGEN 4.4 mg/dL (7-18)
[2023-12-28 17:25] LABS: CREATININE 0.6 mg/dL (0.55-1.3)
[2023-12-28 17:26] LABS: TOT PROT 7.2 g/dl (6.4-8.2)
[2023-12-28 17:27] LABS: BILIRUBIN,TOTAL 0.9 mg/dL (0.2-1)
[2023-12-28] MEDS: MELATONIN 5 MG TABLETS PO SCH (22:25)
[2023-12-28] MEDS: THIAMINE 100 MG TABLET PO SCH (22:25)
[2023-12-28] MEDS: hydrOXYzine PAMOATE 25 MG CAPSULE (FP) PO PRN (22:26)
[2023-12-28] MEDS: METHOCARBAMOL 500 MG TABLET PO PRN (22:26)
[2023-12-29] MEDS: MAGNESIUM HYDROX 2400MG/30ML ORAL SUSPENSION 30 ML CUP PO PRN (09:27)
[2023-12-29] MEDS ORDERED: LORazepam 1 MG TABLET PO PRN (10:32)
[2023-12-29] MEDS ORDERED: HYDROCORTISONE 0.5% TOPICAL OINTMENT TUBE TP PRN (10:34)
[2023-12-29] MEDS: CYPROHEPTADINE HCL 4 MG TABLET PO SCH (10:48)
[2023-12-29] MEDS: LORazepam 2 MG TABLET PO SCH (10:48)
[2023-12-29] MEDS: ACAMPROSATE CALCIUM 333 MG TABLET.DR PO SCH (13:28)
[2023-12-31] MEDS: LORazepam 1 MG TABLET PO SCH (05:39)
[2023-12-31] MEDS: MELATONIN 5 MG TABLETS PO PRN (22:25)
[2024-01-01] MEDS ORDERED: LORazepam 0.5 MG TABLET PO PRN
[2024-01-01] MEDS: LORazepam 0.5 MG TABLET PO SCH (05:28)
[2024-01-02] MEDS: LORazepam 0.5 MG TABLET PO ONE (05:23)
[2024-01-02 13:35] VITALS: BP 115/79; PULSE 90; RESP 18; TEMP 97.7
== END 2024-01-02 13:14 | disposition home or self-care (01) | DRG 775 ==
LOC: YASAS 22:00 → Y6N 23:06 → UNDOADMIN 23:06 → Y6N 23:50 → Y3N 23:50
PROVIDERS: ADMIT Allergy & Immunology; ATTEND Surgery
PROC: HZ2ZZZZ Detoxification Services for Substance Abuse Treatment (ICD-10-PCS; principal; 2023-12-27)
DX: F10.230 Alcohol dependence with withdrawal, uncomplicated (principal); F12.20 Cannabis dependence, uncomplicated; F17.210 Nicotine dependence, cigarettes, uncomplicated; G40.909 Epilepsy, unspecified, not intractable, without status epilepticus; I10 Essential (primary) hypertension; D53.9 Nutritional anemia, unspecified; R26.89 Other abnormalities of gait and mobility; Z99.89 Dependence on other enabling machines and devices; Z59.01 Sheltered homelessness
CPT/HCPCS: 36415; 71046-TC-FY; 80053; 80305; 80307; 81025; 82010; 83735; 84443; 84484; 84703; 85025; 85027; 86780; 93005; 93010; 99283-25

== ENCOUNTER 2024-01-22 04:03 | Emergency (ER) | payer OTHER ==
[2024-01-22 04:13] VITALS: BP 113/81; PULSE 78; RESP 18; TEMP 97.4; BMI 22.6
[2024-01-22] MEDS ORDERED: ACETAMINOPHEN 325 MG TABLET (FP) ONE (04:32)
[2024-01-22] MEDS ORDERED: LIDOCAINE 4% PATCH TP ONE (04:33)
[2024-01-22] MEDS: LIDOCAINE 5% TOPICAL PATCH TP ONE (04:35)
[2024-01-22] MEDS: ACETAMINOPHEN 325 MG TABLET (FP) PO ONE (04:35)
[2024-01-22 05:05] LABS: HCG,QUALITATIVE URINE Negative
[2024-01-22 05:12] LABS: EPI CELLS >36 /uL (0-25.1); HYALINE CASTS 2 /uL (0-3.1); PH,URINE 6.5 (5.0-8.0); URINE APPEARANCE CLEAR; URINE BACTERIA 363 /uL (0-1359); URINE BILIRUBIN NEGATIVE (NEGATIVE); URINE COLOR YELLOW; URINE GLUCOSE (UA) NEGATIVE (NEGATIVE); URINE KETONE NEGATIVE (NEGATIVE); URINE LEUK ESTERASE NEGATIVE (NEGATIVE); URINE NITRITE NEGATIVE (NEGATIVE); URINE PROTEIN 1+ (NEGATIVE); URINE RBC 10 /uL (0-23.9); URINE UROBILINOGEN 0.2 mg/dL (0.2-1.0); URINE WBC 25 /uL (0-25.8)
[2024-01-22] MEDS ORDERED: KETOROLAC TROMETHAMINE 30 MG/1 ML VIAL ONE (05:39)
[2024-01-22] MEDS: KETOROLAC TROMETHAMINE 30 MG/1 ML VIAL IM ONE (05:41)
[2024-01-22] MEDS ORDERED: LIDOCAINE PATCH REMOVAL MC ONE (16:00)
== END 2024-01-22 06:11 | disposition home or self-care (01) ==
LOC: JER 04:03
PROC: 3E0133Z Introduction of Anti-inflammatory into Subcutaneous Tissue, Percutaneous Approach (ICD-10-PCS; principal; 2024-01-22)
DX: M54.50 Low back pain, unspecified (principal)
CPT/HCPCS: 81003; 84703; 87086; 99284-25

== ENCOUNTER 2024-03-25 18:44 | Emergency (ER) | payer OTHER ==
[2024-03-25 19:10] VITALS: BP 114/76; PULSE 99; RESP 16; TEMP 98.3; BMI 22.3
[2024-03-25] MEDS ORDERED: THIAMINE HCL 200 MG/2 ML VIAL ONE (20:26)
[2024-03-25] MEDS ORDERED: HALOPERIDOL LACTATE 5 MG/ML IM ONE (20:51)
[2024-03-25] MEDS: THIAMINE HCL 200 MG/2 ML VIAL IVPB ONE (20:58)
== END 2024-03-25 21:17 | disposition left against medical advice (07) ==
LOC: JER 18:44
DX: R53.1 Weakness (principal); R27.0 Ataxia, unspecified; H55.00 Unspecified nystagmus
CPT/HCPCS: 70450-TC; 99284-25

== ENCOUNTER 2025-03-14 14:13 | Inpatient (IN) | payer OTHER ==
[2025-03-14 15:10] VITALS: BMI 20.5
[2025-03-14] MEDS ORDERED: hydrOXYzine PAMOATE 25 MG CAPSULE (FP) PO PRN (15:34)
[2025-03-14] MEDS ORDERED: NICOTINE POLACRILEX 2 MG GUM BUC PRN (15:34)
[2025-03-14] MEDS ORDERED: BENZONATATE 200 MG CAPSULE PO PRN (15:34)
[2025-03-14] MEDS ORDERED: NALOXONE (NARCAN) HCL 4 MG/0.1 ML SPRAY NS PRN (15:34)
[2025-03-14] MEDS ORDERED: IBUPROFEN 400 MG TABLET (FP) PO PRN (15:34)
[2025-03-14] MEDS ORDERED: ACETAMINOPHEN 325 MG TABLET (FP) PO PRN (15:34)
[2025-03-14] MEDS ORDERED: guaiFENesin 600 MG TABLET.ER (FP) PO PRN (15:34)
[2025-03-14] MEDS ORDERED: POLYETHYLENE GLYCOL (HEALTHYLAX) 3350 17 GM PACKET PO PRN (15:34)
[2025-03-14] MEDS ORDERED: MAG HYDROX/AL HYDROX/SIMETH 30 ML UNIT-DOSE CUP PO PRN (15:34)
[2025-03-14] MEDS ORDERED: BISMUTH SUBSALICYLATE 524 MG/30 ML PO PRN (15:34)
[2025-03-14] MEDS ORDERED: MAGNESIUM HYDROX 2400MG/30ML ORAL SUSPENSION 30 ML CUP PO PRN (15:34)
[2025-03-14] MEDS ORDERED: IBUPROFEN 600 MG TABLET (FP) PO PRN (15:34)
[2025-03-14] MEDS ORDERED: LOPERAMIDE HCL 2 MG CAPSULE PO PRN (15:34)
[2025-03-14] MEDS ORDERED: DICYCLOMINE HCL 10 MG CAPSULE PO PRN (15:34)
[2025-03-14] MEDS ORDERED: BENZOCAINE/MENTHOL (CHLORASEPTIC ) LOZENGE MM PRN (15:34)
[2025-03-14] MEDS ORDERED: ONDANSETRON *ODT* 4 MG TABLET SL PRN (15:34)
[2025-03-14] MEDS: levETIRAcetam 500 MG TABLET (FP) PO ONE (17:03)
[2025-03-14] MEDS ORDERED: levETIRAcetam 500 MG TABLET (FP) PO SCH (22:00)
[2025-03-14] MEDS: MELATONIN 5 MG TABLETS PO SCH (22:53)
[2025-03-14] MEDS: THIAMINE 100 MG TABLET PO SCH (22:54)
[2025-03-15] MEDS: PRENATAL VITAMINS W/ FOLIC ACID TABLET (FP) PO SCH (09:58)
[2025-03-15] MEDS: levETIRAcetam 500 MG TABLET (FP) PO SCH (09:58)
[2025-03-15 11:59] LABS: MCHC 33.0 g/dl (32.2-35.5); MEAN CELL VOLUME 101.8 fl (79.4-94.8); MEAN PLT VOLUME 9.9 fl (9.4-12.3); RDW 12.1 % (12.1-16.8)
[2025-03-15 14:15] LABS: CO2 27 mmol/L (21-32); GLUCOSE,RANDOM 75 mg/dL (74-106)
[2025-03-15 14:18] LABS: CREATININE 0.5 mg/dL (0.55-1.3); SGOT/AST 33 U/L (15-37)
[2025-03-15 14:19] LABS: TOT PROT 8.1 g/dl (6.4-8.2)
[2025-03-15 14:20] LABS: ALK PHOS 53 U/L (45-117)
[2025-03-15 14:25] LABS: SGPT/ALT 17 U/L (13-61)
[2025-03-16] MEDS: METHOCARBAMOL 500 MG TABLET PO PRN (21:11)
[2025-03-17 09:09] VITALS: BP 123/75; PULSE 75; RESP 14; TEMP 97.3
== END 2025-03-17 11:25 | disposition home or self-care (01) | DRG 775 ==
LOC: YASAS 14:13 → Y3N 16:32
PROVIDERS: ADMIT Allergy & Immunology; ATTEND Allergy & Immunology
PROC: HZ2ZZZZ Detoxification Services for Substance Abuse Treatment (ICD-10-PCS; principal; 2025-03-12)
DX: F10.230 Alcohol dependence with withdrawal, uncomplicated (principal); G40.909 Epilepsy, unspecified, not intractable, without status epilepticus; F17.210 Nicotine dependence, cigarettes, uncomplicated
CPT/HCPCS: 36415; 80053; 80305; 80307; 81025; 85027; 86780; 93005; 93010

== ENCOUNTER 2025-05-10 22:41 | Emergency (ER) | payer OTHER ==
[2025-05-10 22:48] VITALS: TEMP 98; BMI 25.7
[2025-05-11 00:10] LABS: ABSOLUTE IMMATURE GRANULOCYTES 0.02 x10^3/uL (0.0-0.031); BASOPHILS # 0.01 x10^3/uL (0.01-0.08); EOSINOPHIL % 1.5 % (0.7-5.8); EOSINOPHILS # 0.08 x10^3/uL (0.04-0.36); MCHC 32.0 g/dl (32.2-35.5); MEAN CELL VOLUME 102.2 fl (79.4-94.8); MEAN PLT VOLUME 9.0 fl (9.4-12.3); MONOCYTE # 0.34 x10^3/uL (0.24-0.86); MONOCYTE % 6.5 % (4.7-12.5); RDW 12.4 % (12.1-16.8)
[2025-05-11 00:43] LABS: GLUCOSE,RANDOM 83.0 mg/dL (74-106)
[2025-05-11 00:44] LABS: CO2 30.0 mmol/L (21-32); TOT PROT 9.3 g/dl (6.4-8.2)
[2025-05-11 00:46] LABS: ALK PHOS 57.0 U/L (40-150)
[2025-05-11 00:49] LABS: CREATININE 0.5 mg/dL (0.55-1.3); SGOT/AST 39.0 U/L (5-34); SGPT/ALT 21.0 U/L (0-55)
[2025-05-11] MEDS ORDERED: levETIRAcetam 500 MG TABLET (FP) PO ONE (01:29)
[2025-05-11] MEDS: levETIRAcetam 500 MG TABLET (FP) PO ONE (01:46)
[2025-05-11 05:18] VITALS: BP 120/82; PULSE 91; RESP 18
== END 2025-05-11 04:05 | disposition home or self-care (01) ==
LOC: JER 22:41
DX: G40.909 Epilepsy, unspecified, not intractable, without status epilepticus (principal); S06.9X9A Unspecified intracranial injury with loss of consciousness of unspecified duration, initial encounter; W01.198A Fall on same level from slipping, tripping and stumbling with subsequent striking against other object, initial encounter
CPT/HCPCS: 36415; 70450-TC; 70486-TC; 80053; 83735; 84100; 84703; 85025; 93005; 93010; 99285-25